=== PATIENT | female | born 1935 | race Caucasian/White ===

== ENCOUNTER → 2016-08-18 | Outpatient (CLI) | payer BC ==
[~2016-08-18] MED LIST: ACET-1256 PO; CZR50 PO; FLV1 PO; PRLSR20 PO; SIMV-150 PO; TRAM-10 PO; VTMD PO; XRL20 PO
[2016-08-18 17:29] LABS: CHOLESTEROL/HDL RATIO 2.4
== END | disposition home or self-care (01) ==
LOC: C.LABBFT 10:17
PROVIDERS: ATTEND Internal Medicine
DX: I65.29 Occlusion and stenosis of unspecified carotid artery (principal)

== ENCOUNTER → 2017-06-08 | Outpatient (CLI) | payer BC ==
[2017-06-08 17:50] LABS: BASO % 0.9 %; BASO ABS # 0.07 K/uL (0-0.2); COMPLETE YES; EOS % 1.3 %; HEMATOCRIT 43.8 % (37-47); IG% 0.1 %; LYMPH % 44.2 %; LYMPH ABS # 3.63 K/uL (1.2-3.4); MEAN CELL VOLUME 101.4 fL (80-100); MEAN CORPUSCULAR HEMOGLOBIN 33.3 pg (25-34); MEAN CORPUSCULAR HGB CONC 32.9 g/dl (32-36); MEAN PLATELET VOLUME 10.3 fL (7.4-10.4); MONO % 9.5 %; PLATELET COUNT 251 K/uL (130-400); RED BLOOD COUNT 4.32 M/uL (4.2-5.4); WHITE BLOOD COUNT 8.21 K/uL (4.8-10.8)
[2017-06-08 17:54] LABS: ALT/SGPT 17 U/L (12-78); AST/SGOT 15 U/L (15-37); BLOOD UREA NITROGEN 14 mg/dl (7-18); CALCIUM 9.5 mg/dl (8.5-10.1); CARBON DIOXIDE 29 mmol/L (21-32); CHLORIDE 108 mmol/L (98-107); CREATININE 0.72 mg/dl (0.60-1.20); GLUCOSE 97 mg/dl (70-99); POTASSIUM 3.6 mmol/L (3.5-5.1); SODIUM 142 mmol/L (136-145)
[2017-06-08 18:05] LABS: ALB/GLOB RATIO 1.1 (0.9-2); ALKALINE PHOSPHATASE 74 U/L (45-117)
== END | disposition home or self-care (01) ==
LOC: C.LABBFT 15:55
PROVIDERS: ATTEND Internal Medicine
DX: Z79.01 Long term (current) use of anticoagulants (principal); I10 Essential (primary) hypertension; M85.80 Other specified disorders of bone density and structure, unspecified site; Q21.1 Atrial septal defect

== ENCOUNTER 2020-08-13 19:27 | Inpatient (IN) ==
[2020-08-13] MEDS ORDERED: SODIUM CHLORIDE 0.9% 1000ML 1,000 ML IV ONE (19:43)
[2020-08-13] MEDS ORDERED: ACETAMINOPHEN 1,000 MG/100 ML VIAL IV STA (19:43)
[2020-08-13] MEDS ORDERED: ONDANSETRON INJ 2 MG/ML 2 ML VIAL IV STA (19:44)
[2020-08-13] MEDS ORDERED: OPTIRAY 320 125ml IV ONE (19:54)
[2020-08-13] MEDS ORDERED: METOCLOPRAMIDE HCL INJ 5 MG/ML 2 ML VIAL IV STA (19:59)
[2020-08-13] MEDS ORDERED: SODIUM CHLORIDE 0.9% 500 ML IV ONE (19:59)
[2020-08-13] MEDS ORDERED: PIPERACILLIN/TAZOBACTAM 4.5 GM/120 ML BAG IV ONE (20:02)
[2020-08-13] MEDS ORDERED: PIPERACILL/TAZOBAC CONSULT ACTIVE PRN (20:02)
[2020-08-13] MEDS ORDERED: DAPTOMYCIN IV ONE (20:02)
[2020-08-13] MEDS ORDERED: MAGNESIUM SULFATE / D5W 1 GM/100 ML BAG IV STA (20:06)
--- NOTE | 2020-08-13 20:11 | CT Scan Report ---
CT ANGIOGRAPHY OF THE CHEST, PULMONARY EMBOLUS PROTOCOL CLINICAL HISTORY: Shortness of breath. Evaluate for pulmonary embolus. COMPARISON STUDY: Chest radiograph April 15, 2015. TECHNIQUE: Following IV administration of 119 mL of Optiray-320, helical axial images of the chest we re obtained utilizing the pulmonary embolus protocol. Maximal intensity projections and sagittal and coronal reformats were viewed on an independent 3D workstation. IV contrast was administered withou t complication. Automated exposure control was utilized for the study. A dose lowering technique wa s utilized adhering to the principles of ALARA. FINDINGS: This exam is moderately compromised by respiratory motion artifact. No definite pulmonary embolus is identified. Apparent linear filling defects within several segmental left lower lobe branc hes are probably artifactual. No pericardial effusion is noted. No pneumothorax or pleural effusion i s noted. Lungs are suboptimally assessed given respiratory motion. There are mild groundglass opaciti es and tiny centrilobular nodules within the lungs. A few subpleural right lung nodules likely reflec t scarring or atelectasis. No acute fracture or suspicious lesion is noted within the bony thorax. Th e abdomen and pelvis will be reported separately. IMPRESSION: 1. Exam moderately compromised by respiratory motion artifact. No definite pulmonary emboli. Equivoca l linear filling defects within several segmental left lower lobe pulmonary arteries are likely artif actual. Chronic pulmonary emboli could appear similar but are considered less likely. 2. No consolidation. Minimal groundglass opacities and centrilobular nodules within the lungs. ACT 112: Negative or not required by law. Electronically signed by: Rufino Graves M.D. 08/13/2020 8:09 PM
--- NOTE | 2020-08-13 20:20 | CT Scan Report ---
CT OF THE ABDOMEN AND PELVIS WITH CONTRAST CLINICAL HISTORY: Severe abdominal pain. COMPARISON STUDY: CT of the abdomen and pelvis and pelvic ultrasound November 02, 2010. TECHNIQUE: Following IV administration of 119 mL of Optiray-320, axial images of the abdomen and pelv is were obtained from the lung bases to the proximal femurs. Images were reviewed in the axial, sagit lonnie, and coronal planes. IV contrast was administered without complication. Automated exposure contr ol was utilized for the study. A dose lowering technique was utilized adhering to the principles of ALARA. CT DOSE: 791.18 mGy.cm FINDINGS: Exam is mildly compromised by motion artifact as well as streak artifact from bilateral hip arthroplasties. No pneumatosis, free air or portal venous gas is present. There are calcified granul omas within the spleen and liver. There is no significant biliary ductal dilatation status post alan cystectomy. The adrenal glands, kidneys and pancreas are unremarkable. There is a probable 2 mm right renal calculus. There is no hydronephrosis. No peripancreatic infiltration is present. There is no p ancreatic ductal dilatation. A large amount of stool within the rectum is noted. There is mild perire ctal/presacral stranding. There is no fluid collection. There is no extraluminal gas. Colonic diverti culosis is noted without evidence for acute diverticulitis. There is mild gaseous distention of small and large bowel. No transition point is identified. Postoperative findings within the right colon ar e noted. There is no lymphadenopathy. No acute fracture or suspicious lesion is identified within the visualized skeletal structures. Major vasculature is patent. Tortuosity of the abdominal aorta is no wolfgang. IMPRESSION: 1. Large amount of stool within the rectum consistent with fecal impaction. Mild perirectal/presacral stranding may reflect stercoral colitis. Mild gaseous distention of small and large bowel which may be related to the stool within the rectum or represent an ileus. No transition point identified. 2. Exam mildly compromised by motion artifact and artifact from bilateral hip arthroplasties. 3. Colonic diverticulosis without evidence for acute diverticulitis. ACT 112: Negative or not required by law. Electronically signed by: Rufino Graves M.D. 08/13/2020 8:19 PM
[2020-08-13 20:32] LABS: iSTAT Creatinine 0.8 mg/dl (0.6-1.3); iSTAT Hemoglobin 12.9 g/dl (12.0-16.0); iSTAT Ionized Calcium 0.89 mmol/l (1.12-1.32); iSTAT Potassium 2.7 mmol/L (3.3-5.0)
[2020-08-13 20:35] LABS: Influenza A virus by PCR Negative (Neg); Influenza B virus by PCR Negative (Neg); RSV by PCR Negative (Neg); SARS CoV2 RNA(COVID-19) InHosp NEGATIVE (Negative)
[2020-08-13] MEDS ORDERED: methylPREDNISolone 125 MG/2 ML VIAL IV STA (20:53)
[2020-08-13 20:55] LABS: Basophils # (auto) 0.02 K/uL (0-0.2); Basophils % (auto) 0.2 %; Eosinophils # (auto) 0.01 K/uL (0-0.5); Eosinophils % (auto) 0.1 %; Hematocrit (blood only) 43.9 % (37-47); Hemoglobin 14.9 g/dL (12.0-16.0); Immature Granulocytes # (auto) 0.07 K/uL (0.00-0.02); Immature Granulocytes % (auto) 0.5 %; Lymphocytes # (auto) 2.57 K/uL (1.2-3.4); Lymphocytes % (auto) 19.4 %; Mean Corpuscular Hemoglobin 34.3 pg (25-34); Mean Corpuscular Hgb Conc 33.9 g/dL (32-36); Mean Corpuscular Volume 101.2 fL (80-100); Mean Platelet Volume 9.9 fL (7.4-10.4); Monocytes # (auto) 0.92 K/uL (0.11-0.59); Monocytes % (auto) 6.9 %; Neutrophils # (auto) 9.69 K/uL (1.4-6.5); Neutrophils % (auto) 72.9 %; Platelet Count 295 K/uL (130-400); RDW Coefficient of Variation 16.9 % (11.5-14.5); RDW Standard Deviation 62.5 fL (36.4-46.3); Red Blood Count 4.34 M/uL (4.2-5.4); White Blood Count 13.28 K/uL (4.8-10.8)
--- NOTE | 2020-08-13 20:59 | XRay Report ---
XR chest 1V portable CLINICAL HISTORY: cvc placement COMPARISON STUDY: Chest CT performed earlier today. FINDINGS: Tip of the left internal jugular central line projects in the SVC. Skin folds project over the chest. There is no pneumothorax or pleural effusion. Calcified granuloma within the left lower lo be is noted. There is a calcified right hilar node. Cardiac size is normal. There is no consolidation . There is no evidence for pulmonary edema. Mild gaseous distention of several bowel loops within the upper abdomen is better depicted on the abdominal CT. IMPRESSION: No pneumothorax placement of a left internal jugular central line. ACT 112: Negative or not required by law. Electronically signed by: Rufino Graves M.D. 08/13/2020 8:58 PM
[2020-08-13 21:02] LABS: Base Excess VBG -3.1 mEq/L; HCO3 VBG 22 mmol/L; Oxygen Saturation VBG < 60.0 %; PCO2 VBG 38 mmHg (38-50); PO2 VBG 25 mmHg; pH VBG 7.37 (7.36-7.41)
[2020-08-13] MEDS: POTASSIUM CHLORIDE / WTR 10 MEQ/100 ML PLCT IV SCH ×2 (21:12→23:16)
[2020-08-13 21:17] LABS: INR 1.4 (0.9-1.1); Partial Thromboplastin Ratio 1.2; Partial Thromboplastin Time 32.5 Seconds (21.0-31.0); Prothrombin Time 14.7 Seconds (9.0-12.0)
[2020-08-13] MEDS ORDERED: LEVALBUTEROL HCL 1.25 MG/3 ML NEB NEB STA ×2 (21:18)
--- NOTE | 2020-08-13 21:18 | Emergency Department Note ---
History of Present Illness General Chief complaint: Abdominal Pain Stated complaint: AB PAIN Source: patient, family (daughter), EMS, RN notes reviewed and old records reviewed Mode of arrival: EMS Limitations: altered mental status and physical limitation (CHOCTAW) History of Present Illness Provider complaint: abdominal pain Onset (ago): day(s) 5 Location: abdomen Radiation: back Severity: severe Pain Consistency: + constant Maximum Pain Intensity: 10 Current Pain Intensity: 10 Quality: + aching Relieved By: + movement Exacerbated By: + eating Associated symptoms: + confusion, + loss of appetite, + nausea/vomiting, + shortness of breath and + weakness; no chest pain, no cough, no diaphoresis, no fever/chills and no headaches Treatments prior to arrival: none This is an 85-year-old female sent in by the family over concerns of the patient had become weak and hypoxic over the past several days. The patient's family reports that the patient stopped eating approximately 5 days ago. She has not had any stool output and has had no urine output. The patient per the daughter refused to come to the hospital despite the family trying move her multiple times. Upon arrival to the emergency department via EMS the patient is hypoxic on a 15 L nonrebreather mask. She is also hypotensive and tachycardic complaining of abdominal pain which she describes as an ache radiating into her back. She reports eating makes the pain worse and immobilization makes the pain better. She has not taken anything for the pain. Home Medications Medication Instructions Recorded Confirmed Type acetaminophen 500 mg tablet 1,000 mg PO DAILY tab 03/13/19 08/13/20 History cholecalciferol (vitamin D3) 25 1,000 units PO DAILY 03/20/19 08/13/20 History mcg (1,000 unit) capsule folic acid 1 mg tablet 1 mg PO DAILY #90 tab 08/28/19 08/13/20 Rx rivaroxaban 15 mg tablet 15 mg PO QPM #90 tab 10/17/19 08/13/20 Rx omeprazole 20 mg capsule,delayed 20 mg PO BID #180 cap 01/16/20 08/13/20 Rx release losartan 50 mg tablet 50 mg PO DAILY #90 tab 06/03/20 08/13/20 Rx diclofenac sodium 1 % topical gel 4 g TOPICAL QID #100 g 06/23/20 08/13/20 Rx multivitamin 1 tab PO DAILY 06/30/20 08/13/20 History Allergies Allergy/AdvReac Type Severity Reaction Status Date / Time sulfamethoxazole Allergy Mild MOUTH SORES Verified 08/13/20 20:07 trimethoprim Allergy Mild MOUTH SORES Verified 08/13/20 20:07 morphine AdvReac Intermediate HEART Verified 08/13/20 20:07 PALPITATIONS,CHEST TIGHTNESS,VOMITING Opioid Analgesics AdvReac Intermediate HEART Uncoded 08/13/20 20:07 PALPITATIONS, CHEST TIGHTNESS, VOMITING Past Med/Surg History Medical History Depression History of arterial thrombosis History of Clostridium difficile colitis MRSA (methicillin resistant Staphylococcus aureus) Rheumatic fever Spinal stenosis Tubular adenoma of colon Social History Smoking Status: Never smoker Hx Alcohol Use: No Hx Substance Use: No Preferred Language: Yi marital status: Current Living Situation: Family current occupational status: retired Feels Safe at Home: Yes Dental Care, Regularly: No Physical Activity Frequency: Does not Exercise Seatbelt Use: always Sunscreen Use: No Review of Systems A total of 10 systems reviewed and were otherwise negative Physical Exam Vital Signs Vital Signs - 24 hr 08/13/20 19:52 08/13/20 19:57 08/13/20 20:21 Temperature Temperature Source Pulse Rate 103 H 100 H Pulse Rate [Right Finger] 113 H Respiratory Rate 22 22 22 Respiratory Effort / Characteristics Respiratory Depth Normal Blood Pressure 134/59 L Blood Pressure [Right Arm] 100/68 Blood Pressure Mean 84 Blood Pressure Mean [Right Arm] 78 Blood Pressure Position [Right Arm] Lying Pulse Oximetry 79 L 94 90 Oxygen Delivery Method Non-rebreather BiPAP Oxygen Flow Rate 15 Fraction of Inspired Oxygen 100 Sepsis Recent Fever Within 48 Hours No Sepsis New/Unexplained Change in Mental Status N/A Sepsis Action Taken by Nursing No Action Required 08/13/20 20:58 08/13/20 21:47 08/13/20 21:50 Temperature 37.0 C Temperature Source Rectal Pulse Rate Pulse Rate [Right Finger] 120 H 90 95 H Respiratory Rate 30 H 18 22 Respiratory Effort / Characteristics Non-Labored Spontaneous Respiratory Depth Normal Normal Blood Pressure Blood Pressure [Right Arm] 92/62 L 62/50 L Blood Pressure Mean Blood Pressure Mean [Right Arm] 72 54 Blood Pressure Position [Right Arm] Lying Pulse Oximetry 88 L 98 98 Oxygen Delivery Method BiPAP Nasal Cannula Nasal Cannula Oxygen Flow Rate 6 4 Fraction of Inspired Oxygen Sepsis Recent Fever Within 48 Hours Sepsis New/Unexplained Change in Mental Status Sepsis Action Taken by Nursing VITAL SIGNS - Vital signs and nursing notes were reviewed. GENERAL - 85-year-old female appearing stated age who is in acute distress. [place]CTAW SKIN - Ducub ulcer Stage 2 HEAD - NC/AT. EYES - PERRL with EOMI bilaterally. Sclera anicteric. Palpebral conjunctiva pink and moist with no injection noted. EARS - No deformities of external structures noted on gross examination bilaterally. No pain elicited with palpation of the tragus bilaterally. External auditory canals without discharge or otorrhea. Tympanic membranes pearly arevalo without retraction or bulging. No fluid or purulent material visualized behind the TM. Handle of malleus, umbo, cone of light, pars tensa/flaccid all easily visualized. NOSE - Midline and without cyanosis. No epistaxis or purulent drainage noted. Septum midline without deviation or septal hematoma noted. MOUTH/OROPHARYNX - Without perioral cyanosis. Buccal mucosa pink and moist and without leukoplakia. Tongue midline with equal elevation of palate bilaterally. No tonsillar hypertrophy, erythema, or exudates noted. dentition noted. NECK - Neck with FROM. Supple to palpation. lymphadenopathy noted. No nuchal rigidity. LUNGS - Chest wall symmetric without accessory muscle use, intercostals retractions, or central cyanosis. Normal vesicular breath sounds CTA B/L. No wheezes, rales, or rhonchi appreciated. CARDIAC - RRR with S1/S2. No murmur, rubs, or gallops appreciated. ABDOMEN - Abdominal contour without pulsations or visible masses. BS normoactive all four quadrants. No tenderness, palpable masses, hepatosplenomegaly, or ascites noted. RECTUM- Large amount of brown stool removed in rectal vault, no blood present EXTREMITIES - No clubbing or peripheral cyanosis. No pretibial edema present. +3/5 radial, posterior tibial, and dorsalis pedis pulses palpated throughout. +5/5 strength noted in UE/LE bilaterally. NEUROLOGIC - Cranial nerves II through XII grossly intact. Sensory intact to light touch throughout. Patellar reflexes +2/4. PSYCH - A&Ox3 and cooperates fully with examiner. Pt is very pleasant and i nteracts well with examiner. Procedures Central Line Placement Left IJ: Time Out Performed: Yes (I performed the procedure) Patient Placed on Monitor/Pulse Ox: Yes MD Prep: mask, gown and gloves Central Line Prep: Povidone-Iodine 1%, Chlorhexidine scrub and sterile drapes applied Local Anesthetic: lidocaine 1% Amount of anesthesia used (mL): 3 Ultrasound Used for Placement: Yes Central Line Lumen Inserted: triple Post Procedure: sutured in place, good blood return, all ports aspirated, flushed, capped and sterile dressing applied Post Procedure X-Ray: tip of catheter in good position and no pneumothorax seen Patient Tolerated Procedure: well Complications: none Rectal Disimpaction Time out performed rectal disimpaction: Yes Indication: fecal impaction Procedural Sedation: No Sedation/Analgesia: none Technique: manual disimpaction with gloved finger Result: significant stool output Patient Tolerated Procedure: well and no complications Complications: none Course Administered Medications Potassium Chloride (K Jonathan / Wtr) 10 meq in 100 mls @ 100 mls/hr IV Q1H TRISH Stop: 08/13/20 22:59 Last Admin: 08/13/20 21:12 Dose: 100 mls/hr Documented by: [id number] Discontinued Medications Acetaminophen (Ofirmev) 1,000 mg in 100 mls @ 400 mls/hr IV NOW STA Stop: 08/13/20 19:57 Last Infusion: 08/13/20 21:11 Dose: 0 mls/hr Documented by: [id number] Admin: 08/13/20 20:14 Dose: 400 mls/hr Documented by: [id number] Sodium Chloride (Nss 1000ml) 1,000 mls @ 999 mls/hr IV .Q1H1M ONE Stop: 08/13/20 20:43 Last Infusion: 08/13/20 21:45 Dose: 0 mls/hr Documented by: [id number] Admin: 08/13/20 20:14 Dose: 999 mls/hr Documented by: [id number] Sodium Chloride (Nss) 500 mls @ 999 mls/hr IV .Q31M ONE Stop: 08/13/20 20:29 Last Infusion: 08/13/20 21:45 Dose: 0 mls/hr Documented by: [id number] Admin: 08/13/20 21:11 Dose: 999 mls/hr Documented by: [id number] Piperacillin Sod/Tazobactam Sod (Zosyn) 4.5 gm in 120 mls @ 240 mls/hr IV NOW ONE Stop: 08/13/20 20:31 Last Infusion: 08/13/20 21:12 Dose: 0 mls/hr Documented by: [id number] Admin: 08/13/20 20:13 Dose: 240 mls/hr Documented by: [id number] Daptomycin 272 mg/ Syringe 5.44 mls @ 2.72 mls/min IV NOW ONE; Protocol Stop: 08/13/20 20:03 Last Admin: 08/13/20 21:04 Dose: 2.72 mls/min Documented by: [id number] Magnesium Sulfate/Dextrose (Magnesium Sulfate / D5w) 1 gm in 100 mls @ 100 mls/hr IV NOW STA Stop: 08/13/20 21:05 Last Infusion: 08/13/20 21:45 Dose: 0 mls/hr Documented by: [id number] Admin: 08/13/20 20:13 Dose: 100 mls/hr Documented by: [id number] Ioversol (Optiray 320 125ml) 119 ml IV ONCE ONE Stop: 08/13/20 19:55 Last Admin: 08/13/20 19:54 Dose: 119 ml Documented by: [id number] Levalbuterol HCl (Levalbuterol Hcl 1.25 Mg/3 Ml Neb) 1.25 mg NEB NOW STA Stop: 08/13/20 21:19 Last Admin: 08/13/20 21:44 Dose: 1.25 mg Documented by: [id number] Levalbuterol HCl (Levalbuterol Hcl 1.25 Mg/3 Ml Neb) 1.25 mg NEB NOW STA Stop: 08/13/20 21:19 Last Admin: 08/13/20 21:44 Dose: Not Given Documented by: [id number] Methylprednisolone (Methylprednisolone 125 Mg/2 Ml Vial) 60 mg IV NOW STA Stop: 08/13/20 20:54 Last Admin: 08/13/20 21:11 Dose: 65 mg Documented by: [id number] Metoclopramide HCl (Metoclopramide Hcl Inj 5 Mg/Ml 2 Ml Vial) 10 mg IV NOW STA Stop: 08/13/20 20:00 Last Admin: 08/13/20 20:13 Dose: 10 mg Documented by: [id number] Morphine Sulfate (Morphine Sulfate 2 Mg/Ml Carp) 2 mg IV NOW STA Stop: 08/13/20 19:44 Last Admin: 08/13/20 21:53 Dose: 2 mg Documented by: [id number] Morphine Sulfate (Morphine Sulfate 2 Mg/Ml Carp) Confirm Administered Dose 2 mg .ROUTE .STK-MED ONE Stop: 08/13/20 21:52 Last Admin: 08/13/20 22:03 Dose: Not Given Documented by: [id number] Ondansetron HCl (Ondansetron Inj 2 Mg/Ml 2 Ml Vial) 4 mg IV NOW STA Stop: 08/13/20 19:45 Last Admin: 08/13/20 21:53 Dose: 4 mg Documented by: [id number] Ondansetron HCl (Ondansetron Inj 2 Mg/Ml 2 Ml Vial) Confirm Administered Dose 4 mg .ROUTE .STSponge-MED ONE Stop: 08/13/20 21:52 Last Admin: 08/13/20 22:03 Dose: Not Given Documented by: [id number] Medical Decision Making Differential Diagnosis Sepsis, UTI, pneumonia, metabolic, electrolyte abnormalities, cardiac sources, intracerebral event, toxicologic, neurologic, as well as other pathologies. Medical Records Attestation: I reviewed the patient's medical records. Home Medications Current Medication List: was personally reviewed by me Laboratory Data Attestation: I reviewed the patient's lab results. Result diagrams: 08/13/20 20:39 08/13/20 20:39 Lab Results 08/13/20 08/13/20 08/13/20 Range/Units 19:49 19:49 20:19 WBC (4.8-10.8) K/uL RBC (4.2-5.4) M/uL Hgb (12.0-16.0) g/dL POC Hgb 12.9 (12.0-16.0) g/dl Hct (37-47) % POC Hct 38 (37-47) % MCV (80-100) fL MCH (25-34) pg MCHC (32-36) g/dL RDW Std Deviation (36.4-46.3) fL RDW Coeff of Steve (11.5-14.5) % Plt Count (130-400) K/uL MPV (7.4-10.4) fL Immature Gran % (Auto) % Neut % (Auto) % Lymph % (Auto) % [place] % (Auto) % Eos % (Auto) % Baso % (Auto) % Neut # (Auto) (1.4-6.5) K/uL Lymph # (Auto) (1.2-3.4) K/uL [place] # (Auto) (0.11-0.59) K/uL Eos # (Auto) (0-0.5) K/uL Baso # (Auto) (0-0.2) K/uL Immature Gran # (Auto) (0.00-0.02) K/uL ESR (0-21) mm/hr PT (9.0-12.0) Seconds INR (0.9-1.1) APTT (21.0-31.0) Seconds PTT Ratio VBG pH (7.36-7.41) VBG pCO2 (38-50) mmHg VBG pO2 mmHg VBG HCO3 mmol/L VBG O2 Saturation % VBG Base Excess mEq/L Barometric Pressure mm/Hg POC Sodium 138 (135-144) mmol/L Sodium (136-145) mmol/L POC Potassium 2.7 L (3.3-5.0) mmol/L Potassium (3.5-5.1) mmol/L POC Chloride 106 (101-112) mmol/L Chloride (98-107) mmol/L Carbon Dioxide (21-32) mmol/L POC Total CO2 20 L (24-31) mmol/L Anion Gap (3-11) POC Anion Gap 15.0 L (16-25) mmol/L POC BUN 28 H (7-18) mg/dl BUN (7-18) mg/dl Creatinine (0.6-1.2) mg/dl POC Creatinine 0.8 (0.6-1.3) mg/dl Est Cr Clr Drug Dosing Est GFR ( Amer) Est GFR (Non-Af Amer) BUN/Creatinine Ratio (10-20) Glucose (70-99) mg/dl POC Glucose (other) 121 H (70-99) mg/dl Lactate (0.4-2.0) mmol/L Calcium (8.5-10.1) mg/dl POC Ioniz Calcium Kd 0.89 L (1.12-1.32) mmol/l Magnesium (1.8-2.4) mg/dl Ferritin (8-388) ng/ml Total Bilirubin (0.2-1) mg/dl AST (15-37) U/L ALT (12-78) U/L Alkaline Phosphatase (45-117) U/L Lactate Dehydrogenase (84-246) U/L Total Creatine Kinase (26-192) U/L CK-MB (CK-2) (0.5-3.6) ng/ml CK/CKMB % Calc (0-3.0) Troponin I (0-0.045) ng/ml C-Reactive Protein (0-0.29) mg/dl Total Protein (6.4-8.2) gm/dl Albumin (3.4-5.0) gm/dl Globulin (2.5-4.0) gm/dl Albumin/Globulin Ratio (0.9-2) Procalcitonin (0-0.5) ng/ml Random Cortisol mcg/dl Urine Color Urine Appearance (Clear) Urine pH (4.5-7.5) Ur Specific [place] (1.000-1.030) Urine Protein (Negative) Urine Glucose (UA) (Negative) Urine Ketones (Negative) Urine Blood (Negative) Urine Nitrite (Negative) Urine Bilirubin (Negative) Urine Urobilinogen (Negative) Ur Leukocyte Esterase (Negative) Urine RBC (0-4) /hpf Urine WBC (0-5) /hpf Ur Epithelial Cells (0-5) /lpf Ur Renal Epithelial Cell (0-5) /lpf Amorphous Sediment (None Prsent) Urine Bacteria (Negative) Hyaline Casts (0-5) /lpf Urine Mucus (None Prsent) COVID-19 Eval Order [facility]FluRsv at [facility] SARS-CoV-2 (PCR) NEGATIVE (Negative) Influenza Type A (PCR) Negative (Neg) Influenza Type B (PCR) Negative (Neg) RSV (RT-PCR) Negative (Neg) Blood Type Antibody Screen 08/13/20 08/13/20 08/13/20 Range/Units 20:39 20:39 20:39 WBC 13.28 H (4.8-10.8) K/uL RBC 4.34 (4.2-5.4) M/uL Hgb 14.9 (12.0-16.0) g/dL POC Hgb (12.0-16.0) g/dl Hct 43.9 (37-47) % POC Hct (37-47) % MCV 101.2 H (80-100) fL MCH 34.3 H (25-34) pg MCHC 33.9 (32-36) g/dL RDW Std Deviation 62.5 H (36.4-46.3) fL RDW Coeff of Steve 16.9 H (11.5-14.5) % Plt Count 295 (130-400) K/uL MPV 9.9 (7.4-10.4) fL Immature Gran % (Auto) 0.5 % Neut % (Auto) 72.9 % Lymph % (Auto) 19.4 % [place] % (Auto) 6.9 % Eos % (Auto) 0.1 % Baso % (Auto) 0.2 % Neut # (Auto) 9.69 H (1.4-6.5) K/uL Lymph # (Auto) 2.57 (1.2-3.4) K/uL [place] # (Auto) 0.92 H (0.11-0.59) K/uL Eos # (Auto) 0.01 (0-0.5) K/uL Baso # (Auto) 0.02 (0-0.2) K/uL Immature Gran # (Auto) 0.07 H (0.00-0.02) K/uL ESR 9 (0-21) mm/hr PT 14.7 H (9.0-12.0) Seconds INR 1.4 H (0.9-1.1) APTT 32.5 H (21.0-31.0) Seconds PTT Ratio 1.2 VBG pH (7.36-7.41) VBG pCO2 (38-50) mmHg VBG pO2 mmHg VBG HCO3 mmol/L VBG O2 Saturation % VBG Base Excess mEq/L Barometric Pressure mm/Hg POC Sodium (135-144) mmol/L Sodium (136-145) mmol/L POC Potassium (3.3-5.0) mmol/L Potassium (3.5-5.1) mmol/L POC Chloride (101-112) mmol/L Chloride (98-107) mmol/L Carbon Dioxide (21-32) mmol/L POC Total CO2 (24-31) mmol/L Anion Gap (3-11) POC Anion Gap (16-25) mmol/L POC BUN (7-18) mg/dl BUN (7-18) mg/dl Creatinine (0.6-1.2) mg/dl POC Creatinine (0.6-1.3) mg/dl Est Cr Clr Drug Dosing Est GFR ( Amer) Est GFR (Non-Af Amer) BUN/Creatinine Ratio (10-20) Glucose (70-99) mg/dl POC Glucose (other) (70-99) mg/dl Lactate (0.4-2.0) mmol/L Calcium (8.5-10.1) mg/dl POC Ioniz Calcium Kd (1.12-1.32) mmol/l Magnesium (1.8-2.4) mg/dl Ferritin (8-388) ng/ml Total Bilirubin (0.2-1) mg/dl AST (15-37) U/L ALT (12-78) U/L Alkaline Phosphatase (45-117) U/L Lactate Dehydrogenase (84-246) U/L Total Creatine Kinase (26-192) U/L CK-MB (CK-2) (0.5-3.6) ng/ml CK/CKMB % Calc (0-3.0) Troponin I (0-0.045) ng/ml C-Reactive Protein (0-0.29) mg/dl Total Protein (6.4-8.2) gm/dl Albumin (3.4-5.0) gm/dl Globulin (2.5-4.0) gm/dl Albumin/Globulin Ratio (0.9-2) Procalcitonin (0-0.5) ng/ml Random Cortisol mcg/dl Urine Color Urine Appearance (Clear) Urine pH (4.5-7.5) Ur Specific [place] (1.000-1.030) Urine Protein (Negative) Urine Glucose (UA) (Negative) Urine Ketones (Negative) Urine Blood (Negative) Urine Nitrite (Negative) Urine Bilirubin (Negative) Urine Urobilinogen (Negative) Ur Leukocyte Esterase (Negative) Urine RBC (0-4) /hpf Urine WBC (0-5) /hpf Ur Epithelial Cells (0-5) /lpf Ur Renal Epithelial Cell (0-5) /lpf Amorphous Sediment (None Prsent) Urine Bacteria (Negative) Hyaline Casts (0-5) /lpf Urine Mucus (None Prsent) COVID-19 Eval Order SARS-CoV-2 (PCR) (Negative) Influenza Type A (PCR) (Neg) Influenza Type B (PCR) (Neg) RSV (RT-PCR) (Neg) Blood Type Antibody Screen 08/13/20 08/13/20 08/13/20 Range/Units 20:39 20:39 20:39 WBC (4.8-10.8) K/uL RBC (4.2-5.4) M/uL Hgb (12.0-16.0) g/dL POC Hgb (12.0-16.0) g/dl Hct (37-47) % POC Hct (37-47) % MCV (80-100) fL MCH (25-34) pg MCHC (32-36) g/dL RDW Std Deviation (36.4-46.3) fL RDW Coeff of Tseve (11.5-14.5) % Plt Count (130-400) K/uL MPV (7.4-10.4) fL Immature Gran % (Auto) % Neut % (Auto) % Lymph % (Auto) % [place] % (Auto) % Eos % (Auto) % Baso % (Auto) % Neut # (Auto) (1.4-6.5) K/uL Lymph # (Auto) (1.2-3.4) K/uL [place] # (Auto) (0.11-0.59) K/uL Eos # (Auto) (0-0.5) K/uL Baso # (Auto) (0-0.2) K/uL Immature Gran # (Auto) (0.00-0.02) K/uL ESR (0-21) mm/hr PT (9.0-12.0) Seconds INR (0.9-1.1) APTT (21.0-31.0) Seconds PTT Ratio VBG pH (7.36-7.41) VBG pCO2 (38-50) mmHg VBG pO2 mmHg VBG HCO3 mmol/L VBG O2 Saturation % VBG Base Excess mEq/L Barometric Pressure mm/Hg POC Sodium (135-144) mmol/L Sodium 138 (136-145) mmol/L POC Potassium (3.3-5.0) mmol/L Potassium 2.8 L (3.5-5.1) mmol/L POC Chloride (101-112) mmol/L Chloride 102 (98-107) mmol/L Carbon Dioxide 26 (21-32) mmol/L POC Total CO2 (24-31) mmol/L Anion Gap 10.0 (3-11) POC Anion Gap (16-25) mmol/L POC BUN (7-18) mg/dl BUN 28 H (7-18) mg/dl Creatinine 1.12 (0.6-1.2) mg/dl POC Creatinine (0.6-1.3) mg/dl Est Cr Clr Drug Dosing Not Reportable Est GFR ( Amer) 51.9 Est GFR (Non-Af Amer) 44.8 BUN/Creatinine Ratio 24.7 H (10-20) Glucose 114 H (70-99) mg/dl POC Glucose (other) (70-99) mg/dl Lactate 2.8 H* (0.4-2.0) mmol/L Calcium 9.0 (8.5-10.1) mg/dl POC Ioniz Calcium Kd (1.12-1.32) mmol/l Magnesium 1.5 L (1.8-2.4) mg/dl Ferritin 551.4 H (8-388) ng/ml Total Bilirubin 1.1 H (0.2-1) mg/dl AST 33 (15-37) U/L ALT 20 (12-78) U/L Alkaline Phosphatase 95 (45-117) U/L Lactate Dehydrogenase 277 H (84-246) U/L Total Creatine Kinase 74 (26-192) U/L CK-MB (CK-2) 4.1 H (0.5-3.6) ng/ml CK/CKMB % Calc 5.5 H (0-3.0) Troponin I 0.098 H* (0-0.045) ng/ml C-Reactive Protein 1.10 H (0-0.29) mg/dl Total Protein 5.9 L (6.4-8.2) gm/dl Albumin 2.6 L (3.4-5.0) gm/dl Globulin 3.3 (2.5-4.0) gm/dl Albumin/Globulin Ratio 0.8 L (0.9-2) Procalcitonin (0-0.5) ng/ml Random Cortisol mcg/dl Urine Color Urine Appearance (Clear) Urine pH (4.5-7.5) Ur Specific [place] (1.000-1.030) Urine Protein (Negative) Urine Glucose (UA) (Negative) Urine Ketones (Negative) Urine Blood (Negative) Urine Nitrite (Negative) Urine Bilirubin (Negative) Urine Urobilinogen (Negative) Ur Leukocyte Esterase (Negative) Urine RBC (0-4) /hpf Urine WBC (0-5) /hpf Ur Epithelial Cells (0-5) /lpf Ur Renal Epithelial Cell (0-5) /lpf Amorphous Sediment (None Prsent) Urine Bacteria (Negative) Hyaline Casts (0-5) /lpf Urine Mucus (None Prsent) COVID-19 Eval Order SARS-CoV-2 (PCR) (Negative) Influenza Type A (PCR) (Neg) Influenza Type B (PCR) (Neg) RSV (RT-PCR) (Neg) Blood Type Antibody Screen 08/13/20 08/13/20 08/13/20 Range/Units 20:39 20:39 20:39 WBC (4.8-10.8) K/uL RBC (4.2-5.4) M/uL Hgb (12.0-16.0) g/dL POC Hgb (12.0-16.0) g/dl Hct (37-47) % POC Hct (37-47) % MCV (80-100) fL MCH (25-34) pg MCHC (32-36) g/dL RDW Std Deviation (36.4-46.3) fL RDW Coeff of Steve (11.5-14.5) % Plt Count (130-400) K/uL MPV (7.4-10.4) fL Immature Gran % (Auto) % Neut % (Auto) % Lymph % (Auto) % [place] % (Auto) % Eos % (Auto) % Baso % (Auto) % Neut # (Auto) (1.4-6.5) K/uL Lymph # (Auto) (1.2-3.4) K/uL [place] # (Auto) (0.11-0.59) K/uL Eos # (Auto) (0-0.5) K/uL Baso # (Auto) (0-0.2) K/uL Immature Gran # (Auto) (0.00-0.02) K/uL ESR (0-21) mm/hr PT (9.0-12.0) Seconds INR (0.9-1.1) APTT (21.0-31.0) Seconds PTT Ratio VBG pH 7.37 (7.36-7.41) VBG pCO2 38 (38-50) mmHg VBG pO2 25 mmHg VBG HCO3 22 mmol/L VBG O2 Saturation < 60.0 % VBG Base Excess -3.1 mEq/L Barometric Pressure 729.7 mm/Hg POC Sodium (135-144) mmol/L Sodium (136-145) mmol/L POC Potassium (3.3-5.0) mmol/L Potassium (3.5-5.1) mmol/L POC Chloride (101-112) mmol/L Chloride (98-107) mmol/L Carbon Dioxide (21-32) mmol/L POC Total CO2 (24-31) mmol/L Anion Gap (3-11) POC Anion Gap (16-25) mmol/L POC BUN (7-18) mg/dl BUN (7-18) mg/dl Creatinine (0.6-1.2) mg/dl POC Creatinine (0.6-1.3) mg/dl Est Cr Clr Drug Dosing Est GFR ( Amer) Est GFR (Non-Af Amer) BUN/Creatinine Ratio (10-20) Glucose (70-99) mg/dl POC Glucose (other) (70-99) mg/dl Lactate (0.4-2.0) mmol/L Calcium (8.5-10.1) mg/dl POC Ioniz Calcium Kd (1.12-1.32) mmol/l Magnesium (1.8-2.4) mg/dl Ferritin (8-388) ng/ml Total Bilirubin (0.2-1) mg/dl AST (15-37) U/L ALT (12-78) U/L Alkaline Phosphatase (45-117) U/L Lactate Dehydrogenase (84-246) U/L Total Creatine Kinase Cancelled (26-192) U/L CK-MB (CK-2) Cancelled (0.5-3.6) ng/ml CK/CKMB % Calc Cancelled (0-3.0) Troponin I (0-0.045) ng/ml C-Reactive Protein (0-0.29) mg/dl Total Protein (6.4-8.2) gm/dl Albumin (3.4-5.0) gm/dl Globulin (2.5-4.0) gm/dl Albumin/Globulin Ratio (0.9-2) Procalcitonin 0.08 (0-0.5) ng/ml Random Cortisol mcg/dl Urine Color Urine Appearance (Clear) Urine pH (4.5-7.5) Ur Specific [place] (1.000-1.030) Urine Protein (Negative) Urine Glucose (UA) (Negative) Urine Ketones (Negative) Urine Blood (Negative) Urine Nitrite (Negative) Urine Bilirubin (Negative) Urine Urobilinogen (Negative) Ur Leukocyte Esterase (Negative) Urine RBC (0-4) /hpf Urine WBC (0-5) /hpf Ur Epithelial Cells (0-5) /lpf Ur Renal Epithelial Cell (0-5) /lpf Amorphous Sediment (None Prsent) Urine Bacteria (Negative) Hyaline Casts (0-5) /lpf Urine Mucus (None Prsent) COVID-19 Eval Order SARS-CoV-2 (PCR) (Negative) Influenza Type A (PCR) (Neg) Influenza Type B (PCR) (Neg) RSV (RT-PCR) (Neg) Blood Type Antibody Screen 08/13/20 08/13/20 08/13/20 Range/Units 20:39 20:39 21:24 WBC (4.8-10.8) K/uL RBC (4.2-5.4) M/uL Hgb (12.0-16.0) g/dL POC Hgb (12.0-16.0) g/dl Hct (37-47) % POC Hct (37-47) % MCV (80-100) fL MCH (25-34) pg MCHC (32-36) g/dL RDW Std Deviation (36.4-46.3) fL RDW Coeff of Steve (11.5-14.5) % Plt Count (130-400) K/uL MPV (7.4-10.4) fL Immature Gran % (Auto) % Neut % (Auto) % Lymph % (Auto) % [place] % (Auto) % Eos % (Auto) % Baso % (Auto) % Neut # (Auto) (1.4-6.5) K/uL Lymph # (Auto) (1.2-3.4) K/uL [place] # (Auto) (0.11-0.59) K/uL Eos # (Auto) (0-0.5) K/uL Baso # (Auto) (0-0.2) K/uL Immature Gran # (Auto) (0.00-0.02) K/uL ESR (0-21) mm/hr PT (9.0-12.0) Seconds INR (0.9-1.1) APTT (21.0-31.0) Seconds PTT Ratio VBG pH (7.36-7.41) VBG pCO2 (38-50) mmHg VBG pO2 mmHg VBG HCO3 mmol/L VBG O2 Saturation % VBG Base Excess mEq/L Barometric Pressure mm/Hg POC Sodium (135-144) mmol/L Sodium (136-145) mmol/L POC Potassium (3.3-5.0) mmol/L Potassium (3.5-5.1) mmol/L POC Chloride (101-112) mmol/L Chloride (98-107) mmol/L Carbon Dioxide (21-32) mmol/L POC Total CO2 (24-31) mmol/L Anion Gap (3-11) POC Anion Gap (16-25) mmol/L POC BUN (7-18) mg/dl BUN (7-18) mg/dl Creatinine (0.6-1.2) mg/dl POC Creatinine (0.6-1.3) mg/dl Est Cr Clr Drug Dosing Est GFR ( Amer) Est GFR (Non-Af Amer) BUN/Creatinine Ratio (10-20) Glucose (70-99) mg/dl POC Glucose (other) (70-99) mg/dl Lactate (0.4-2.0) mmol/L Calcium (8.5-10.1) mg/dl POC Ioniz Calcium Kd (1.12-1.32) mmol/l Magnesium (1.8-2.4) mg/dl Ferritin (8-388) ng/ml Total Bilirubin (0.2-1) mg/dl AST (15-37) U/L ALT (12-78) U/L Alkaline Phosphatase (45-117) U/L Lactate Dehydrogenase (84-246) U/L Total Creatine Kinase (26-192) U/L CK-MB (CK-2) (0.5-3.6) ng/ml CK/CKMB % Calc (0-3.0) Troponin I (0-0.045) ng/ml C-Reactive Protein (0-0.29) mg/dl Total Protein (6.4-8.2) gm/dl Albumin (3.4-5.0) gm/dl Globulin (2.5-4.0) gm/dl Albumin/Globulin Ratio (0.9-2) Procalcitonin (0-0.5) ng/ml Random Cortisol 45.69 mcg/dl Urine Color [place] Urine Appearance Cloudy A (Clear) Urine pH 6.5 (4.5-7.5) Ur Specific [place] 1.010 (1.000-1.030) Urine Protein 2+ H (Negative) Urine Glucose (UA) Negative (Negative) Urine Ketones Trace H (Negative) Urine Blood 2+ H (Negative) Urine Nitrite Negative (Negative) Urine Bilirubin 2+ H (Negative) Urine Urobilinogen Positive H (Negative) Ur Leukocyte Esterase 2+ H (Negative) Urine RBC 10-30 H (0-4) /hpf Urine WBC >30 H (0-5) /hpf Ur Epithelial Cells >30 H (0-5) /lpf Ur Renal Epithelial Cell 5-10 H (0-5) /lpf Amorphous Sediment Present A (None Prsent) Urine Bacteria 2+ H (Negative) Hyaline Casts 10-30 H (0-5) /lpf Urine Mucus Present A (None Prsent) COVID-19 Eval Order SARS-CoV-2 (PCR) (Negative) Influenza Type A (PCR) (Neg) Influenza Type B (PCR) (Neg) RSV (RT-PCR) (Neg) Blood Type O Positive Antibody Screen NEGATIVE Imaging Data Radiologist's Impression: [facility] [place] [phone] CT Scan Report Patient: NEETU,IFTIKHAR A Admit Date: 08/13/20 MR#: [id number] Address1: [address] Acct ID:[id number] Address2: Date: 1935 [facility] [address] Age: 85 Location: ED Sex: F Room/Bed: Att Phy: Diagnosis: AB PAIN Tanika Phy: Estuardo Young MD Service Date: 08/13/20 [facility] Phy: Interpreting Phy: Rufino Graves MD Admit Phy: Ordering Phy: Aamir Brown MD cc: ~ CT ANGIOGRAPHY OF THE CHEST, PULMONARY EMBOLUS PROTOCOL CLINICAL HISTORY: Shortness of breath. Evaluate for pulmonary embolus. COMPARISON STUDY: Chest radiograph April 15, 2015. TECHNIQUE: Following IV administration of 119 mL of Optiray-320, helical axial images of the chest were obtained utilizing the pulmonary embolus protocol. Maximal intensity projections and sagittal and coronal reformats were viewed on an independent 3D workstation. IV contrast was administered without complication. Automated exposure control was utilized for the study. A dose lowering technique was utilized adhering to the principles of ALARA. FINDINGS: This exam is moderately compromised by respiratory motion artifact. No definite pulmonary embolus is identified. Apparent linear filling defects within several segmental left lower lobe branches are probably artifactual. No pericardial effusion is noted. No pneumothorax or pleural effusion is noted. Lungs are suboptimally assessed given respiratory motion. There are mild groundglass opacities and tiny centrilobular nodules within the lungs. A few subpleural right lung nodules likely reflect scarring or atelectasis. No acute fracture or suspicious lesion is noted within the bony thorax. The abdomen and pelvis will be reported separately. IMPRESSION: 1. Exam moderately compromised by respiratory motion artifact. No definite pulmonary emboli. Equivocal linear filling defects within several segmental left lower lobe pulmonary arteries are likely artifactual. Chronic pulmonary emboli could appear similar but are considered less likely. 2. No consolidation. Minimal groundglass opacities and centrilobular nodules within the lungs. ACT 112: Negative or not required by law. Electronically signed by: Rufino Graves M.D. 08/13/2020 8:09 PM Dictated: 08/13/202000 Transcribed: 08/13/202000 [place], [place] [phone] CT Scan Report Patient: IFTIKHAR DE ANDA Admit Date: 08/13/20 MR#: [id number] Address1: [address] Acct ID:[id number] Address2: Date: 1935 [facility] Zip: [place] [address] Age: 85 Location: ED Sex: F Room/Bed: Att Phy: Diagnosis: AB PAIN Tanika Phy: Estuardo Young MD Service Date: 08/13/20 [facility] Phy: Interpreting Phy: Rufino Graves MD Admit Phy: Ordering Phy: Aamir Brown MD cc: ~ CT OF THE ABDOMEN AND PELVIS WITH CONTRAST CLINICAL HISTORY: Severe abdominal pain. COMPARISON STUDY: CT of the abdomen and pelvis and pelvic ultrasound November 02, 2010. TECHNIQUE: Following IV administration of 119 mL of Optiray-320, axial images of the abdomen and pelvis were obtained from the lung bases to the proximal femurs. Images were reviewed in the axial, sagittal, and coronal planes. IV contrast was administered without complication. Automated exposure control was utilized for the study. A dose lowering technique was utilized adhering to the principles of ALARA. CT DOSE: 791.18 mGy.cm FINDINGS: Exam is mildly compromised by motion artifact as well as streak artifact from bilateral hip arthroplasties. No pneumatosis, free air or portal venous gas is present. There are calcified granulomas within the spleen and liver. There is no significant biliary ductal dilatation status post cholecystectomy. The adrenal glands, kidneys and pancreas are unremarkable. There is a probable 2 mm right renal calculus. There is no hydronephrosis. No peripancreatic infiltration is present. There is no pancreatic ductal dilatation. A large amount of stool within the rectum is noted. There is mild perirectal/presacral stranding. There is no fluid collection. There is no extraluminal gas. Colonic diverticulosis is noted without evidence for acute diverticulitis. There is mild gaseous distention of small and large bowel. No transition point is identified. Postoperative findings within the right colon are noted. There is no lymphadenopathy. No acute fracture or suspicious lesion i s identified within the visualized skeletal structures. Major vasculature is patent. Tortuosity of the abdominal aorta is noted. IMPRESSION: 1. Large amount of stool within the rectum consistent with fecal impaction. Mild perirectal/presacral stranding may reflect stercoral colitis. Mild gaseous distention of small and large bowel which may be related to the stool within the rectum or represent an ileus. No transition point identified. 2. Exam mildly compromised by motion artifact and artifact from bilateral hip arthroplasties. 3. Colonic diverticulosis without evidence for acute diverticulitis. ACT 112: Negative or not required by law. Electronically signed by: Rufino Gravse M.D. 08/13/2020 8:19 PM Dictated: 08/13/202000 Transcribed: 08/13/202000 [place], [place] [phone] XRay Report Patient: IFTIKHAR DE ANDA Admit Date: 08/13/20 MR#: [id number] Address1: [address] Acct ID:[id number] Address2: Date: 1935 [facility] Zip: [place] [address] Age: 85 Location: ED Sex: F Room/Bed: Att Phy: Diagnosis: AB PAIN Tanika Phy: Estuardo Young MD Service Date: 08/13/20 Fam Phy: Interpreting Phy: Rufino Graves MD Admit Phy: Ordering Phy: Aamir Brown MD cc: ~ XR chest 1V portable CLINICAL HISTORY: cvc placement COMPARISON STUDY: Chest CT performed earlier today. FINDINGS: Tip of the left internal jugular central line projects in the SVC. Skin folds project over the chest. There is no pneumothorax or pleural effusion. Calcified granuloma within the left lower lobe is noted. There is a calcified right hilar node. Cardiac size is normal. There is no consolidation. There is no evidence for pulmonary edema. Mild gaseous distention of several bowel loops within the upper abdomen is better depicted on the abdominal CT. IMPRESSION: No pneumothorax placement of a left internal jugular central line. ACT 112: Negative or not required by law. Electronically signed by: Rufino Graves M.D. 08/13/2020 8:58 PM Dictated: 08/13/202052 Transcribed: 08/13/202052 ECG Data Attestation: I personally reviewed and interpreted this ECG as follows: Indication: abdominal pain Rate (beats per minute): 97 Rhythm: sinus rhythm Findings: + other (Premature Supraventricular complex); no ST depression and no ST elevation Comparison ECG Date: from (11/21/2010) MDM Narrative Patient was seen and evaluated as above in room C9 then moved to B1 after cT scan. Review was performed of nursing notes and vital signs. I did review pertinent previous visits and patient history. After obtaining a thorough history and physical examination the above work up was performed. This is an 85-year-old female who presents emergency department with altered mental status. Upon arrival to the emergency department patient is hypoxic hypotensive and tachycardic. Sepsis alert was immediately initiated. As the patient was complaining of's abdominal pain she was immediately sent for CT of the abdomen and pelvis. This was concerning for proctoscopy sterile colitis. In the meantime IV access was unable to be obtained therefore central line was placed. Her potassium was found to be low. Her white blood cell count was elevated. She was started on broad-spectrum antibiotics including Zosyn and daptomycin. The patient's potassium was repleted here in the emergency department. I disimpacted the patient as above. I did discuss the case with the hospitalist service who did agree to admit the patient. An order was placed for continuous cardiac monitoring. The monitor shows a rate of 100 with Normal SInus rhythm. The patient was evaluated during a period of high volume and high acuity while the hospital was at overcapacity during the global COVID-19 pandemic, and that diagnosis was suspected/considered upon their initial presentation. Their evaluation, treatment and testing was consistent with current guidelines for patients who present with complaints or symptoms that may be related to COVID- 19. Impression & Plan Abdominal pain, Acute hypotension, Fecal impaction in rectum, Hypoxia Critical Care Time I have personally spent greater than 90 minutes of critical care time in the direct management of this patient. This includes bedside care, interpretation of diagnostic studies, and testing, discussion with consultants, patient, and family members, and other required patient management activities. This 90 minutes is in excess of all separately billable procedures. Discharge Plan Visit Data Chief Complaint: Abdominal Pain Stated Complaint: AB PAIN ED Provider: Aamir Brown Discharge Problem: Abdominal pain, Acute hypotension, Fecal impaction in rectum, Hypoxia Forms Stand Alone Forms: My [facility] [employer] Prescriptions Prescriptions: No Action folic acid 1 mg tablet 1 mg PO DAILY Qty: 90 RF: 3 Xarelto 15 mg tablet 15 mg PO QPM Qty: 90 RF: 3 omeprazole 20 mg capsule,delayed release(DR/EC) 20 mg PO BID Qty: 180 RF: 3 losartan 50 mg tablet 50 mg PO DAILY Qty: 90 RF: 3 multivitamin [Daily Multi-Vitamin] Tablet 1 tab PO DAILY RF: 0 diclofenac sodium 1 % gel 4 g topical QID Qty: 100 RF: 5 acetaminophen 500 mg tablet 1,000 mg PO DAILY RF: 0 cholecalciferol (vitamin D3) 1,000 unit capsule 1,000 units PO DAILY RF: 0
[2020-08-13 21:19] LABS: Alanine Aminotransferase 20 U/L (12-78); Albumin Level 2.6 gm/dl (3.4-5.0); Aspartate Aminotransferase 33 U/L (15-37); BUN Creatinine Ratio 24.7 (10-20); Blood Urea Nitrogen 28 mg/dl (7-18); Carbon Dioxide 26 mmol/L (21-32); Chloride 102 mmol/L (98-107); Est GFR (African American) 51.9; Est GFR (Non-African American) 44.8; Glucose 114 mg/dl (70-99); Magnesium 1.5 mg/dl (1.8-2.4); Potassium 2.8 mmol/L (3.5-5.1); Sodium 138 mmol/L (136-145)
[2020-08-13 21:28] LABS: Albumin Globulin Ratio 0.8 (0.9-2); Alkaline Phosphatase 95 U/L (45-117); Bilirubin,Total 1.1 mg/dl (0.2-1); Creatine Kinase 74 U/L (26-192); Creatine Kinase MB 4.1 ng/ml (0.5-3.6); Ferritin 551.4 ng/ml (8-388); Globulin 3.3 gm/dl (2.5-4.0); Total Protein 5.9 gm/dl (6.4-8.2); Troponin I 0.098 ng/ml (0-0.045)
--- NOTE | 2020-08-13 21:28 | History & Physical Report ---
Date of Service August 13, 2020 Assessment & Plan (1) Abdominal pain: Katherine is an 85-year-old female with a past medical history of CVA, hypertension, osteopenia, carotid artery stenosis, GERD, and long-term anticoagulation on rivaroxaban who presents with abdominal pain by ambulance. Severe abdominal pain 2/[address] abdomen: Large amount of rectal stool with fecal impaction. Perirectal and presacral stranding suggestive of stercoral colitis. Mild gaseous distention of small and large bowel without transition point. Colonic diverticulosis without evidence of diverticulitis. White blood cell count 13.28 Lactate 2.8 I calcium 0.89 - Dulcolax, defer enemas until electrolytes improved NGT to LIS deferrred due to improvement with disimpaction Patient received Zosyn on admission, continue Unasyn - Manually disimpacted in ER Acute hypoxic respiratory failure on BiPAP 2/2 diaphragmatic compromise from severe stool impaction CTA: Equivocal linear filling defects with segmental left lower lobe arteries likely artifactual, but could also include chronic pulmonary emboli. No consolidation. Minimal groundglass opacities and central lobar nodules appreciated. CXR: Left internal jugular central line projecting into the SVC. No pneumothorax appreciated. VB.3 / Covid negative Management of abdominal infection above BiPAP as needed Pro-Wm negative Electrolyte derangements Potassium 2.8, serum bicarb 26, creatinine 1.12 with creatinine/BUN ratio 24, magnesium 1.5, LDH 277 - Mg 3g IV. - KCl riders x7 - BMP q4h - Phos pending, replete as needed - NPO plus meds Troponin Elevation Initial EKG poor quality with artifact, concern for potential nonspecific ST changes. Repeat EKG with with potential 1 mm depression in V4/V5. Anticoagulated. Trop as below and follow clinically. - No chest pain at time of assessment. - Trend trops - WIL pending - No hx of reduced EF/HF, but follow repletion volumes above Chronic back pain Tylenol as needed, K pad as needed DVT prophylaxis: on DOAC Disposition: PCU CODE STATUS: Full. Diet: N.p.o. meds NSS+KCl @ 100cc/hr (2) Anticoagulant long-term use: (3) Carotid artery stenosis: (4) GERD (gastroesophageal reflux disease): (5) Patent foramen ovale: (6) Osteopenia: (7) Vitamin D deficiency: (8) Arthritis: (9) CVA (cerebral infarction): (10) Hypertension: History of Present Illness Chief Complaint: Abdominal pain Primary Care Provider: Estuardo Young MD Katherine is an 85-year-old female with a past medical history of CVA, hypertension, osteopenia, carotid artery stenosis, GERD, and long-term anticoagulation on rivaroxaban who presents with abdominal pain by ambulance. She was seen at the bedside with her daughter. Her daughter reports that she has had about 1 month of worsening abdominal pain and weakness. They report that she has had minimal bowel movements with sometimes just a smear in her depends. She has not had any chest pain, but has had steady slowly increasing shortness of breath. He has felt globally weaker and has had difficulty ambulating in the last month. No slurred speech, no facial asymmetry, she has chronic left upper and lower extremity asymmetric weakness compared to the right. No sudden increase in focal neurologic deficits, but seem to be globally weak. Patient denies vomiting, but endorses decreased appetite and nausea. Endorses abdominal distention. Denies fever/chills/sweats/palpitations. Denies headache. Endorses chronic left lower extremity and minimal right lower extremity swelling. History of PFO, no history of heart failure. On admission to the ER CT shows profound distention with high stool burden with upward pressure causing diaphragmatic compromise. She was manually disimpacted in the emergency department. No nausea/vomiting/emesis following manual disimpaction. Medical History: Reviewed Surgical History: Reviewed Family History: Reviewed Allergies: No known drug allergies Social History: Lives in an in-law suite at her son's who is working from home. No sick contacts at home. Denies alcohol, tobacco, and recreational drug use. CODE STATUS: Full code, discussed at bedside with patient and patient's daughter. Allergies Allergy/AdvReac Type Severity Reaction Status Date / Time sulfamethoxazole Allergy Mild MOUTH SORES Verified 08/13/20 20:07 trimethoprim Allergy Mild MOUTH SORES Verified 08/13/20 20:07 morphine AdvReac Intermediate HEART Verified 08/13/20 20:07 PALPITATIONS,CHEST TIGHTNESS,VOMITING Opioid Analgesics AdvReac Intermediate HEART Uncoded 08/13/20 20:07 PALPITATIONS, CHEST TIGHTNESS, VOMITING Home Medications Medication Instructions Recorded Confirmed Type acetaminophen 500 mg tablet 1,000 mg PO DAILY tab 03/13/19 08/13/20 History cholecalciferol (vitamin D3) 25 1,000 units PO DAILY 03/20/19 08/13/20 History mcg (1,000 unit) capsule folic acid 1 mg tablet 1 mg PO DAILY #90 tab 08/28/19 08/13/20 Rx rivaroxaban 15 mg tablet 15 mg PO QPM #90 tab 10/17/19 08/13/20 Rx omeprazole 20 mg capsule,delayed 20 mg PO BID #180 cap 01/16/20 08/13/20 Rx release losartan 50 mg tablet 50 mg PO DAILY #90 tab 06/03/20 08/13/20 Rx diclofenac sodium 1 % topical gel 4 g TOPICAL QID #100 g 06/23/20 08/13/20 Rx multivitamin 1 tab PO DAILY 06/30/20 08/13/20 History Past Med/Surg History Medical History Depression History of arterial thrombosis History of Clostridium difficile colitis MRSA (methicillin resistant Staphylococcus aureus) Rheumatic fever Spinal stenosis Tubular adenoma of colon Social History Smoking Status: Never smoker Hx Alcohol Use: No Hx Substance Use: No Preferred Language: [place] marital status: Current Living Situation: Family current occupational status: retired Feels Safe at Home: Yes Dental Care, Regularly: No Physical Activity Frequency: Does not Exercise Seatbelt Use: always Sunscreen Use: No Review of Systems Review of Systems: All systems reviewed & are unremarkable except as noted in HPI & below Physical Exam Physical Exam: General:Frail, thin appearing elderly female. HEENT: Atraumatic, normocephalic. Pulm: Diminished. Symmetrical chest rise. No increase work of breathing. No respiratory distress. Cardiac: RRR, -mrg. Radial pulses intact and symmetrical. Abdominal: Softly distended, diffuse mild TTP. CRANIAL NERVES: II: Pupils equal and reactive, no relative afferent pupillary defect, no VF cuts III, IV, : EOM intact, no gaze preference or deviation, no nystagmus. V: normal sensation in V1, V2, and V3 segments bilaterally VII: no asymmetry, no nasolabial fold flattening VIII: normal hearing to speech XII: midline tongue protrusion MOTOR: RUE: 4+/5 Shoulder internal rotation, external rotation, abduction, adduction 4+/5 wrist flexion/extension 5/5 plant safety leader strength, finger flexion/extension, interosseus LUE: 2/5 Shoulder internal rotation, external rotation, flexion, extension, abduction, adduction 3/5 wrist flexion/extension 3/5 plant safety leader strength, finger flexion/extension, interosseus RLE: 4+/5 to hip flexion, ankle dorsiflexion/plantarflexion LLE: 3/5 to hip flexion, ankle dorsiflexion/plantarflexion SENSORY: Normal to touch, pinprick, vibration, temp in upper and lower extremities with slight decrease on LLE compared to RLE otherwise without asymmetry. Results & Data Results & Data ([facility]) Vital Signs (Past 12 Hours) Vital Signs Temp Pulse Pulse Resp BP BP Pulse Ox 08/13/20 20:58 37.0 C 120 H 30 H 92/62 L 88 L 08/13/20 20:21 113 H 22 100/68 90 08/13/20 19:57 100 H 22 94 08/13/20 19:52 103 H 22 134/59 L 79 L Laboratory Results Lab Results 08/13/20 08/13/20 08/13/20 Range/Units 19:49 19:49 20:19 WBC (4.8-10.8) K/uL RBC (4.2-5.4) M/uL Hgb (12.0-16.0) g/dL POC Hgb 12.9 (12.0-16.0) g/dl Hct (37-47) % POC Hct 38 (37-47) % MCV (80-100) fL MCH (25-34) pg MCHC (32-36) g/dL RDW Std Deviation (36.4-46.3) fL RDW Coeff of Steve (11.5-14.5) % Plt Count (130-400) K/uL MPV (7.4-10.4) fL Immature Gran % (Auto) % Neut % (Auto) % Lymph % (Auto) % [place] % (Auto) % Eos % (Auto) % Baso % (Auto) % Neut # (Auto) (1.4-6.5) K/uL Lymph # (Auto) (1.2-3.4) K/uL [place] # (Auto) (0.11-0.59) K/uL Eos # (Auto) (0-0.5) K/uL Baso # (Auto) (0-0.2) K/uL Immature Gran # (Auto) (0.00-0.02) K/uL ESR (0-21) mm/hr PT (9.0-12.0) Seconds INR (0.9-1.1) APTT (21.0-31.0) Seconds PTT Ratio VBG pH (7.36-7.41) VBG pCO2 (38-50) mmHg VBG pO2 mmHg VBG HCO3 mmol/L VBG O2 Saturation % VBG Base Excess mEq/L Barometric Pressure mm/Hg POC Sodium 138 (135-144) mmol/L Sodium (136-145) mmol/L POC Potassium 2.7 L (3.3-5.0) mmol/L Potassium (3.5-5.1) mmol/L POC Chloride 106 (101-112) mmol/L Chloride (98-107) mmol/L Carbon Dioxide (21-32) mmol/L POC Total CO2 20 L (24-31) mmol/L Anion Gap (3-11) POC Anion Gap 15.0 L (16-25) mmol/L POC BUN 28 H (7-18) mg/dl BUN (7-18) mg/dl Creatinine (0.6-1.2) mg/dl POC Creatinine 0.8 (0.6-1.3) mg/dl Est Cr Clr Drug Dosing Est GFR ( Amer) Est GFR (Non-Af Amer) BUN/Creatinine Ratio (10-20) Glucose (70-99) mg/dl POC Glucose (other) 121 H (70-99) mg/dl Lactate (0.4-2.0) mmol/L Calcium (8.5-10.1) mg/dl POC Ioniz Calcium Kd 0.89 L (1.12-1.32) mmol/l Magnesium (1.8-2.4) mg/dl Ferritin (8-388) ng/ml Total Bilirubin (0.2-1) mg/dl AST (15-37) U/L ALT (12-78) U/L Alkaline Phosphatase (45-117) U/L Lactate Dehydrogenase (84-246) U/L Total Creatine Kinase (26-192) U/L CK-MB (CK-2) (0.5-3.6) ng/ml CK/CKMB % Calc (0-3.0) Troponin I (0-0.045) ng/ml C-Reactive Protein (0-0.29) mg/dl Total Protein (6.4-8.2) gm/dl Albumin (3.4-5.0) gm/dl Globulin (2.5-4.0) gm/dl Albumin/Globulin Ratio (0.9-2) Procalcitonin (0-0.5) ng/ml Random Cortisol mcg/dl Urine Color Urine Appearance (Clear) Urine pH (4.5-7.5) Ur Specific [place] (1.000-1.030) Urine Protein (Negative) Urine Glucose (UA) (Negative) Urine Ketones (Negative) Urine Blood (Negative) Urine Nitrite (Negative) Urine Bilirubin (Negative) Urine Urobilinogen (Negative) Ur Leukocyte Esterase (Negative) Urine RBC (0-4) /hpf Urine WBC (0-5) /hpf Ur Epithelial Cells (0-5) /lpf Ur Renal Epithelial Cell (0-5) /lpf Amorphous Sediment (None Prsent) Urine Bacteria (Negative) Hyaline Casts (0-5) /lpf Urine Mucus (None Prsent) COVID-19 Eval Order CovFluRsv at [facility] SARS-CoV-2 (PCR) NEGATIVE (Negative) Influenza Type A (PCR) Negative (Neg) Influenza Type B (PCR) Negative (Neg) RSV (RT-PCR) Negative (Neg) Blood Type Antibody Screen 08/13/20 08/13/20 08/13/20 Range/Units 20:39 20:39 20:39 WBC 13.28 H (4.8-10.8) K/uL RBC 4.34 (4.2-5.4) M/uL Hgb 14.9 (12.0-16.0) g/dL POC Hgb (12.0-16.0) g/dl Hct 43.9 (37-47) % POC Hct (37-47) % MCV 101.2 H (80-100) fL MCH 34.3 H (25-34) pg MCHC 33.9 (32-36) g/dL RDW Std Deviation 62.5 H (36.4-46.3) fL RDW Coeff of Steve 16.9 H (11.5-14.5) % Plt Count 295 (130-400) K/uL MPV 9.9 (7.4-10.4) fL Immature Gran % (Auto) 0.5 % Neut % (Auto) 72.9 % Lymph % (Auto) 19.4 % [place] % (Auto) 6.9 % Eos % (Auto) 0.1 % Baso % (Auto) 0.2 % Neut # (Auto) 9.69 H (1.4-6.5) K/uL Lymph # (Auto) 2.57 (1.2-3.4) K/uL [place] # (Auto) 0.92 H (0.11-0.59) K/uL Eos # (Auto) 0.01 (0-0.5) K/uL Baso # (Auto) 0.02 (0-0.2) K/uL Immature Gran # (Auto) 0.07 H (0.00-0.02) K/uL ESR 9 (0-21) mm/hr PT 14.7 H (9.0-12.0) Seconds INR 1.4 H (0.9-1.1) APTT 32.5 H (21.0-31.0) Seconds PTT Ratio 1.2 VBG pH (7.36-7.41) VBG pCO2 (38-50) mmHg VBG pO2 mmHg VBG HCO3 mmol/L VBG O2 Saturation % VBG Base Excess mEq/L Barometric Pressure mm/Hg POC Sodium (135-144) mmol/L Sodium (136-145) mmol/L POC Potassium (3.3-5.0) mmol/L Potassium (3.5-5.1) mmol/L POC Chloride (101-112) mmol/L Chloride (98-107) mmol/L Carbon Dioxide (21-32) mmol/L POC Total CO2 (24-31) mmol/L Anion Gap (3-11) POC Anion Gap (16-25) mmol/L POC BUN (7-18) mg/dl BUN (7-18) mg/dl Creatinine (0.6-1.2) mg/dl POC Creatinine (0.6-1.3) mg/dl Est Cr Clr Drug Dosing Est GFR ( Amer) Est GFR (Non-Af Amer) BUN/Creatinine Ratio (10-20) Glucose (70-99) mg/dl POC Glucose (other) (70-99) mg/dl Lactate (0.4-2.0) mmol/L Calcium (8.5-10.1) mg/dl POC Ioniz Calcium Kd (1.12-1.32) mmol/l Magnesium (1.8-2.4) mg/dl Ferritin (8-388) ng/ml Total Bilirubin (0.2-1) mg/dl AST (15-37) U/L ALT (12-78) U/L Alkaline Phosphatase (45-117) U/L Lactate Dehydrogenase (84-246) U/L Total Creatine Kinase (26-192) U/L CK-MB (CK-2) (0.5-3.6) ng/ml CK/CKMB % Calc (0-3.0) Troponin I (0-0.045) ng/ml C-Reactive Protein (0-0.29) mg/dl Total Protein (6.4-8.2) gm/dl Albumin (3.4-5.0) gm/dl Globulin (2.5-4.0) gm/dl Albumin/Globulin Ratio (0.9-2) Procalcitonin (0-0.5) ng/ml Random Cortisol mcg/dl Urine Color Urine Appearance (Clear) Urine pH (4.5-7.5) Ur Specific [place] (1.000-1.030) Urine Protein (Negative) Urine Glucose (UA) (Negative) Urine Ketones (Negative) Urine Blood (Negative) Urine Nitrite (Negative) Urine Bilirubin (Negative) Urine Urobilinogen (Negative) Ur Leukocyte Esterase (Negative) Urine RBC (0-4) /hpf Urine WBC (0-5) /hpf Ur Epithelial Cells (0-5) /lpf Ur Renal Epithelial Cell (0-5) /lpf Amorphous Sediment (None Prsent) Urine Bacteria (Negative) Hyaline Casts (0-5) /lpf Urine Mucus (None Prsent) COVID-19 Eval Order SARS-CoV-2 (PCR) (Negative) Influenza Type A (PCR) (Neg) Influenza Type B (PCR) (Neg) RSV (RT-PCR) (Neg) Blood Type Antibody Screen 08/13/20 08/13/20 08/13/20 Range/Units 20:39 20:39 20:39 WBC (4.8-10.8) K/uL RBC (4.2-5.4) M/uL Hgb (12.0-16.0) g/dL POC Hgb (12.0-16.0) g/dl Hct (37-47) % POC Hct (37-47) % MCV (80-100) fL MCH (25-34) pg MCHC (32-36) g/dL RDW Std Deviation (36.4-46.3) fL RDW Coeff of Steve (11.5-14.5) % Plt Count (130-400) K/uL MPV (7.4-10.4) fL Immature Gran % (Auto) % Neut % (Auto) % Lymph % (Auto) % [place] % (Auto) % Eos % (Auto) % Baso % (Auto) % Neut # (Auto) (1.4-6.5) K/uL Lymph # (Auto) (1.2-3.4) K/uL [place] # (Auto) (0.11-0.59) K/uL Eos # (Auto) (0-0.5) K/uL Baso # (Auto) (0-0.2) K/uL Immature Gran # (Auto) (0.00-0.02) K/uL ESR (0-21) mm/hr PT (9.0-12.0) Seconds INR (0.9-1.1) APTT (21.0-31.0) Seconds PTT Ratio VBG pH (7.36-7.41) VBG pCO2 (38-50) mmHg VBG pO2 mmHg VBG HCO3 mmol/L VBG O2 Saturation % VBG Base Excess mEq/L Barometric Pressure mm/Hg POC Sodium (135-144) mmol/L Sodium 138 (136-145) mmol/L POC Potassium (3.3-5.0) mmol/L Potassium 2.8 L (3.5-5.1) mmol/L POC Chloride (101-112) mmol/L Chloride 102 (98-107) mmol/L Carbon Dioxide 26 (21-32) mmol/L POC Total CO2 (24-31) mmol/L Anion Gap 10.0 (3-11) POC Anion Gap (16-25) mmol/L POC BUN (7-18) mg/dl BUN 28 H (7-18) mg/dl Creatinine 1.12 (0.6-1.2) mg/dl POC Creatinine (0.6-1.3) mg/dl Est Cr Clr Drug Dosing Not Reportable Est GFR ( Amer) 51.9 Est GFR (Non-Af Amer) 44.8 BUN/Creatinine Ratio 24.7 H (10-20) Glucose 114 H (70-99) mg/dl POC Glucose (other) (70-99) mg/dl Lactate 2.8 H* (0.4-2.0) mmol/L Calcium 9.0 (8.5-10.1) mg/dl POC Ioniz Calcium Kd (1.12-1.32) mmol/l Magnesium 1.5 L (1.8-2.4) mg/dl Ferritin 551.4 H (8-388) ng/ml Total Bilirubin 1.1 H (0.2-1) mg/dl AST 33 (15-37) U/L ALT 20 (12-78) U/L Alkaline Phosphatase 95 (45-117) U/L Lactate Dehydrogenase 277 H (84-246) U/L Total Creatine Kinase 74 (26-192) U/L CK-MB (CK-2) 4.1 H (0.5-3.6) ng/ml CK/CKMB % Calc 5.5 H (0-3.0) Troponin I 0.098 H* (0-0.045) ng/ml C-Reactive Protein 1.10 H (0-0.29) mg/dl Total Protein 5.9 L (6.4-8.2) gm/dl Albumin 2.6 L (3.4-5.0) gm/dl Globulin 3.3 (2.5-4.0) gm/dl Albumin/Globulin Ratio 0.8 L (0.9-2) Procalcitonin (0-0.5) ng/ml Random Cortisol mcg/dl Urine Color Urine Appearance (Clear) Urine pH (4.5-7.5) Ur Specific [place] (1.000-1.030) Urine Protein (Negative) Urine Glucose (UA) (Negative) Urine Ketones (Negative) Urine Blood (Negative) Urine Nitrite (Negative) Urine Bilirubin (Negative) Urine Urobilinogen (Negative) Ur Leukocyte Esterase (Negative) Urine RBC (0-4) /hpf Urine WBC (0-5) /hpf Ur Epithelial Cells (0-5) /lpf Ur Renal Epithelial Cell (0-5) /lpf Amorphous Sediment (None Prsent) Urine Bacteria (Negative) Hyaline Casts (0-5) /lpf Urine Mucus (None Prsent) COVID-19 Eval Order SARS-CoV-2 (PCR) (Negative) Influenza Type A (PCR) (Neg) Influenza Type B (PCR) (Neg) RSV (RT-PCR) (Neg) Blood Type Antibody Screen 08/13/20 08/13/20 08/13/20 Range/Units 20:39 20:39 20:39 WBC (4.8-10.8) K/uL RBC (4.2-5.4) M/uL Hgb (12.0-16.0) g/dL POC Hgb (12.0-16.0) g/dl Hct (37-47) % POC Hct (37-47) % MCV (80-100) fL MCH (25-34) pg MCHC (32-36) g/dL RDW Std Deviation (36.4-46.3) fL RDW Coeff of Steve (11.5-14.5) % Plt Count (130-400) K/uL MPV (7.4-10.4) fL Immature Gran % (Auto) % Neut % (Auto) % Lymph % (Auto) % [place] % (Auto) % Eos % (Auto) % Baso % (Auto) % Neut # (Auto) (1.4-6.5) K/uL Lymph # (Auto) (1.2-3.4) K/uL [place] # (Auto) (0.11-0.59) K/uL Eos # (Auto) (0-0.5) K/uL Baso # (Auto) (0-0.2) K/uL Immature Gran # (Auto) (0.00-0.02) K/uL ESR (0-21) mm/hr PT (9.0-12.0) Seconds INR (0.9-1.1) APTT (21.0-31.0) Seconds PTT Ratio VBG pH 7.37 (7.36-7.41) VBG pCO2 38 (38-50) mmHg VBG pO2 25 mmHg VBG HCO3 22 mmol/L VBG O2 Saturation < 60.0 % VBG Base Excess -3.1 mEq/L Barometric Pressure 729.7 mm/Hg POC Sodium (135-144) mmol/L Sodium (136-145) mmol/L POC Potassium (3.3-5.0) mmol/L Potassium (3.5-5.1) mmol/L POC Chloride (101-112) mmol/L Chloride (98-107) mmol/L Carbon Dioxide (21-32) mmol/L POC Total CO2 (24-31) mmol/L Anion Gap (3-11) POC Anion Gap (16-25) mmol/L POC BUN (7-18) mg/dl BUN (7-18) mg/dl Creatinine (0.6-1.2) mg/dl POC Creatinine (0.6-1.3) mg/dl Est Cr Clr Drug Dosing Est GFR ( Amer) Est GFR (Non-Af Amer) BUN/Creatinine Ratio (10-20) Glucose (70-99) mg/dl POC Glucose (other) (70-99) mg/dl Lactate (0.4-2.0) mmol/L Calcium (8.5-10.1) mg/dl POC Ioniz Calcium Kd (1.12-1.32) mmol/l Magnesium (1.8-2.4) mg/dl Ferritin (8-388) ng/ml Total Bilirubin (0.2-1) mg/dl AST (15-37) U/L ALT (12-78) U/L Alkaline Phosphatase (45-117) U/L Lactate Dehydrogenase (84-246) U/L Total Creatine Kinase Cancelled (26-192) U/L CK-MB (CK-2) Cancelled (0.5-3.6) ng/ml CK/CKMB % Calc Cancelled (0-3.0) Troponin I (0-0.045) ng/ml C-Reactive Protein (0-0.29) mg/dl Total Protein (6.4-8.2) gm/dl Albumin (3.4-5.0) gm/dl Globulin (2.5-4.0) gm/dl Albumin/Globulin Ratio (0.9-2) Procalcitonin 0.08 (0-0.5) ng/ml Random Cortisol mcg/dl Urine Color Urine Appearance (Clear) Urine pH (4.5-7.5) Ur Specific [place] (1.000-1.030) Urine Protein (Negative) Urine Glucose (UA) (Negative) Urine Ketones (Negative) Urine Blood (Negative) Urine Nitrite (Negative) Urine Bilirubin (Negative) Urine Urobilinogen (Negative) Ur Leukocyte Esterase (Negative) Urine RBC (0-4) /hpf Urine WBC (0-5) /hpf Ur Epithelial Cells (0-5) /lpf Ur Renal Epithelial Cell (0-5) /lpf Amorphous Sediment (None Prsent) Urine Bacteria (Negative) Hyaline Casts (0-5) /lpf Urine Mucus (None Prsent) COVID-19 Eval Order SARS-CoV-2 (PCR) (Negative) Influenza Type A (PCR) (Neg) Influenza Type B (PCR) (Neg) RSV (RT-PCR) (Neg) Blood Type Antibody Screen 08/13/20 08/13/20 08/13/20 Range/Units 20:39 20:39 21:24 WBC (4.8-10.8) K/uL RBC (4.2-5.4) M/uL Hgb (12.0-16.0) g/dL POC Hgb (12.0-16.0) g/dl Hct (37-47) % POC Hct (37-47) % MCV (80-100) fL MCH (25-34) pg MCHC (32-36) g/dL RDW Std Deviation (36.4-46.3) fL RDW Coeff of Steve (11.5-14.5) % Plt Count (130-400) K/uL MPV (7.4-10.4) fL Immature Gran % (Auto) % Neut % (Auto) % Lymph % (Auto) % [place] % (Auto) % Eos % (Auto) % Baso % (Auto) % Neut # (Auto) (1.4-6.5) K/uL Lymph # (Auto) (1.2-3.4) K/uL [place] # (Auto) (0.11-0.59) K/uL Eos # (Auto) (0-0.5) K/uL Baso # (Auto) (0-0.2) K/uL Immature Gran # (Auto) (0.00-0.02) K/uL ESR (0-21) mm/hr PT (9.0-12.0) Seconds INR (0.9-1.1) APTT (21.0-31.0) Seconds PTT Ratio VBG pH (7.36-7.41) VBG pCO2 (38-50) mmHg VBG pO2 mmHg VBG HCO3 mmol/L VBG O2 Saturation % VBG Base Excess mEq/L Barometric Pressure mm/Hg POC Sodium (135-144) mmol/L Sodium (136-145) mmol/L POC Potassium (3.3-5.0) mmol/L Potassium (3.5-5.1) mmol/L POC Chloride (101-112) mmol/L Chloride (98-107) mmol/L Carbon Dioxide (21-32) mmol/L POC Total CO2 (24-31) mmol/L Anion Gap (3-11) POC Anion Gap (16-25) mmol/L POC BUN (7-18) mg/dl BUN (7-18) mg/dl Creatinine (0.6-1.2) mg/dl POC Creatinine (0.6-1.3) mg/dl Est Cr Clr Drug Dosing Est GFR ( Amer) Est GFR (Non-Af Amer) BUN/Creatinine Ratio (10-20) Glucose (70-99) mg/dl POC Glucose (other) (70-99) mg/dl Lactate (0.4-2.0) mmol/L Calcium (8.5-10.1) mg/dl POC Ioniz Calcium Dk (1.12-1.32) mmol/l Magnesium (1.8-2.4) mg/dl Ferritin (8-388) ng/ml Total Bilirubin (0.2-1) mg/dl AST (15-37) U/L ALT (12-78) U/L Alkaline Phosphatase (45-117) U/L Lactate Dehydrogenase (84-246) U/L Total Creatine Kinase (26-192) U/L CK-MB (CK-2) (0.5-3.6) ng/ml CK/CKMB % Calc (0-3.0) Troponin I (0-0.045) ng/ml C-Reactive Protein (0-0.29) mg/dl Total Protein (6.4-8.2) gm/dl Albumin (3.4-5.0) gm/dl Globulin (2.5-4.0) gm/dl Albumin/Globulin Ratio (0.9-2) Procalcitonin (0-0.5) ng/ml Random Cortisol 45.69 mcg/dl Urine Color [place] Urine Appearance Cloudy A (Clear) Urine pH 6.5 (4.5-7.5) Ur Specific [place] 1.010 (1.000-1.030) Urine Protein 2+ H (Negative) Urine Glucose (UA) Negative (Negative) Urine Ketones Trace H (Negative) Urine Blood 2+ H (Negative) Urine Nitrite Negative (Negative) Urine Bilirubin 2+ H (Negative) Urine Urobilinogen Positive H (Negative) Ur Leukocyte Esterase 2+ H (Negative) Urine RBC 10-30 H (0-4) /hpf Urine WBC >30 H (0-5) /hpf Ur Epithelial Cells >30 H (0-5) /lpf Ur Renal Epithelial Cell 5-10 H (0-5) /lpf Amorphous Sediment Present A (None Prsent) Urine Bacteria 2+ H (Negative) Hyaline Casts 10-30 H (0-5) /lpf Urine Mucus Present A (None Prsent) COVID-19 Eval Order SARS-CoV-2 (PCR) (Negative) Influenza Type A (PCR) (Neg) Influenza Type B (PCR) (Neg) RSV (RT-PCR) (Neg) Blood Type O Positive Antibody Screen NEGATIVE 08/13/20 Range/Units 22:29 WBC (4.8-10.8) K/uL RBC (4.2-5.4) M/uL Hgb (12.0-16.0) g/dL POC Hgb (12.0-16.0) g/dl Hct (37-47) % POC Hct (37-47) % MCV (80-100) fL MCH (25-34) pg MCHC (32-36) g/dL RDW Std Deviation (36.4-46.3) fL RDW Coeff of Steve (11.5-14.5) % Plt Count (130-400) K/uL MPV (7.4-10.4) fL Immature Gran % (Auto) % Neut % (Auto) % Lymph % (Auto) % [place] % (Auto) % Eos % (Auto) % Baso % (Auto) % Neut # (Auto) (1.4-6.5) K/uL Lymph # (Auto) (1.2-3.4) K/uL [place] # (Auto) (0.11-0.59) K/uL Eos # (Auto) (0-0.5) K/uL Baso # (Auto) (0-0.2) K/uL Immature Gran # (Auto) (0.00-0.02) K/uL ESR (0-21) mm/hr PT (9.0-12.0) Seconds INR (0.9-1.1) APTT (21.0-31.0) Seconds PTT Ratio VBG pH (7.36-7.41) VBG pCO2 (38-50) mmHg VBG pO2 mmHg VBG HCO3 mmol/L VBG O2 Saturation % VBG Base Excess mEq/L Barometric Pressure mm/Hg POC Sodium (135-144) mmol/L Sodium (136-145) mmol/L POC Potassium (3.3-5.0) mmol/L Potassium (3.5-5.1) mmol/L POC Chloride (101-112) mmol/L Chloride (98-107) mmol/L Carbon Dioxide (21-32) mmol/L POC Total CO2 (24-31) mmol/L Anion Gap (3-11) POC Anion Gap (16-25) mmol/L POC BUN (7-18) mg/dl BUN (7-18) mg/dl Creatinine (0.6-1.2) mg/dl POC Creatinine (0.6-1.3) mg/dl Est Cr Clr Drug Dosing Est GFR ( Amer) Est GFR (Non-Af Amer) BUN/Creatinine Ratio (10-20) Glucose (70-99) mg/dl POC Glucose (other) (70-99) mg/dl Lactate 3.2 H* (0.4-2.0) mmol/L Calcium (8.5-10.1) mg/dl POC Ioniz Calcium Kd (1.12-1.32) mmol/l Magnesium (1.8-2.4) mg/dl Ferritin (8-388) ng/ml Total Bilirubin (0.2-1) mg/dl AST (15-37) U/L ALT (12-78) U/L Alkaline Phosphatase (45-117) U/L Lactate Dehydrogenase (84-246) U/L Total Creatine Kinase (26-192) U/L CK-MB (CK-2) (0.5-3.6) ng/ml CK/CKMB % Calc (0-3.0) Troponin I (0-0.045) ng/ml C-Reactive Protein (0-0.29) mg/dl Total Protein (6.4-8.2) gm/dl Albumin (3.4-5.0) gm/dl Globulin (2.5-4.0) gm/dl Albumin/Globulin Ratio (0.9-2) Procalcitonin (0-0.5) ng/ml Random Cortisol mcg/dl Urine Color Urine Appearance (Clear) Urine pH (4.5-7.5) Ur Specific [place] (1.000-1.030) Urine Protein (Negative) Urine Glucose (UA) (Negative) Urine Ketones (Negative) Urine Blood (Negative) Urine Nitrite (Negative) Urine Bilirubin (Negative) Urine Urobilinogen (Negative) Ur Leukocyte Esterase (Negative) Urine RBC (0-4) /hpf Urine WBC (0-5) /hpf Ur Epithelial Cells (0-5) /lpf Ur Renal Epithelial Cell (0-5) /lpf Amorphous Sediment (None Prsent) Urine Bacteria (Negative) Hyaline Casts (0-5) /lpf Urine Mucus (None Prsent) COVID-19 Eval Order SARS-CoV-2 (PCR) (Negative) Influenza Type A (PCR) (Neg) Influenza Type B (PCR) (Neg) RSV (RT-PCR) (Neg) Blood Type Antibody Screen Diagnostic Findings CT OF THE ABDOMEN AND PELVIS WITH CONTRAST CLINICAL HISTORY: Severe abdominal pain. COMPARISON STUDY: CT of the abdomen and pelvis and pelvic ultrasound November 02, 2010. TECHNIQUE: Following IV administration of 119 mL of Optiray-320, axial images of the abdomen and pelvis were obtained from the lung bases to the proximal femurs. Images were reviewed in the axial, sagittal, and coronal planes. IV contrast was administered without complication. Automated exposure control was utilized for the study. A dose lowering technique was utilized adhering to the principles of ALARA. CT DOSE: 791.18 mGy.cm FINDINGS: Exam is mildly compromised by motion artifact as well as streak artifact from bilateral hip arthroplasties. No pneumatosis, free air or portal venous gas is present. There are calcified granulomas within the spleen and liver. There is no significant biliary ductal dilatation status post cholecystectomy. The adrenal glands, kidneys and pancreas are unremarkable. There is a probable 2 mm right renal calculus. There is no hydronephrosis. No peripancreatic infiltration is present. There is no pancreatic ductal dilatation. A large amount of stool within the rectum is noted. There is mild perirectal/presacral stranding. There is no fluid collection. There is no extraluminal gas. Colonic diverticulosis is noted without evidence for acute diverticulitis. There is mild gaseous distention of small and large bowel. No transition point is identified. Postoperative findings within the right colon are noted. There is no lymphadenopathy. No acute fracture or suspicious lesion is identified within the visualized skeletal structures. Major vasculature is patent. Tortuosity of the abdominal aorta is noted. IMPRESSION: 1. Large amount of stool within the rectum consistent with fecal impaction. Mild perirectal/presacral stranding may reflect stercoral colitis. Mild gaseous distention of small and large bowel which may be related to the stool within the rectum or represent an ileus. No transition point identified. 2. Exam mildly compromised by motion artifact and artifact from bilateral hip arthroplasties. 3. Colonic diverticulosis without evidence for acute diverticulitis. ACT 112: Negative or not required by law. Electronically signed by: Rufino Graves M.D. 08/13/2020 8:19 PM Dictated: 08/13/202000Transcribed: 08/13/202000 CT ANGIOGRAPHY OF THE CHEST, PULMONARY EMBOLUS PROTOCOL CLINICAL HISTORY: Shortness of breath. Evaluate for pulmonary embolus. COMPARISON STUDY: Chest radiograph April 15, 2015. TECHNIQUE: Following IV administration of 119 mL of Optiray-320, helical axial images of the chest were obtained utilizing the pulmonary embolus protocol. Maximal intensity projections and sagittal and coronal reformats were viewed on an independent 3D workstation. IV contrast was administered without complication. Automated exposure control was utilized for the study. A dose lowering technique was utilized adhering to the principles of ALARA. FINDINGS: This exam is moderately compromised by respiratory motion artifact. No definite pulmonary embolus is identified. Apparent linear filling defects within several segmental left lower lobe branches are probably artifactual. No pericardial effusion is noted. No pneumothorax or pleural effusion is noted. Lungs are suboptimally assessed given respiratory motion. There are mild groundglass opacities and tiny centrilobular nodules within the lungs. A few subpleural right lung nodules likely reflect scarring or atelectasis. No acute fracture or suspicious lesion is noted within the bony thorax. The abdomen and pelvis will be reported separately. IMPRESSION: 1. Exam moderately compromised by respiratory motion artifact. No definite pulmonary emboli. Equivocal linear filling defects within several segmental left lower lobe pulmonary arteries are likely artifactual. Chronic pulmonary emboli could appear similar but are considered less likely. 2. No consolidation. Minimal groundglass opacities and centrilobular nodules within the lungs. ACT 112: Negative or not required by law. Electronically signed by: Rufino Graves M.D. 08/13/2020 8:09 PM Dictated: 08/13/202000Transcribed: 08/13/202000 XR chest 1V portable CLINICAL HISTORY: cvc placement COMPARISON STUDY: Chest CT performed earlier today. FINDINGS: Tip of the left internal jugular central line projects in the SVC. Skin folds project over the chest. There is no pneumothorax or pleural effusion. Calcified granuloma within the left lower lobe is noted. There is a calcified right hilar node. Cardiac size is normal. There is no consolidation. There is no evidence for pulmonary edema. Mild gaseous distention of several bowel loops within the upper abdomen is better depicted on the abdominal CT. IMPRESSION: No pneumothorax placement of a left internal jugular central line. ACT 112: Negative or not required by law. Electronically signed by: Rufino Graves M.D. 08/13/2020 8:58 PM Dictated: 08/13/202052Transcribed: 08/13/202052 ECG Additional Comments: EKG wtih NSR at 76, HG=324, QRS=82, HGk=204, low voltage QRS, ST depressed in V4-V6, flattening in III, aVF Supervising Physician Co-Signing Physician Notes Patient seen and examined, chart reviewed, case discussed with Dr. Mendoza and I agree with his assessment and plan as documented above. Briefly, patient is an 85yo C female with prior history of CVA with residual left sided deficit presenting with progressive abdominal pain. Found to have fecal impaction, evidence of stercoral colitis on imaging. On arrival to the ER she was ill in appearance - afebrile, tachycardic, hypotensive and hypoxic to 88% on RA. She had a left IJ CVC placed by ER attending and was briefly placed on BiPAP for hypoxic respiratory failure. She was manually disimpacted by ER staff. Presently she is complaining of rectal pain. Denies CP. On exam she is frail, elderly female resting comfortably in bed Skin - thin, no rash HEENT - NC/AT, PERRL, slightly dry mucus membranes, neck supple, Left IJ with slight oozing Heart - +S1/S2, regular, no m/r/g Lungs - CTA Abd - diminished bowel sounds, soft, diffusely tender without rebound/guarding/peritoneal signs Ext - edema LLE Labs and images reviewed. Significant for leukocytosis with WBC=13.28, elevated MCV of 101, INR of 1.4, K=2.8, BUN=28, Mg=1.5, Lactate=3.2 Assessment/Plan - -Supportive care - IVF, electrolyte repletion, antibiotics with Unasyn for GN/An aerobic coverage -Bowel regimen -Trend troponin, Echo in AM -Remainder of plan as above Resident Activity Tracking Resident Involvement: Resident Care Provided Care Provided: Adult Hospital Medicine
[2020-08-13 21:33] LABS: Appearance Urine Cloudy (Clear); Bilirubin Urine 2+ (Negative); Blood Urine 2+ (Negative); Color Urine Amber; Glucose Urine UA Negative (Negative); Ketones Urine Trace (Negative); Leukocyte Esterase Urine 2+ (Negative); Nitrite Urine Negative (Negative); Protein Urine 2+ (Negative); Urobilinogen Urine Positive (Negative); pH Urine 6.5 (4.5-7.5)
[2020-08-13 21:45] LABS: Epithelial Cell Urine >30 /lpf (0-5)
[2020-08-13 21:46] LABS: WBC Urine >30 /hpf (0-5)
[2020-08-13 21:50] LABS: Amorphous Sediment Urine Present (None Prsent); Bacteria Urine 2+ (Negative); Mucus Urine Present (None Prsent)
[2020-08-13] MEDS ORDERED: ONDANSETRON INJ 2 MG/ML 2 ML VIAL ONE (21:51)
[2020-08-13] MEDS ORDERED: MoRPHine SULFATE 2 MG/ML CARP ONE (21:51)
[2020-08-13] MEDS: MoRPHine SULFATE 2 MG/ML CARP IV STA ×2 (21:53→23:17)
[2020-08-14] MEDS ORDERED: HYDROmorphone INJ 0.5 MG/0.5 ML SYR IV PRN ×2 (00:05)
[2020-08-14] MEDS ORDERED: ONDANSETRON INJ 2 MG/ML 2 ML VIAL IV PRN (00:05)
[2020-08-14] MEDS ORDERED: ACETAMINOPHEN 325 MG TAB PO PRN (00:05)
--- NOTE | 2020-08-14 00:06 | Billing Data ---
Date of Service August 13, 2020 Coding Level of Care Code 37333 Initial Inpt Care Lvl 3
[2020-08-14] MEDS ORDERED: RIVAROXABAN 15 MG TAB PO ONE (00:30)
[2020-08-14] MEDS: AMPICILLIN/SULBACTAM SOD 3,000 MG in 0.9 % SODIUM CHLORIDE 100 ML IV SCH ×3 (01:07→12:58)
[2020-08-14] MEDS: MAGNESIUM SULFATE / D5W 1 GM/100 ML BAG IV SCH ×2 (01:07→03:10)
[2020-08-14] MEDS: POTASSIUM CHLORIDE / WTR 10 MEQ/100 ML PLCT IV SCH ×6 (01:07→06:44)
[2020-08-14] MEDS: NSS + 20MEQ KCL 20 MEQ/1,000 ML BAG IV SCH ×3 (01:08→20:13)
[2020-08-14 02:30] LABS: Basophils # (auto) 0.01 K/uL (0-0.2); Basophils % (auto) 0.1 %; Hematocrit (blood only) 39.2 % (37-47); Hemoglobin 13.7 g/dL (12.0-16.0); Immature Granulocytes # (auto) 0.04 K/uL (0.00-0.02); Immature Granulocytes % (auto) 0.3 %; Lymphocytes # (auto) 1.77 K/uL (1.2-3.4); Mean Corpuscular Hemoglobin 34.8 pg (25-34); Mean Corpuscular Hgb Conc 34.9 g/dL (32-36); Mean Corpuscular Volume 99.5 fL (80-100); Mean Platelet Volume 9.8 fL (7.4-10.4); Monocytes # (auto) 0.25 K/uL (0.11-0.59); Neutrophils # (auto) 10.57 K/uL (1.4-6.5); Neutrophils % (auto) 83.6 %; Platelet Count 252 K/uL (130-400); RDW Standard Deviation 61.8 fL (36.4-46.3); Red Blood Count 3.94 M/uL (4.2-5.4); White Blood Count 12.64 K/uL (4.8-10.8)
[2020-08-14 03:01] LABS: Albumin Globulin Ratio 0.8 (0.9-2); Albumin Level 2.3 gm/dl (3.4-5.0); BUN Creatinine Ratio 30.7 (10-20); Bilirubin,Total 0.8 mg/dl (0.2-1); Creatinine Clr Calc Pharmacy 34.6 ml/min; Est GFR (African American) 72.4; Est GFR (Non-African American) 62.5; Globulin 2.8 gm/dl (2.5-4.0); Magnesium 2.4 mg/dl (1.8-2.4); Potassium 3.5 mmol/L (3.5-5.1); Total Protein 5.1 gm/dl (6.4-8.2)
[2020-08-14 03:02] LABS: BUN Creatinine Ratio 33.8 (10-20); Creatinine Clr Calc Pharmacy 36.8 ml/min; Est GFR (African American) 77.9; Est GFR (Non-African American) 67.2; Potassium 3.5 mmol/L (3.5-5.1)
[2020-08-14 03:13] LABS: Phosphorus 2.9 mg/dl (2.5-4.9); Troponin I 0.111 ng/ml (0-0.045)
[2020-08-14 03:28] LABS: Folate (Folic Acid) > 20.00 ng/ml (>5.38); Vitamin B12 716 pg/ml (193-986)
--- NOTE | 2020-08-14 07:47 | Hospitalist Progress Note ---
Date of Service August 14, 2020 Assessment & Plan (1) Abdominal pain: 85 yo F PMHx CVA, HTN, osteopenia, COREY, GERD, and long-term anticoagulation on rivaroxaban who is admitted for stercoral colitis and acute hypoxic respiratory failure. Stercoral colitis causing severe abdominal pain: - On arrival with 1 month worsening abdominal pain and constipation. - Noted on CT abdomen to have significant stool with fecal impaction, as well as perirectal and presacral stranding suggestive of stercoral colitis. - With immediate relief in symptoms following manual disimpaction. - Continue Dulcolax. - Inflammation of colon secondary to stool as compared to infection; will d/c antibiotics. Acute hypoxic respiratory failure on BiPAP 2/2 diaphragmatic compromise from severe stool impaction: - With several weeks of worsening sensation of dyspnea at the same time of her abdominal pain and constipation worsening. - CXR without pneumothorax or pneumonia noted. - CTA Chest with possible chronic pulmonary emboli, but more likely to be artifact. Visualized rise of diaphragm due to abdominal distention. - VB.3 /. - COVID negative, procal negative. - With significant improvement in subjective respiratory comfort following mechanical disimpaction. - Patient has not required BiPAP, and is now on 3LNC saturating well. - Incentive spirometer. Wean oxygen as tolerated, not on oxygen at home. Electrolyte derangements, severe protein calorie malnutrition: - On admission with hypokalemia, magnesium, hypocalcemia. - Potassium and magnesium repleted, with improvement today. - Patient with poor oral intake for about a month as a result of constipation and abdominal pain. - Nutrition consult placed. PT/OT orders placed as well. Troponin Elevation: - Initial EKG poor quality with artifact, concern for potential nonspecific ST changes. Repeat EKG with with potential 1 mm depression in V4/V5. - Troponin peaked at 0.111, no chest pain and patient is comfortable. - WIL poor study, unable to evaluate for wall motion abnormalities. Abnormal UA/Probable UTI: - With lot of epithelial cells. - Received zosyn and dapto in ED and received unasyn at the time of admission. - Urine culture pin point growth - pending. - If positive continue abx. otherwise d/c Chronic back pain: - Tylenol and K pad as needed. Code Status: FULL CODE DVT prophylaxis: Xarelto Disposition: PCU Diet: Regular, easy to chew. NSS+KCl @ 100cc/hr Admission and Anticipated Discharge Date Admission Date: August 13, 2020 Supervising Physician Co-Signing Physician Notes Resident Physician Supervision Note: I independently interviewed and examined the patient and verified the phipps history and physical, reviewed labs and image studies, discussed the case with the resident Dr. Bryant and agree with the findings and care plan. Subjective Patient without acute events overnight. At this time reports that her abdominal pain is resolved, and that "she has not felt this comfortable in weeks". Does not endorse shortness of breath, though is on 2LNC at this time. Denies chest pain, nausea, vomiting. Review of Systems Review of Systems: All systems reviewed & are unremarkable except as noted in HPI & below Constitutional: no fever, no chills and no malaise Respiratory: no cough and no dyspnea Cardiovascular: no chest pain, no palpitations and no edema Gastrointestinal: no abdominal pain Genitourinary: no dysuria and no hematuria Physical Exam Constitutional: WD/WN, vitals as above Respiratory: normal respiratory effort, lungs clear to auscultation saturating 93% on 3LNC Cardiovascular: RRR, no murmur, no edema Gastrointestinal (Abdomen): Inspection/Auscultation: normal bowel sounds; abdomen not distended Percussion/Palpation: abdomen soft; abdomen nontender and no guarding Skin: no rashes, warm and dry Psychiatric: A+Ox3, euthymic affect Results & Data Results & Data ([facility]) Vital Signs (Past 12 Hours) Vital Signs Temp Pulse Pulse Resp BP BP Pulse Ox 08/14/20 07:14 36.6 C 71 18 102/63 93 08/14/20 04:13 36.3 C L 83 20 103/67 99 08/14/20 00:07 36.3 C L 86 18 97/63 L 93 08/13/20 23:59 101 H 08/13/20 23:15 78 20 97/61 L 99 08/13/20 22:45 78 22 95/58 L 97 08/13/20 21:50 95 H 22 62/50 L 98 08/13/20 21:47 90 18 98 08/13/20 20:58 37.0 C 120 H 30 H 92/62 L 88 L 08/13/20 20:21 113 H 22 100/68 90 08/13/20 19:57 100 H 22 94 08/13/20 19:52 103 H 22 134/59 L 79 L Resident Activity Tracking Resident Involvement: Resident Care Provided Care Provided: Adult Hospital Medicine
[2020-08-14] MEDS ORDERED: INFLUENZA ADMINISTRATION CHARGE ONE (08:00)
[2020-08-14] MEDS ORDERED: INFLUENZA VACCINE HIGH DOSE 65+ 0.7 ML SYR IM ONE (08:00)
[2020-08-14] MEDS ORDERED: PERFLUTREN LIPID MICROSPHERE (DEFINITY) IV ONE (08:20)
[2020-08-14] MEDS ORDERED: PANTOprazole 40 MG TAB PO SCH (09:00)
[2020-08-14] MEDS ORDERED: FAMOTIDINE 20 MG in SYRINGE 3 ML IV SCH (09:00)
[2020-08-14] MEDS: MAGNESIUM OXIDE 400 MG TAB PO SCH ×2 (10:31→20:12)
[2020-08-14] MEDS: bisacodyL 10 MG SUPP PR SCH (11:10)
--- NOTE | 2020-08-14 12:43 | XCELERA ---
[id number] \\[id number]
--- NOTE | 2020-08-14 14:24 | Electrocardiogram Report ---
Test Reason : Blood Pressure : / mmHG Vent. Rate : 076 BPM Atrial Rate : 076 BPM P-R Int : 144 ms QRS Dur : 082 ms QT Int : 462 ms P-R-T Axes : 065 -26 048 degrees QTc Int : 519 ms Normal sinus rhythm Low voltage QRS Nonspecific ST abnormality Abnormal ECG When compared with ECG of 13-AUG-2020 19:36, (unconfirmed) Premature supraventricular complexes are no longer Present Nonspecific T wave abnormality now evident in Anterior leads Nonspecific T wave abnormality no longer evident in Lateral leads Confirmed by José Luis Chamberlain ([id number]) on 08/14/2020 2:24:36 PM Referred By: REFERRED SELF Confirmed By:José Luis Chamberlain
--- NOTE | 2020-08-14 14:34 | Electrocardiogram Report ---
Test Reason : Blood Pressure : / mmHG Vent. Rate : 082 BPM Atrial Rate : 082 BPM P-R Int : 154 ms QRS Dur : 078 ms QT Int : 430 ms P-R-T Axes : 076 007 076 degrees QTc Int : 502 ms Normal sinus rhythm Low voltage QRS Prolonged QT Abnormal ECG When compared with ECG of 13-AUG-2020 22:53, (unconfirmed) No significant change was found Confirmed by José Luis Chamberlain ([id number]) on 08/14/2020 2:33:46 PM Referred By: REFERRED SELF Confirmed By:José Luis Chamberlain
[2020-08-14] MEDS: RIVAROXABAN 15 MG TAB PO SCH (20:13)
[2020-08-14] MEDS ORDERED: POTASSIUM CHLORIDE CRTAB 20 MEQ TABCR PO SCH (22:00)
--- NOTE | 2020-08-14 23:04 | Electrocardiogram Report ---
Test Reason : Blood Pressure : / mmHG Vent. Rate : 097 BPM Atrial Rate : 097 BPM P-R Int : 118 ms QRS Dur : 082 ms QT Int : 372 ms P-R-T Axes : 077 -12 073 degrees QTc Int : 472 ms Poor data quality, interpretation may be adversely affected Sinus rhythm with Premature supraventricular complexes Nonspecific ST and T wave abnormality Abnormal ECG When compared with ECG of 21-NOV-2010 08:57, Criteria for Septal infarct are no longer Present Nonspecific T wave abnormality now evident in Lateral leads Confirmed by José Luis Chamberlain ([id number]) on 08/14/2020 11:03:48 PM Referred By: REFERRED SELF Confirmed By:José Luis Chamberlain
[2020-08-15 06:06] LABS: Basophils # (auto) 0.01 K/uL (0-0.2); Basophils % (auto) 0.1 %; Eosinophils # (auto) 0.02 K/uL (0-0.5); Eosinophils % (auto) 0.2 %; Hematocrit (blood only) 38.2 % (37-47); Hemoglobin 12.7 g/dL (12.0-16.0); Immature Granulocytes # (auto) 0.06 K/uL (0.00-0.02); Immature Granulocytes % (auto) 0.5 %; Lymphocytes # (auto) 2.56 K/uL (1.2-3.4); Lymphocytes % (auto) 19.6 %; Mean Corpuscular Hemoglobin 34.5 pg (25-34); Mean Corpuscular Hgb Conc 33.2 g/dL (32-36); Mean Corpuscular Volume 103.8 fL (80-100); Mean Platelet Volume 9.5 fL (7.4-10.4); Monocytes # (auto) 0.94 K/uL (0.11-0.59); Monocytes % (auto) 7.2 %; Neutrophils # (auto) 9.46 K/uL (1.4-6.5); Neutrophils % (auto) 72.4 %; Platelet Count 244 K/uL (130-400); RDW Coefficient of Variation 18.1 % (11.5-14.5); RDW Standard Deviation 67.8 fL (36.4-46.3); Red Blood Count 3.68 M/uL (4.2-5.4); White Blood Count 13.05 K/uL (4.8-10.8)
[2020-08-15 06:50] LABS: BUN Creatinine Ratio 31.3 (10-20); Creatinine Clr Calc Pharmacy 51.6 ml/min; Est GFR (African American) 93.4; Est GFR (Non-African American) 80.6; Potassium 4.5 mmol/L (3.5-5.1)
[2020-08-15] MEDS: NSS + 20MEQ KCL 20 MEQ/1,000 ML BAG IV SCH (08:32)
[2020-08-15] MEDS: bisacodyL 10 MG SUPP PR SCH (08:33)
[2020-08-15] MEDS: THIAMINE HCL 100 MG TAB PO SCH (08:33)
[2020-08-15] MEDS: MAGNESIUM OXIDE 400 MG TAB PO SCH ×2 (08:34→22:41)
[2020-08-15] MEDS: PANTOprazole 40 MG TAB PO SCH (08:34)
[2020-08-15] MEDS: MULTIVITAMIN TAB PO SCH (08:34)
[2020-08-15] MEDS ORDERED: FOLIC ACID 400 MCG TAB PO SCH (09:00)
--- NOTE | 2020-08-15 10:41 | Hospitalist Progress Note ---
Date of Service August 15, 2020 Assessment & Plan (1) Abdominal pain: 85 yo F PMHx CVA, HTN, osteopenia, COREY, GERD, and long-term anticoagulation on rivaroxaban who is admitted for stercoral colitis and acute hypoxic respiratory failure. Stercoral colitis and fecal retention: - CT abdomen: significant stool with fecal impaction, as well as perirectal and presacral stranding suggestive of stercoral colitis. - Multiple loose stools since admission. - Check KUB for stool burden - still with significant amount. - Dulcolax PA, mag-ox 400 mg BID Acute hypoxic respiratory failure on BiPAP 2/2 diaphragmatic compromise from severe stool impaction: - dyspneic sensation improved, still requiring oxymask. no o2 requirement prior to admission - CXR negative for PNA, PTX. CTA Chest +/- small chronic pulmonari emboli on xarelto - incentive spirometer to open lungs and decrease atelectasis - COVID negative Severe protein calorie malnutrition: - Patient with poor oral intake and no appetite x 1 month. - Nutrition: minced/moist diet with Boost GC TIDM - remeron 15 mg QHS, 2.5 mg Marinol TID 1 hr before meals for appetite stimulation - PT/OT evals pending to aid in decision for home health vs. rehab Troponin Elevation: - Initial EKG poor quality with artifact, concern for potential nonspecific ST changes. Repeat EKG with with potential 1 mm depression in V4/V5. - Troponin peaked at 0.111, downtrended. no chest pain and patient is comfortable. - WIL poor study, unable to evaluate for wall motion abnormalities. Chronic back pain: - Tylenol and K pad as needed. DVT PPX: Xarelto FEN/GI: minced, easy to chew diet with Boost GC supplement. Code Status: Full Code Dispo: Home vs. SNF pending PT/OT evals Admission and Anticipated Discharge Date Admission Date: August 13, 2020 Supervising Physician Co-Signing Physician Notes Resident Physician Supervision Note: I independently interviewed and examined the patient and verified the phipps history and physical, reviewed labs and image studies, discussed the case with the resident Dr. Higgins and agree with the findings and care plan. Subjective Feeling okay this morning. says she didn't sleep well, and her backside hurts from the constant diarrhea dribble and being in bed. states that she has no trouble with breathing or difficulty breathing while on 4L oxymask. Hasn't had an appetite in ~1 mo. Eats anywhere from 1-2 bites of dinner to half the plate at home. Tries to drink 1 bottle of ensure per day but often doesn't finish it. Review of Systems Constitutional: + fatigue and + insomnia; no fever, no chills and no body a ches Respiratory: no cough, no dyspnea and no pain on inspiration Cardiovascular: no chest pain and no edema Gastrointestinal: + bloating and + fecal incontinence; no nausea and no vomiting Physical Exam Physical Exam: Const: thin, frail elderly woman laying back in bed. Card: RRR, no murmurs rubs or gallops Abd: diffusely nontender to palpation, distended colon palpable through thin abd skin Extremities: 2+ pitting edema to knee on left leg, right leg no edema Results & Data Results & Data ([facility]) Vital Signs (Past 12 Hours) Vital Signs Temp Pulse Pulse Resp BP Pulse Ox 08/15/20 07:57 36.7 C 90 25 H 94/61 L 90 08/15/20 07:00 70 08/15/20 03:17 36.5 C 82 20 96/58 L 93 08/14/20 23:11 36.7 C 86 21 99/63 L 90 08/14/20 23:00 78 Laboratory Results WBC 13.05 K/uL (4.8-10.8) H 08/15/20 05:25 RBC 3.68 M/uL (4.2-5.4) L 08/15/20 05:25 Hgb 12.7 g/dL (12.0-16.0) 08/15/20 05:25 POC Hgb 12.9 g/dl (12.0-16.0) 08/13/20 20:19 Hct 38.2 % (37-47) 08/15/20 05:25 POC Hct 38 % (37-47) 08/13/20 20:19 MCV 103.8 fL (80-100) H 08/15/20 05:25 MCH 34.5 pg (25-34) H 08/15/20 05:25 MCHC 33.2 g/dL (32-36) 08/15/20 05:25 RDW Std Deviation 67.8 fL (36.4-46.3) H 08/15/20 05:25 RDW Coeff of Steve 18.1 % (11.5-14.5) H 08/15/20 05:25 Plt Count 244 K/uL (130-400) 08/15/20 05:25 MPV 9.5 fL (7.4-10.4) 08/15/20 05:25 Immature Gran % (Auto) 0.5 % 08/15/20 05:25 Neut % (Auto) 72.4 % 08/15/20 05:25 Lymph % (Auto) 19.6 % 08/15/20 05:25 Collin % (Auto) 7.2 % 08/15/20 05:25 Eos % (Auto) 0.2 % 08/15/20 05:25 Baso % (Auto) 0.1 % 08/15/20 05:25 Neut # (Auto) 9.46 K/uL (1.4-6.5) H 08/15/20 05:25 Lymph # (Auto) 2.56 K/uL (1.2-3.4) 08/15/20 05:25 Collin # (Auto) 0.94 K/uL (0.11-0.59) H 08/15/20 05:25 Eos # (Auto) 0.02 K/uL (0-0.5) 08/15/20 05:25 Baso # (Auto) 0.01 K/uL (0-0.2) 08/15/20 05:25 Immature Gran # (Auto) 0.06 K/uL (0.00-0.02) H 08/15/20 05:25 Absolute Nucleated RBC 0.00 K/uL (0-0) 08/15/20 05:25 Nucleated RBC % (auto) 0.0 % 08/15/20 05:25 ESR 9 mm/hr (0-21) 08/13/20 20:39 PT 14.7 Seconds (9.0-12.0) H 08/13/20 20:39 INR 1.4 (0.9-1.1) H 08/13/20 20:39 APTT 32.5 Seconds (21.0-31.0) H 08/13/20 20:39 PTT Ratio 1.2 08/13/20 20:39 VBG pH 7.37 (7.36-7.41) 08/13/20 20:39 VBG pCO2 38 mmHg (38-50) 08/13/20 20:39 VBG pO2 25 mmHg 08/13/20 20:39 VBG HCO3 22 mmol/L 08/13/20 20:39 VBG O2 Saturation < 60.0 % 08/13/20 20:39 VBG Base Excess -3.1 mEq/L 08/13/20 20:39 Barometric Pressure 729.7 mm/Hg 08/13/20 20:39 POC Sodium 138 mmol/L (135-144) 08/13/20 20:19 Sodium 143 mmol/L (136-145) 08/15/20 05:25 POC Potassium 2.7 mmol/L (3.3-5.0) L 08/13/20 20:19 Potassium 4.5 mmol/L (3.5-5.1) D 08/15/20 05:25 POC Chloride 106 mmol/L (101-112) 08/13/20 20:19 Chloride 115 mmol/L (98-107) H 08/15/20 05:25 Carbon Dioxide 27 mmol/L (21-32) 08/15/20 05:25 POC Total CO2 20 mmol/L (24-31) L 08/13/20 20:19 Anion Gap 1.0 (3-11) L 08/15/20 05:25 POC Anion Gap 15.0 mmol/L (16-25) L 08/13/20 20:19 POC BUN 28 mg/dl (7-18) H 08/13/20 20:19 BUN 21 mg/dl (7-18) H 08/15/20 05:25 Creatinine 0.66 mg/dl (0.6-1.2) 08/15/20 05:25 POC Creatinine 0.8 mg/dl (0.6-1.3) 08/13/20 20:19 Est Cr Clr Drug Dosing 51.6 ml/min 08/15/20 05:25 Est GFR ( Amer) 93.4 08/15/20 05:25 Est GFR (Non-Af Amer) 80.6 08/15/20 05:25 BUN/Creatinine Ratio 31.3 (10-20) H 08/15/20 05:25 Glucose 78 mg/dl (70-99) 08/15/20 05:25 POC Glucose 107 mg/dl (70-99) H 08/14/20 11:14 POC Glucose (other) 121 mg/dl (70-99) H 08/13/20 20:19 Lactate 1.4 mmol/L (0.4-2.0) 08/14/20 02:13 Calcium 8.0 mg/dl (8.5-10.1) L 08/15/20 05:25 POC Ioniz Calcium Kd 0.89 mmol/l (1.12-1.32) L 08/13/20 20:19 Phosphorus 2.9 mg/dl (2.5-4.9) 08/14/20 02:13 Magnesium 2.4 mg/dl (1.8-2.4) 08/14/20 02:13 Ferritin 551.4 ng/ml (8-388) H 08/13/20 20:39 Total Bilirubin 0.8 mg/dl (0.2-1) 08/14/20 02:13 AST 28 U/L (15-37) 08/14/20 02:13 ALT 18 U/L (12-78) 08/14/20 02:13 Alkaline Phosphatase 91 U/L (45-117) 08/14/20 02:13 Lactate Dehydrogenase 277 U/L (84-246) H 08/13/20 20:39 Total Creatine Kinase 74 U/L (26-192) 08/13/20 20:39 Total Creatine Kinase Cancelled 08/13/20 20:39 CK-MB (CK-2) 4.1 ng/ml (0.5-3.6) H 08/13/20 20:39 CK-MB (CK-2) Cancelled 08/13/20 20:39 CK/CKMB % Calc 5.5 (0-3.0) H 08/13/20 20:39 CK/CKMB % Calc Cancelled 08/13/20 20:39 Troponin I 0.093 ng/ml (0-0.045) H* 08/14/20 07:50 C-Reactive Protein 1.10 mg/dl (0-0.29) H 08/13/20 20:39 Total Protein 5.1 gm/dl (6.4-8.2) L 08/14/20 02:13 Albumin 2.3 gm/dl (3.4-5.0) L 08/14/20 02:13 Globulin 2.8 gm/dl (2.5-4.0) 08/14/20 02:13 Albumin/Globulin Ratio 0.8 (0.9-2) L 08/14/20 02:13 Vitamin B12 716 pg/ml (193-986) 08/14/20 02:13 Folate > 20.00 ng/ml (>5.38) 08/14/20 02:13 Procalcitonin 0.08 ng/ml (0-0.5) 08/13/20 20:39 Random Cortisol 45.69 mcg/dl 08/13/20 20:39 Urine Color [place] 08/13/20 21:24 Urine Appearance Cloudy (Clear) A 08/13/20 21:24 Urine pH 6.5 (4.5-7.5) 08/13/20 21:24 Ur Specific [place] 1.010 (1.000-1.030) 08/13/20 21:24 Urine Protein 2+ (Negative) H 08/13/20 21:24 Urine Glucose (UA) Negative (Negative) 08/13/20 21:24 Urine Ketones Trace (Negative) H 08/13/20 21:24 Urine Blood 2+ (Negative) H 08/13/20 21:24 Urine Nitrite Negative (Negative) 08/13/20 21:24 Urine Bilirubin 2+ (Negative) H 08/13/20 21:24 Urine Urobilinogen Positive (Negative) H 08/13/20 21:24 Ur Leukocyte Esterase 2+ (Negative) H 08/13/20 21:24 Urine RBC 10-30 /hpf (0-4) H 08/13/20 21:24 Urine WBC >30 /hpf (0-5) H 08/13/20 21:24 Ur Epithelial Cells >30 /lpf (0-5) H 08/13/20 21:24 Ur Renal Epithelial Cell 5-10 /lpf (0-5) H 08/13/20 21:24 Amorphous Sediment Present (None Prsent) A 08/13/20 21:24 Urine Bacteria 2+ (Negative) H 08/13/20 21:24 Hyaline Casts 10-30 /lpf (0-5) H 08/13/20 21:24 Urine Mucus Present (None Prsent) A 08/13/20 21:24 Stool Occult Bld Scrn Positive (Negative) A 08/14/20 14:05 Stl C. diff Tox B Gene Negative Cdiff Gene (Neg) 08/14/20 14:05 COVID-19 Eval Order [facility]Rsv at [facility] 08/13/20 19:49 SARS-CoV-2 (PCR) NEGATIVE (Negative) 08/13/20 19:49 Influenza Type A (PCR) Negative (Neg) 08/13/20 19:49 Influenza Type B (PCR) Negative (Neg) 08/13/20 19:49 RSV (RT-PCR) Negative (Neg) 08/13/20 19:49 Blood Type O Positive 08/13/20 20:39 Antibody Screen NEGATIVE 08/13/20 20:39 Resident Activity Tracking Resident Involvement: Resident Care Provided Care Provided: Adult Hospital Medicine
[2020-08-15] MEDS ORDERED: POTASSIUM CHLORIDE CRTAB 20 MEQ TABCR PO SCH (12:00)
--- NOTE | 2020-08-15 13:34 | XRay Report ---
KUB CLINICAL HISTORY: stool impaction COMPARISON STUDY: CT of the abdomen and pelvis August 13, 2020. FINDINGS: Bilateral hip arthroplasties and cholecystectomy clips are noted. Large amount stool within the rectum is noted. Persistent gaseous distention of small large bowel are noted. IMPRESSION: 1. Large amount stool within the rectum suggestive of fecal impaction. 2. Persistent mild gaseous distention of small and large bowel. ACT 112: Negative or not required by law. Electronically signed by: Rufino Graves M.D. 08/15/2020 1:32 PM
[2020-08-15] MEDS: DICLOFENAC SOD 1% GEL 100 GM TUBE EXT SCH ×4 (14:08→22:42)
[2020-08-15] MEDS ORDERED: bisacodyL 10 MG SUPP PR STA (14:14)
[2020-08-15] MEDS: MIRTAZAPINE TAB 15 MG TAB PO SCH (22:41)
[2020-08-15] MEDS: RIVAROXABAN 15 MG TAB PO SCH (22:42)
[2020-08-16] MEDS: NSS + 20MEQ KCL 20 MEQ/1,000 ML BAG IV SCH ×2 (08:09→21:41)
[2020-08-16] MEDS: DICLOFENAC SOD 1% GEL 100 GM TUBE EXT SCH ×4 (08:15→21:48)
[2020-08-16] MEDS: CHOLECALCIFEROL 1,000 UNITS 25 MCG TAB PO SCH ×2 (09:02→09:19)
[2020-08-16] MEDS: bisacodyL 10 MG SUPP PR SCH ×2 (09:02→09:18)
[2020-08-16] MEDS: FOLIC ACID 1 MG TAB PO SCH ×2 (09:02→09:19)
[2020-08-16] MEDS: THIAMINE HCL 100 MG TAB PO SCH ×2 (09:02→09:19)
[2020-08-16] MEDS: LOSARTAN POTASSIUM 50 MG TAB PO SCH ×2 (09:02→09:18)
[2020-08-16] MEDS: MAGNESIUM OXIDE 400 MG TAB PO SCH ×2 (09:02→21:48)
[2020-08-16] MEDS: MULTIVITAMIN TAB PO SCH ×2 (09:02→09:19)
[2020-08-16] MEDS: PANTOprazole 40 MG TAB PO SCH ×2 (09:02→09:19)
--- NOTE | 2020-08-16 11:16 | Hospitalist Progress Note ---
Date of Service August 16, 2020 Assessment & Plan (1) Abdominal pain: 85 yo F PMHx CVA, HTN, osteopenia, COREY, GERD, and long-term anticoagulation on rivaroxaban who is admitted for stercoral colitis and acute hypoxic respiratory failure. Stercoral colitis and fecal retention: - CT abdomen: significant stool with fecal impaction, as well as perirectal and presacral stranding suggestive of stercoral colitis. - KUB demonstrating continued impaction - Dulcolax [place], mag-ox 400 mg BID - Add senna Acute hypoxic respiratory failure on BiPAP 2/2 diaphragmatic compromise from severe stool impaction: - dyspneic sensation improved, still requiring oxymask. no o2 requirement prior to admission - CXR negative for PNA, PTX. CTA Chest +/- small chronic pulmonari emboli on xarelto - worsened hypoxia when sitting up at bedside with OT -- dropped to 70's - incentive spirometer to open lungs and decrease atelectasis - COVID negative Severe protein calorie malnutrition: - Patient with poor oral intake and no appetite x 1 month. - Nutrition: minced/moist diet with Boost GC TIDM - remeron 15 mg QHS, 2.5 mg Marinol TID 1 hr before meals for appetite stimulation - PT/OT: SNF placement Troponin Elevation: - Initial EKG poor quality with artifact, concern for potential nonspecific ST changes. Repeat EKG with with potential 1 mm depression in V4/V5. - Troponin peaked at 0.111, downtrended. no chest pain and patient is comfortable. - WIL poor study, unable to evaluate for wall motion abnormalities. Chronic back pain: - Tylenol and K pad as needed. DVT PPX: Xarelto FEN/GI: minced, easy to chew diet with Boost GC supplement. Code Status: Full Code Dispo: SNF pending authorization and approval Admission and Anticipated Discharge Date Admission Date: August 13, 2020 Supervising Physician Co-Signing Physician Notes Resident Physician Supervision Note: I independently interviewed and examined the patient and verified the phipps history and physical, reviewed labs and image studies, discussed the case with the resident Dr. Higgins and agree with the findings and care plan. Subjective tired this AM, didn't get much sleep last night. no abdominal pain. Review of Systems Review of Systems: All systems reviewed & are unremarkable except as noted in Subjective Physical Exam Physical Exam: Const: thin, frail elderly woman laying back in bed. Card: RRR, no murmurs rubs or gallops Abd: diffusely nontender to palpation, distended colon palpable through thin abd skin Extremities: 2+ pitting edema to knee on left leg, right leg no edema Results & Data Results & Data ([facility]) Vital Signs (Past 12 Hours) Vital Signs Temp Pulse Resp BP Pulse Ox 08/16/20 07:47 36.4 C L 93 H 18 110/71 93 Laboratory Results WBC 13.05 K/uL (4.8-10.8) H 08/15/20 05:25 RBC 3.68 M/uL (4.2-5.4) L 08/15/20 05:25 Hgb 12.7 g/dL (12.0-16.0) 08/15/20 05:25 POC Hgb 12.9 g/dl (12.0-16.0) 08/13/20 20:19 Hct 38.2 % (37-47) 08/15/20 05:25 POC Hct 38 % (37-47) 08/13/20 20:19 MCV 103.8 fL (80-100) H 08/15/20 05:25 MCH 34.5 pg (25-34) H 08/15/20 05:25 MCHC 33.2 g/dL (32-36) 08/15/20 05:25 RDW Std Deviation 67.8 fL (36.4-46.3) H 08/15/20 05:25 RDW Coeff of Steve 18.1 % (11.5-14.5) H 08/15/20 05:25 Plt Count 244 K/uL (130-400) 08/15/20 05:25 MPV 9.5 fL (7.4-10.4) 08/15/20 05:25 Immature Gran % (Auto) 0.5 % 08/15/20 05:25 Neut % (Auto) 72.4 % 08/15/20 05:25 Lymph % (Auto) 19.6 % 08/15/20 05:25 [place] % (Auto) 7.2 % 08/15/20 05:25 Eos % (Auto) 0.2 % 08/15/20 05:25 Baso % (Auto) 0.1 % 08/15/20 05:25 Neut # (Auto) 9.46 K/uL (1.4-6.5) H 08/15/20 05:25 Lymph # (Auto) 2.56 K/uL (1.2-3.4) 08/15/20 05:25 [place] # (Auto) 0.94 K/uL (0.11-0.59) H 08/15/20 05:25 Eos # (Auto) 0.02 K/uL (0-0.5) 08/15/20 05:25 Baso # (Auto) 0.01 K/uL (0-0.2) 08/15/20 05:25 Immature Gran # (Auto) 0.06 K/uL (0.00-0.02) H 08/15/20 05:25 Absolute Nucleated RBC 0.00 K/uL (0-0) 08/15/20 05:25 Nucleated RBC % (auto) 0.0 % 08/15/20 05:25 ESR 9 mm/hr (0-21) 08/13/20 20:39 PT 14.7 Seconds (9.0-12.0) H 08/13/20 20:39 INR 1.4 (0.9-1.1) H 08/13/20 20:39 APTT 32.5 Seconds (21.0-31.0) H 08/13/20 20:39 PTT Ratio 1.2 08/13/20 20:39 VBG pH 7.37 (7.36-7.41) 08/13/20 20:39 VBG pCO2 38 mmHg (38-50) 08/13/20 20:39 VBG pO2 25 mmHg 08/13/20 20:39 VBG HCO3 22 mmol/L 08/13/20 20:39 VBG O2 Saturation < 60.0 % 08/13/20 20:39 VBG Base Excess -3.1 mEq/L 08/13/20 20:39 Barometric Pressure 729.7 mm/Hg 08/13/20 20:39 POC Sodium 138 mmol/L (135-144) 08/13/20 20:19 Sodium 143 mmol/L (136-145) 08/15/20 05:25 POC Potassium 2.7 mmol/L (3.3-5.0) L 08/13/20 20:19 Potassium 4.5 mmol/L (3.5-5.1) D 08/15/20 05:25 POC Chloride 106 mmol/L (101-112) 08/13/20 20:19 Chloride 115 mmol/L (98-107) H 08/15/20 05:25 Carbon Dioxide 27 mmol/L (21-32) 08/15/20 05:25 POC Total CO2 20 mmol/L (24-31) L 08/13/20 20:19 Anion Gap 1.0 (3-11) L 08/15/20 05:25 POC Anion Gap 15.0 mmol/L (16-25) L 08/13/20 20:19 POC BUN 28 mg/dl (7-18) H 08/13/20 20:19 BUN 21 mg/dl (7-18) H 08/15/20 05:25 Creatinine 0.66 mg/dl (0.6-1.2) 08/15/20 05:25 POC Creatinine 0.8 mg/dl (0.6-1.3) 08/13/20 20:19 Est Cr Clr Drug Dosing 51.6 ml/min 08/15/20 05:25 Est GFR ( Amer) 93.4 08/15/20 05:25 Est GFR (Non-Af Amer) 80.6 08/15/20 05:25 BUN/Creatinine Ratio 31.3 (10-20) H 08/15/20 05:25 Glucose 78 mg/dl (70-99) 08/15/20 05:25 POC Glucose 107 mg/dl (70-99) H 08/14/20 11:14 POC Glucose (other) 121 mg/dl (70-99) H 08/13/20 20:19 Lactate 1.4 mmol/L (0.4-2.0) 08/14/20 02:13 Calcium 8.0 mg/dl (8.5-10.1) L 08/15/20 05:25 POC Ioniz Calcium Kd 0.89 mmol/l (1.12-1.32) L 08/13/20 20:19 Phosphorus 2.9 mg/dl (2.5-4.9) 08/14/20 02:13 Magnesium 2.4 mg/dl (1.8-2.4) 08/14/20 02:13 Ferritin 551.4 ng/ml (8-388) H 08/13/20 20:39 Total Bilirubin 0.8 mg/dl (0.2-1) 08/14/20 02:13 AST 28 U/L (15-37) 08/14/20 02:13 ALT 18 U/L (12-78) 08/14/20 02:13 Alkaline Phosphatase 91 U/L (45-117) 08/14/20 02:13 Lactate Dehydrogenase 277 U/L (84-246) H 08/13/20 20:39 Total Creatine Kinase 74 U/L (26-192) 08/13/20 20:39 Total Creatine Kinase Cancelled 08/13/20 20:39 CK-MB (CK-2) 4.1 ng/ml (0.5-3.6) H 08/13/20 20:39 CK-MB (CK-2) Cancelled 08/13/20 20:39 CK/CKMB % Calc 5.5 (0-3.0) H 08/13/20 20:39 CK/CKMB % Calc Cancelled 08/13/20 20:39 Troponin I 0.093 ng/ml (0-0.045) H* 08/14/20 07:50 C-Reactive Protein 1.10 mg/dl (0-0.29) H 08/13/20 20:39 Total Protein 5.1 gm/dl (6.4-8.2) L 08/14/20 02:13 Albumin 2.3 gm/dl (3.4-5.0) L 08/14/20 02:13 Globulin 2.8 gm/dl (2.5-4.0) 08/14/20 02:13 Albumin/Globulin Ratio 0.8 (0.9-2) L 08/14/20 02:13 Vitamin B12 716 pg/ml (193-986) 08/14/20 02:13 Folate > 20.00 ng/ml (>5.38) 08/14/20 02:13 Procalcitonin 0.08 ng/ml (0-0.5) 08/13/20 20:39 Random Cortisol 45.69 mcg/dl 08/13/20 20:39 Urine Color [place] 08/13/20 21:24 Urine Appearance Cloudy (Clear) A 08/13/20 21:24 Urine pH 6.5 (4.5-7.5) 08/13/20 21:24 Ur Specific [place] 1.010 (1.000-1.030) 08/13/20 21:24 Urine Protein 2+ (Negative) H 08/13/20 21:24 Urine Glucose (UA) Negative (Negative) 08/13/20 21:24 Urine Ketones Trace (Negative) H 08/13/20 21:24 Urine Blood 2+ (Negative) H 08/13/20 21:24 Urine Nitrite Negative (Negative) 08/13/20 21:24 Urine Bilirubin 2+ (Negative) H 08/13/20 21:24 Urine Urobilinogen Positive (Negative) H 08/13/20 21:24 Ur Leukocyte Esterase 2+ (Negative) H 08/13/20 21:24 Urine RBC 10-30 /hpf (0-4) H 08/13/20 21:24 Urine WBC >30 /hpf (0-5) H 08/13/20 21:24 Ur Epithelial Cells >30 /lpf (0-5) H 08/13/20 21:24 Ur Renal Epithelial Cell 5-10 /lpf (0-5) H 08/13/20 21:24 Amorphous Sediment Present (None Prsent) A 08/13/20 21:24 Urine Bacteria 2+ (Negative) H 08/13/20 21:24 Hyaline Casts 10-30 /lpf (0-5) H 08/13/20 21:24 Urine Mucus Present (None Prsent) A 08/13/20 21:24 Stool Occult Bld Scrn Positive (Negative) A 08/14/20 14:05 Stl C. diff Tox B Gene Negative Cdiff Gene (Neg) 08/14/20 14:05 COVID-19 Eval Order CovFluRsv at [facility] 08/13/20 19:49 SARS-CoV-2 (PCR) NEGATIVE (Negative) 08/13/20 19:49 Influenza Type A (PCR) Negative (Neg) 08/13/20 19:49 Influenza Type B (PCR) Negative (Neg) 08/13/20 19:49 RSV (RT-PCR) Negative (Neg) 08/13/20 19:49 Blood Type O Positive 08/13/20 20:39 Antibody Screen NEGATIVE 08/13/20 20:39 Resident Activity Tracking Resident Involvement: Resident Care Provided Care Provided: Adult Hospital Medicine
--- NOTE | 2020-08-16 19:12 | XRay Report ---
XR chest 1V portable HISTORY: hypoxia COMPARISON: Chest 08/13/2020. FINDINGS: Calcified granuloma within the left lung base, unchanged. Calcified right paratracheal and right hilar lymph nodes are again noted. Left jugular central venous catheter terminates in the SVC. There are low lung volumes. No new focal lung consolidations to suggest pneumonia. No evidence for pu lmonary edema. No pleural effusions. No pneumothorax. The heart is normal in size. IMPRESSION: No acute process. ACT 112: Negative or not required by law. Electronically signed by: Danny Burnette M.D. 08/16/2020 7:10 PM
[2020-08-16] MEDS: MIRTAZAPINE TAB 15 MG TAB PO SCH (21:48)
[2020-08-16] MEDS: RIVAROXABAN 15 MG TAB PO SCH (21:49)
[2020-08-17 07:21] LABS: Calcium 8.9 mg/dl (8.5-10.1); Est GFR (African American) 102.3; Est GFR (Non-African American) 88.3; Potassium 4.3 mmol/L (3.5-5.1)
[2020-08-17] MEDS ORDERED: CARBOHYDRATES FOR HYPOGLYCEMIA PO PRN ×2 (07:24→07:44)
[2020-08-17] MEDS ORDERED: GLUCOSE 40% GEL 15 GM TUBE PO PRN (07:44)
[2020-08-17] MEDS ORDERED: DEXTROSE 50% 50 ML SYRINGE IV PRN (07:44)
[2020-08-17] MEDS ORDERED: GLUCOSE 10 TABS/TUBE PO PRN (07:44)
[2020-08-17] MEDS ORDERED: GLUCAGON FOR INJ 1 MG VIAL SQ PRN (07:44)
[2020-08-17] MEDS: D5W AND 1/2NSS + 20MEQ KCL 20 MEQ/1,000 ML BAG IV SCH ×2 (08:38→19:32)
[2020-08-17] MEDS: MAGNESIUM OXIDE 400 MG TAB PO SCH ×2 (08:40→20:01)
[2020-08-17] MEDS: DICLOFENAC SOD 1% GEL 100 GM TUBE EXT SCH ×4 (08:41→20:01)
[2020-08-17] MEDS: THIAMINE HCL 100 MG TAB PO SCH (08:41)
[2020-08-17] MEDS: CHOLECALCIFEROL 1,000 UNITS 25 MCG TAB PO SCH (08:41)
[2020-08-17] MEDS: SENNA 8.6 MG TAB PO SCH (08:41)
[2020-08-17] MEDS: FOLIC ACID 1 MG TAB PO SCH (08:41)
[2020-08-17] MEDS: PANTOprazole 40 MG TAB PO SCH (08:41)
[2020-08-17] MEDS: MULTIVITAMIN TAB PO SCH (08:41)
[2020-08-17] MEDS: LOSARTAN POTASSIUM 50 MG TAB PO SCH (08:41)
[2020-08-17] MEDS: bisacodyL 10 MG SUPP PR SCH (10:54)
[2020-08-17] MEDS ORDERED: SOD PHOSPHATE/SOD BIPHOSPHATE ENEMA 132 ML BTL PR STA (10:57)
--- NOTE | 2020-08-17 10:57 | Hospitalist Progress Note ---
Date of Service August 17, 2020 Assessment & Plan (1) Abdominal pain: 85 yo F PMHx CVA, HTN, osteopenia, COREY, GERD, and long-term anticoagulation on rivaroxaban who is admitted for stercoral colitis and acute hypoxic respiratory failure. Hypoglycemia - w/o dx DM2 or insulin use - most likely deficiency of nutrient stores in hepatic system - fluids switched to D5 1/2NS +K - considering TPN going forward if able to get bowel movement today - IJ in place for venous access. peripheral 22 able to give TPN however would not last long Stercoral colitis and fecal retention: - CT abdomen: significant stool with fecal impaction, as well as perirectal and presacral stranding suggestive of stercoral colitis. - repeat KUB today with worsening pain and labored breathing at bedside, O2 drop to 70 with OT yesterday when sitting up at bedside - attempted NG placement to mitigate abdominal distension, unsuccessful. - added on TID PRN fleet enema and TID TRISH miralax - Dulcolax [place], mag-ox 400 mg BID Acute hypoxic respiratory failure on BiPAP 2/2 diaphragmatic compromise from severe stool impaction: - dyspneic sensation improved, still requiring oxymask. no o2 requirement prior to admission - CXR negative for PNA, PTX. CTA Chest +/- small chronic pulmonary emboli on xarelto - worsened hypoxia when sitting up at bedside with OT -- dropped to 70's - incentive spirometer to open lungs and decrease atelectasis - COVID negative Severe protein calorie malnutrition: - Patient with poor oral intake and no appetite x 1 month. - Nutrition: minced/moist diet with Boost GC TIDM - remeron 15 mg QHS, 2.5 mg Marinol TID 1 hr before meals for appetite stimulation - PT/OT: SNF placement Troponin Elevation: - Initial EKG poor quality with artifact, concern for potential nonspecific ST changes. Repeat EKG with with potential 1 mm depression in V4/V5. - Troponin peaked at 0.111, downtrended. no chest pain and patient is comfortable. - WIL poor study, unable to evaluate for wall motion abnormalities. Chronic back pain: - Tylenol and K pad as needed. DVT PPX: Xarelto FEN/GI: minced, easy to chew diet with Boost GC supplement. Code Status: Full Code Dispo: SNF pending authorization and approval Admission and Anticipated Discharge Date Admission Date: August 13, 2020 Supervising Physician Co-Signing Physician Notes I personally examined the patient and verified all phipps points of history and exam, discussed case, and agree with decision making with Dr Higgins belly feeling worse and now breathing feeling worse too. OK w NGT just worried about it vitals noted, appearing uncomfortable. lungs clear belly distended and tender without guarding/rebound constipation/fecal impaction - behaving enough like bowel obstruction at this point to warrant NG to try to alleviate pain as well as the dyspnea that pain/bloating have caused. enemas, work on bowel regimen, supportive care. O2, follow breathing - but right now suspect it's due to compression from abdominal bloating Subjective worsening abdominal pain this mroning. no appetite. Review of Systems Gastrointestinal: + abdominal pain, + bloating, + cramping, + constipation and + fecal incontinence Physical Exam Physical Exam: Const: thin, frail elderly woman laying back in bed. Card: RRR, no murmurs rubs or gallops PUlm: labored breathing on 4L NC, not belly breathing due to pain Abd: generally tender to palpation, distended colon palpable through thin abd skin, more distended than previous exams Extremities: 2+ pitting edema to knee on left leg, right leg no edema Results & Data Results & Data ([facility]) Vital Signs (Past 12 Hours) Vital Signs Temp Pulse Resp BP Pulse Ox 08/17/20 06:19 37.1 C 95 H 17 111/70 91 08/16/20 23:57 36.5 C 99 H 20 103/71 90 Laboratory Results WBC 13.05 K/uL (4.8-10.8) H 08/15/20 05:25 RBC 3.68 M/uL (4.2-5.4) L 08/15/20 05:25 Hgb 12.7 g/dL (12.0-16.0) 08/15/20 05:25 POC Hgb 12.9 g/dl (12.0-16.0) 08/13/20 20:19 Hct 38.2 % (37-47) 08/15/20 05:25 POC Hct 38 % (37-47) 08/13/20 20:19 MCV 103.8 fL (80-100) H 08/15/20 05:25 MCH 34.5 pg (25-34) H 08/15/20 05:25 MCHC 33.2 g/dL (32-36) 08/15/20 05:25 RDW Std Deviation 67.8 fL (36.4-46.3) H 08/15/20 05:25 RDW Coeff of Steve 18.1 % (11.5-14.5) H 08/15/20 05:25 Plt Count 244 K/uL (130-400) 08/15/20 05:25 MPV 9.5 fL (7.4-10.4) 08/15/20 05:25 Immature Gran % (Auto) 0.5 % 08/15/20 05:25 Neut % (Auto) 72.4 % 08/15/20 05:25 Lymph % (Auto) 19.6 % 08/15/20 05:25 [place] % (Auto) 7.2 % 08/15/20 05:25 Eos % (Auto) 0.2 % 08/15/20 05:25 Baso % (Auto) 0.1 % 08/15/20 05:25 Neut # (Auto) 9.46 K/uL (1.4-6.5) H 08/15/20 05:25 Lymph # (Auto) 2.56 K/uL (1.2-3.4) 08/15/20 05:25 [place] # (Auto) 0.94 K/uL (0.11-0.59) H 08/15/20 05:25 Eos # (Auto) 0.02 K/uL (0-0.5) 08/15/20 05:25 Baso # (Auto) 0.01 K/uL (0-0.2) 08/15/20 05:25 Immature Gran # (Auto) 0.06 K/uL (0.00-0.02) H 08/15/20 05:25 Absolute Nucleated RBC 0.00 K/uL (0-0) 08/15/20 05:25 Nucleated RBC % (auto) 0.0 % 08/15/20 05:25 ESR 9 mm/hr (0-21) 08/13/20 20:39 PT 14.7 Seconds (9.0-12.0) H 08/13/20 20:39 INR 1.4 (0.9-1.1) H 08/13/20 20:39 APTT 32.5 Seconds (21.0-31.0) H 08/13/20 20:39 PTT Ratio 1.2 08/13/20 20:39 VBG pH 7.37 (7.36-7.41) 08/13/20 20:39 VBG pCO2 38 mmHg (38-50) 08/13/20 20:39 VBG pO2 25 mmHg 08/13/20 20:39 VBG HCO3 22 mmol/L 08/13/20 20:39 VBG O2 Saturation < 60.0 % 08/13/20 20:39 VBG Base Excess -3.1 mEq/L 08/13/20 20:39 Barometric Pressure 729.7 mm/Hg 08/13/20 20:39 POC Sodium 138 mmol/L (135-144) 08/13/20 20:19 Sodium 144 mmol/L (136-145) 08/17/20 05:38 POC Potassium 2.7 mmol/L (3.3-5.0) L 08/13/20 20:19 Potassium 4.3 mmol/L (3.5-5.1) 08/17/20 05:38 POC Chloride 106 mmol/L (101-112) 08/13/20 20:19 Chloride 115 mmol/L (98-107) H 08/17/20 05:38 Carbon Dioxide 19 mmol/L (21-32) L 08/17/20 05:38 POC Total CO2 20 mmol/L (24-31) L 08/13/20 20:19 Anion Gap 10.0 (3-11) 08/17/20 05:38 POC Anion Gap 15.0 mmol/L (16-25) L 08/13/20 20:19 POC BUN 28 mg/dl (7-18) H 08/13/20 20:19 BUN 17 mg/dl (7-18) 08/17/20 05:38 Creatinine 0.50 mg/dl (0.6-1.2) L 08/17/20 05:38 POC Creatinine 0.8 mg/dl (0.6-1.3) 08/13/20 20:19 Est Cr Clr Drug Dosing 68.0 ml/min 08/17/20 05:38 Est GFR ( Amer) 102.3 08/17/20 05:38 Est GFR (Non-Af Amer) 88.3 08/17/20 05:38 BUN/Creatinine Ratio 33.0 (10-20) H 08/17/20 05:38 Glucose 53 mg/dl (70-99) L* 08/17/20 05:38 POC Glucose 127 mg/dl (70-99) H 08/17/20 12:13 POC Glucose (other) 121 mg/dl (70-99) H 08/13/20 20:19 Lactate 1.4 mmol/L (0.4-2.0) 08/14/20 02:13 Calcium 8.9 mg/dl (8.5-10.1) 08/17/20 05:38 POC Ioniz Calcium Kd 0.89 mmol/l (1.12-1.32) L 08/13/20 20:19 Phosphorus 2.9 mg/dl (2.5-4.9) 08/14/20 02:13 Magnesium 2.4 mg/dl (1.8-2.4) 08/14/20 02:13 Ferritin 551.4 ng/ml (8-388) H 08/13/20 20:39 Total Bilirubin 0.8 mg/dl (0.2-1) 08/14/20 02:13 AST 28 U/L (15-37) 08/14/20 02:13 ALT 18 U/L (12-78) 08/14/20 02:13 Alkaline Phosphatase 91 U/L (45-117) 08/14/20 02:13 Lactate Dehydrogenase 277 U/L (84-246) H 08/13/20 20:39 Total Creatine Kinase 74 U/L (26-192) 08/13/20 20:39 Total Creatine Kinase Cancelled 08/13/20 20:39 CK-MB (CK-2) 4.1 ng/ml (0.5-3.6) H 08/13/20 20:39 CK-MB (CK-2) Cancelled 08/13/20 20:39 CK/CKMB % Calc 5.5 (0-3.0) H 08/13/20 20:39 CK/CKMB % Calc Cancelled 08/13/20 20:39 Troponin I 0.093 ng/ml (0-0.045) H* 08/14/20 07:50 C-Reactive Protein 1.10 mg/dl (0-0.29) H 08/13/20 20:39 Total Protein 5.1 gm/dl (6.4-8.2) L 08/14/20 02:13 Albumin 2.3 gm/dl (3.4-5.0) L 08/14/20 02:13 Globulin 2.8 gm/dl (2.5-4.0) 08/14/20 02:13 Albumin/Globulin Ratio 0.8 (0.9-2) L 08/14/20 02:13 Vitamin B12 716 pg/ml (193-986) 08/14/20 02:13 Folate > 20.00 ng/ml (>5.38) 08/14/20 02:13 Procalcitonin 0.08 ng/ml (0-0.5) 08/13/20 20:39 Random Cortisol 45.69 mcg/dl 08/13/20 20:39 Urine Color [place] 08/13/20 21:24 Urine Appearance Cloudy (Clear) A 08/13/20 21:24 Urine pH 6.5 (4.5-7.5) 08/13/20 21:24 Ur Specific [place] 1.010 (1.000-1.030) 08/13/20 21:24 Urine Protein 2+ (Negative) H 08/13/20 21:24 Urine Glucose (UA) Negative (Negative) 08/13/20 21:24 Urine Ketones Trace (Negative) H 08/13/20 21:24 Urine Blood 2+ (Negative) H 08/13/20 21:24 Urine Nitrite Negative (Negative) 08/13/20 21:24 Urine Bilirubin 2+ (Negative) H 08/13/20 21:24 Urine Urobilinogen Positive (Negative) H 08/13/20 21:24 Ur Leukocyte Esterase 2+ (Negative) H 08/13/20 21:24 Urine RBC 10-30 /hpf (0-4) H 08/13/20 21:24 Urine WBC >30 /hpf (0-5) H 08/13/20 21:24 Ur Epithelial Cells >30 /lpf (0-5) H 08/13/20 21:24 Ur Renal Epithelial Cell 5-10 /lpf (0-5) H 08/13/20 21:24 Amorphous Sediment Present (None Prsent) A 08/13/20 21:24 Urine Bacteria 2+ (Negative) H 08/13/20 21:24 Hyaline Casts 10-30 /lpf (0-5) H 08/13/20 21:24 Urine Mucus Present (None Prsent) A 08/13/20 21:24 Stool Occult Bld Scrn Positive (Negative) A 08/14/20 14:05 Stl C. diff Tox B Gene Negative Cdiff Gene (Neg) 08/14/20 14:05 COVID-19 Eval Order [facility]Rsv at [facility] 08/13/20 19:49 SARS-CoV-2 (PCR) NEGATIVE (Negative) 08/13/20 19:49 Influenza Type A (PCR) Negative (Neg) 08/13/20 19:49 Influenza Type B (PCR) Negative (Neg) 08/13/20 19:49 RSV (RT-PCR) Negative (Neg) 08/13/20 19:49 Blood Type O Positive 08/13/20 20:39 Antibody Screen NEGATIVE 08/13/20 20:39 Resident Activity Tracking Resident Involvement: Resident Care Provided Care Provided: Adult Hospital Medicine
[2020-08-17] MEDS ORDERED: POLYETHYLENE (MIRALAX) 17 GM PACK PO PRN (10:58)
[2020-08-17] MEDS ORDERED: SOD PHOSPHATE/SOD BIPHOSPHATE ENEMA 132 ML BTL PR PRN (11:38)
[2020-08-17] MEDS ORDERED: POLYETHYLENE (MIRALAX) 17 GM PACK PO SCH (12:30)
--- NOTE | 2020-08-17 14:29 | XRay Report ---
XR KUB/Abdomen 1 view CLINICAL HISTORY: abd distention with fecal impaction COMPARISON STUDY: 08/15/2020 FINDINGS: There is persistent gaseous distention of both large and small bowel loops. There is modera te rectosigmoid stool. There are surgical clips within the right upper quadrant consistent with a enmanuel or cholecystectomy. IMPRESSION: 1. Moderate rectosigmoid stool similar to the prior study 2. Gaseous distention of large and small bowel loops, similar to the prior study ACT 112: Negative or not required by law. Electronically signed by: Heath Hwang M.D. 08/17/2020 2:28 PM
[2020-08-17] MEDS: POLYETHYLENE (MIRALAX) 17 GM PACK PO SCH ×2 (14:39→20:01)
[2020-08-17] MEDS ORDERED: POLYETHYLENE (MIRALAX) 17 GM PACK PO STA (18:44)
--- NOTE | 2020-08-17 19:03 | Billing Data ---
Date of Service August 17, 2020 Coding Level of Care Code 43447 Subseq Hosp Care Lvl 3
[2020-08-17] MEDS: MIRTAZAPINE TAB 15 MG TAB PO SCH (20:01)
[2020-08-17] MEDS: RIVAROXABAN 15 MG TAB PO SCH (20:02)
[2020-08-18] MEDS: D5W AND 1/2NSS + 20MEQ KCL 20 MEQ/1,000 ML BAG IV SCH ×2 (04:34→16:36)
[2020-08-18] MEDS: MINERAL OIL ENEMA 133 ML BTL PR SCH ×5 (07:30→17:09)
[2020-08-18] MEDS: bisacodyL 10 MG SUPP PR SCH (07:30)
[2020-08-18] MEDS ORDERED: LORazepam 1 MG TAB PO STA (08:35)
[2020-08-18] MEDS ORDERED: LORazepam 1 MG/2 ML VIAL IV ONE (09:15)
[2020-08-18] MEDS: LOSARTAN POTASSIUM 50 MG TAB PO SCH (09:27)
[2020-08-18] MEDS: FOLIC ACID 1 MG TAB PO SCH (09:27)
[2020-08-18] MEDS: MULTIVITAMIN TAB PO SCH (09:28)
[2020-08-18] MEDS: SENNA 8.6 MG TAB PO SCH (09:28)
[2020-08-18] MEDS: CHOLECALCIFEROL 1,000 UNITS 25 MCG TAB PO SCH (09:28)
[2020-08-18] MEDS: THIAMINE HCL 100 MG TAB PO SCH (09:28)
[2020-08-18] MEDS: MAGNESIUM OXIDE 400 MG TAB PO SCH ×2 (09:28→20:04)
[2020-08-18] MEDS: POLYETHYLENE (MIRALAX) 17 GM PACK PO SCH ×3 (09:28→20:04)
[2020-08-18] MEDS: PANTOprazole 40 MG TAB PO SCH (09:28)
--- NOTE | 2020-08-18 09:54 | XRay Report ---
XR chest 1V portable HISTORY: Ng tube placed COMPARISON: Chest 08/16/2020. FINDINGS: Nasogastric tube terminates at the gastroesophageal junction. This should be advanced by ap proximate 5 to 10 cm. Left jugular central venous catheter terminating at the proximal SVC. No pneumo thorax. No pleural effusions. Punctate calcified granuloma within the left lower lobe, unchanged. Tanika or cholecystectomy. Multiple dilated gas-filled loops of large and small bowel are seen throughout th e abdomen. IMPRESSION: 1. Nasogastric tube terminates at the gastroesophageal junction. This should be advanced by approxima tely 5 to 10 cm. 2. Gaseous distention of the large and small bowel is again noted. ACT 112: Negative or not required by law. Electronically signed by: Danny Burnette M.D. 08/18/2020 9:53 AM
--- NOTE | 2020-08-18 10:26 | Hospitalist Progress Note ---
Date of Service August 18, 2020 Assessment & Plan (1) Abdominal pain: 85 yo F PMHx CVA, HTN, osteopenia, COREY, GERD, and long-term anticoagulation on rivaroxaban who is admitted for stercoral colitis and acute hypoxic respiratory failure. Stercoral colitis and fecal retention: - CT abdomen: significant stool with fecal impaction, as well as perirectal and presacral stranding suggestive of stercoral colitis. - with worsening pain and labored breathing at bedside, up to 5L NC now - finally achieved NG placement this AM, set to low intermittent suction - manual disimpaction at bedside yielding copious amounts of stool - continue TID PRN fleet enema and TID TRISH miralax - Dulcolax SD, mag-ox 400 mg BID - KUB tomorrow AM to follow progress Acute hypoxic respiratory failure on BiPAP 2/2 diaphragmatic compromise from severe stool impaction: - worsening O2 requirement up to 5lNC, transitioned to bipap and then HFNC given worsened respiratory drive with ativan - CXR negative for PNA, PTX. CTA Chest +/- small chronic pulmonary emboli on xarelto - worsened hypoxia when sitting up at bedside with OT -- dropped to 70's - incentive spirometer to open lungs and decrease atelectasis - COVID negative Hypoglycemia - w/o dx DM2 or insulin use - most likely deficiency of nutrient stores in hepatic system - fluids switched to D5 1/2NS +K - considering TPN going forward if able to get bowel movement today - IJ in place for venous access. peripheral 22 able to give TPN however would not last long Severe protein calorie malnutrition: - Patient with poor oral intake and no appetite x 1 month. - Nutrition: minced/moist diet with Boost GC TIDM - remeron 15 mg QHS, 2.5 mg Marinol TID 1 hr before meals for appetite stimulation - PT/OT: SNF placement Chronic back pain: - Tylenol and K pad as needed. DVT PPX: Xarelto FEN/GI: minced, easy to chew diet with Boost GC supplement. Code Status: Full Code Dispo:Med surg w/ tele Admission and Anticipated Discharge Date Admission Date: August 13, 2020 Supervising Physician Co-Signing Physician Notes I personally examined the patient and verified all phipps points of history and exam, discussed case, and agree with decision making with Dr Higgins seen multiple times today. somewhat sedate after ativan- but largely endorses ongoing belly pain. later more calm and resting comfortably and has been stable per nursing assessment vitals noted, initially somewhat sedate and dyspnic appearing, later resting comfortably. lungs diminished bibasilar but clear. ABG noted, CXR and KUB noted. rectal with LARGE amount of soft mixed with a few pieces of hard stool - disimpacted of large volume of stool in distended rectum. pt tolerated well, abd less distended after. later revisited, abd sl more distended than immediately post disimpaction - but was able to do gentle stim OMT in region of colon with pt tolerating well. constipation/fecal impaction - behaving as bowel obstruction - NGT placed but pt did not tolerate/pulled out. breathing impaired largely from abdominal distention from intestinal dilation - but to a degree as well tmeporarily from ativan necessary for sedation to try to get NGT in. supportive care provided, pt did well as day progressed. disimpacted by myself for large volume. continue bowel regimen. since large amount removed on disimpaction, continue current plan, but if no improvement into tomorrow then consider GI consult as carter nunes. otherwise as above Subjective no acute events overnight. still unable to pass bowel movement and now refusing enema. This morning: with great difficulty able to pass 10 vietnamese NG tube to stomach to try to decompress growing diameter of large and small colon. required IV and PO ativan 1 mg to cooperate with procedure, however after placement had increasing shallow frequent breaths. respiratory called to bedside to place cpap/bipap. abg revealing no hypercabia, poor oxygenation. titrated down to high flow nasal cannula to make patient more comfortable while managing hypoxia. Review of Systems Constitutional: + fatigue and + anorexia Respiratory: + dyspnea Physical Exam Physical Exam: Const: thin, frail elderly woman laying back in bed. Card: RRR, no murmurs rubs or gallops PUlm: labored breathing on 5L NC, not belly breathing due to pain Abd: worsening distention of abdomen, more tight to palpation, continues to be globally painful Extremities: 2+ pitting edema to knee on left leg, right leg no edema Results & Data Results & Data ([facility]) Vital Signs (Past 12 Hours) Vital Signs Temp Pulse Resp BP Pulse Ox 08/18/20 07:15 36.6 C 79 18 110/73 92 08/17/20 23:03 36.4 C L 85 20 98/65 L 90 Laboratory Results WBC 13.05 K/uL (4.8-10.8) H 08/15/20 05:25 RBC 3.68 M/uL (4.2-5.4) L 08/15/20 05:25 Hgb 12.7 g/dL (12.0-16.0) 08/15/20 05:25 POC Hgb 12.9 g/dl (12.0-16.0) 08/13/20 20:19 Hct 38.2 % (37-47) 08/15/20 05:25 POC Hct 38 % (37-47) 08/13/20 20:19 MCV 103.8 fL (80-100) H 08/15/20 05:25 MCH 34.5 pg (25-34) H 08/15/20 05:25 MCHC 33.2 g/dL (32-36) 08/15/20 05:25 RDW Std Deviation 67.8 fL (36.4-46.3) H 08/15/20 05:25 RDW Coeff of Steve 18.1 % (11.5-14.5) H 08/15/20 05:25 Plt Count 244 K/uL (130-400) 08/15/20 05:25 MPV 9.5 fL (7.4-10.4) 08/15/20 05:25 Immature Gran % (Auto) 0.5 % 08/15/20 05:25 Neut % (Auto) 72.4 % 08/15/20 05:25 Lymph % (Auto) 19.6 % 08/15/20 05:25 [place] % (Auto) 7.2 % 08/15/20 05:25 Eos % (Auto) 0.2 % 08/15/20 05:25 Baso % (Auto) 0.1 % 08/15/20 05:25 Neut # (Auto) 9.46 K/uL (1.4-6.5) H 08/15/20 05:25 Lymph # (Auto) 2.56 K/uL (1.2-3.4) 08/15/20 05:25 [place] # (Auto) 0.94 K/uL (0.11-0.59) H 08/15/20 05:25 Eos # (Auto) 0.02 K/uL (0-0.5) 08/15/20 05:25 Baso # (Auto) 0.01 K/uL (0-0.2) 08/15/20 05:25 Immature Gran # (Auto) 0.06 K/uL (0.00-0.02) H 08/15/20 05:25 Absolute Nucleated RBC 0.00 K/uL (0-0) 08/15/20 05:25 Nucleated RBC % (auto) 0.0 % 08/15/20 05:25 ESR 9 mm/hr (0-21) 08/13/20 20:39 PT 14.7 Seconds (9.0-12.0) H 08/13/20 20:39 INR 1.4 (0.9-1.1) H 08/13/20 20:39 APTT 32.5 Seconds (21.0-31.0) H 08/13/20 20:39 PTT Ratio 1.2 08/13/20 20:39 ABG pH 7.46 (7.35-7.45) H 08/18/20 10:30 ABG pCO2 25 mmHg (35-46) L 08/18/20 10:30 ABG pO2 46 mmHg (80-95) L 08/18/20 10:30 ABG HCO3 17 mmol/L (19-24) L 08/18/20 10:30 ABG O2 Saturation 83.6 % (90-95) L 08/18/20 10:30 ABG Base Excess -4.8 mEq/L (-9-1.8) 08/18/20 10:30 Pawel Test Pos (Pos) 08/18/20 10:30 VBG pH 7.37 (7.36-7.41) 08/13/20 20:39 VBG pCO2 38 mmHg (38-50) 08/13/20 20:39 VBG pO2 25 mmHg 08/13/20 20:39 VBG HCO3 22 mmol/L 08/13/20 20:39 VBG O2 Saturation < 60.0 % 08/13/20 20:39 VBG Base Excess -3.1 mEq/L 08/13/20 20:39 Barometric Pressure 736.3 mm/Hg 08/18/20 10:30 Oxygen Given 10 L 08/18/20 10:30 POC Sodium 138 mmol/L (135-144) 08/13/20 20:19 Sodium 144 mmol/L (136-145) 08/17/20 05:38 POC Potassium 2.7 mmol/L (3.3-5.0) L 08/13/20 20:19 Potassium 4.3 mmol/L (3.5-5.1) 08/17/20 05:38 POC Chloride 106 mmol/L (101-112) 08/13/20 20:19 Chloride 115 mmol/L (98-107) H 08/17/20 05:38 Carbon Dioxide 19 mmol/L (21-32) L 08/17/20 05:38 POC Total CO2 20 mmol/L (24-31) L 08/13/20 20:19 Anion Gap 10.0 (3-11) 08/17/20 05:38 POC Anion Gap 15.0 mmol/L (16-25) L 08/13/20 20:19 POC BUN 28 mg/dl (7-18) H 08/13/20 20:19 BUN 17 mg/dl (7-18) 08/17/20 05:38 Creatinine 0.50 mg/dl (0.6-1.2) L 08/17/20 05:38 POC Creatinine 0.8 mg/dl (0.6-1.3) 08/13/20 20:19 Est Cr Clr Drug Dosing 68.0 ml/min 08/17/20 05:38 Est GFR ( Amer) 102.3 08/17/20 05:38 Est GFR (Non-Af Amer) 88.3 08/17/20 05:38 BUN/Creatinine Ratio 33.0 (10-20) H 08/17/20 05:38 Glucose 53 mg/dl (70-99) L* 08/17/20 05:38 POC Glucose 127 mg/dl (70-99) H 08/17/20 12:13 POC Glucose (other) 121 mg/dl (70-99) H 08/13/20 20:19 Lactate 1.4 mmol/L (0.4-2.0) 08/14/20 02:13 Calcium 8.9 mg/dl (8.5-10.1) 08/17/20 05:38 POC Ioniz Calcium Kd 0.89 mmol/l (1.12-1.32) L 08/13/20 20:19 Phosphorus 2.9 mg/dl (2.5-4.9) 08/14/20 02:13 Magnesium 2.4 mg/dl (1.8-2.4) 08/14/20 02:13 Ferritin 551.4 ng/ml (8-388) H 08/13/20 20:39 Total Bilirubin 0.8 mg/dl (0.2-1) 08/14/20 02:13 AST 28 U/L (15-37) 08/14/20 02:13 ALT 18 U/L (12-78) 08/14/20 02:13 Alkaline Phosphatase 91 U/L (45-117) 08/14/20 02:13 Lactate Dehydrogenase 277 U/L (84-246) H 08/13/20 20:39 Total Creatine Kinase 74 U/L (26-192) 08/13/20 20:39 Total Creatine Kinase Cancelled 08/13/20 20:39 CK-MB (CK-2) 4.1 ng/ml (0.5-3.6) H 08/13/20 20:39 CK-MB (CK-2) Cancelled 08/13/20 20:39 CK/CKMB % Calc 5.5 (0-3.0) H 08/13/20 20:39 CK/CKMB % Calc Cancelled 08/13/20 20:39 Troponin I 0.093 ng/ml (0-0.045) H* 08/14/20 07:50 C-Reactive Protein 1.10 mg/dl (0-0.29) H 08/13/20 20:39 Total Protein 5.1 gm/dl (6.4-8.2) L 08/14/20 02:13 Albumin 2.3 gm/dl (3.4-5.0) L 08/14/20 02:13 Globulin 2.8 gm/dl (2.5-4.0) 08/14/20 02:13 Albumin/Globulin Ratio 0.8 (0.9-2) L 08/14/20 02:13 Vitamin B12 716 pg/ml (193-986) 08/14/20 02:13 Folate > 20.00 ng/ml (>5.38) 08/14/20 02:13 Procalcitonin 0.08 ng/ml (0-0.5) 08/13/20 20:39 Random Cortisol 45.69 mcg/dl 08/13/20 20:39 Urine Color [place] 08/13/20 21:24 Urine Appearance Cloudy (Clear) A 08/13/20 21:24 Urine pH 6.5 (4.5-7.5) 08/13/20 21:24 Ur Specific [place] 1.010 (1.000-1.030) 08/13/20 21:24 Urine Protein 2+ (Negative) H 08/13/20 21:24 Urine Glucose (UA) Negative (Negative) 08/13/20 21:24 Urine Ketones Trace (Negative) H 08/13/20 21:24 Urine Blood 2+ (Negative) H 08/13/20 21:24 Urine Nitrite Negative (Negative) 08/13/20 21:24 Urine Bilirubin 2+ (Negative) H 08/13/20 21:24 Urine Urobilinogen Positive (Negative) H 08/13/20 21:24 Ur Leukocyte Esterase 2+ (Negative) H 08/13/20 21:24 Urine RBC 10-30 /hpf (0-4) H 08/13/20 21:24 Urine WBC >30 /hpf (0-5) H 08/13/20 21:24 Ur Epithelial Cells >30 /lpf (0-5) H 08/13/20 21:24 Ur Renal Epithelial Cell 5-10 /lpf (0-5) H 08/13/20 21:24 Amorphous Sediment Present (None Prsent) A 08/13/20 21:24 Urine Bacteria 2+ (Negative) H 08/13/20 21:24 Hyaline Casts 10-30 /lpf (0-5) H 08/13/20 21:24 Urine Mucus Present (None Prsent) A 08/13/20 21:24 Stool Occult Bld Scrn Positive (Negative) A 08/14/20 14:05 Stl C. diff Tox B Gene Negative Cdiff Gene (Neg) 08/14/20 14:05 COVID-19 Eval Order CovFluRsv at [facility] 08/13/20 19:49 SARS-CoV-2 (PCR) NEGATIVE (Negative) 08/13/20 19:49 Influenza Type A (PCR) Negative (Neg) 08/13/20 19:49 Influenza Type B (PCR) Negative (Neg) 08/13/20 19:49 RSV (RT-PCR) Negative (Neg) 08/13/20 19:49 Blood Type O Positive 08/13/20 20:39 Antibody Screen NEGATIVE 08/13/20 20:39 Resident Activity Tracking Resident Involvement: Resident Care Provided Care Provided: Adult Hospital Medicine
[2020-08-18] MEDS: DICLOFENAC SOD 1% GEL 100 GM TUBE EXT SCH ×4 (10:41→23:24)
[2020-08-18 10:43] LABS: Base Excess ABG -4.8 mEq/L (-9-1.8); HCO3 ABG 17 mmol/L (19-24); Oxygen Saturation ABG 83.6 % (90-95); PCO2 ABG 25 mmHg (35-46); PO2 ABG 46 mmHg (80-95); pH ABG 7.46 (7.35-7.45)
[2020-08-18 10:46] LABS: Allen Test Pos (Pos)
[2020-08-18] MEDS ORDERED: FLUMAZENIL 0.1 MG/1 ML 10 ML VIAL IV STA (11:14)
--- NOTE | 2020-08-18 11:56 | XRay Report ---
KUB CLINICAL HISTORY: Enteric tube placement. FINDINGS: 2 AP, portable, supine abdominal radiographs are compared to study dated 08/17/2020 and sarabjit elated with abdominal CT dated 08/13/2020. An enteric tube has been placed. The tip projects just abov e the diaphragm. There is persistent gaseous distention of the small bowel loops and colon. Cholecyst ectomy clips are noted in the right upper quadrant. Calcified splenic granulomas an vascular calcific ations are seen in the left upper quadrant. The skeletal structures are osteopenic. There is advanced lumbosacral spondylosis and scoliosis. A left hip arthroplasty is partially imaged. IMPRESSION: 1. The tip of the enteric tube projects just above the diaphragm. This should be advanced. 2. There is persistent gaseous distention of the small bowel loops and colon. Electronically signed by: Celso Cordero M.D. 08/18/2020 11:54 AM
--- NOTE | 2020-08-18 19:39 | Billing Data ---
Date of Service August 18, 2020 Coding Level of Care Code 96646 Subseq Hosp Care Lvl 3
[2020-08-18] MEDS: RIVAROXABAN 15 MG TAB PO SCH (20:04)
[2020-08-18] MEDS: MIRTAZAPINE TAB 15 MG TAB PO SCH (20:04)
[2020-08-19] MEDS: D5W AND 1/2NSS + 20MEQ KCL 20 MEQ/1,000 ML BAG IV SCH ×3 (02:46→23:55)
--- NOTE | 2020-08-19 07:06 | XRay Report ---
KUB HISTORY: Follow up study in a patient with abdominal distention stool impaction COMPARISON: KUB 08/18/2020 FINDINGS: The previously noted enteric tube is not visualized and may have been removed in the interv al. Granulomata of the spleen redemonstrated. Surgical clips of the abdominal right upper quadrant. N o pneumatosis or pneumoperitoneum. Persistent gaseous distention involves loops of both large and sma ll bowel. Moderate fecal retention of the rectum with mild stool volume within the descending colon. Dextroscoliosis of the lumbar spine with multilevel advanced degenerative changes. Bilateral hip tota l joint arthroplasties. IMPRESSION: 1. Previously noted enteric tube is not visualized and may have been removed in the interval. 2. Persistent gaseous distention of both large and small bowel loops. ACT 112: Negative or not required by law. The above report was generated using voice recognition software. It may contain grammatical, syntax o r spelling errors. Electronically signed by: Prieto Manriquez M.D. 08/19/2020 7:04 AM
[2020-08-19] MEDS ORDERED: SODIUM CHLORIDE 0.9% 1000ML 1,000 ML IV SCH (07:20)
[2020-08-19 08:34] LABS: Basophils # (auto) 0.02 K/uL (0-0.2); Basophils % (auto) 0.2 %; Eosinophils # (auto) 0.09 K/uL (0-0.5); Eosinophils % (auto) 0.7 %; Hematocrit (blood only) 37.1 % (37-47); Hemoglobin 12.1 g/dL (12.0-16.0); Immature Granulocytes % (auto) 0.8 %; Lymphocytes # (auto) 3.03 K/uL (1.2-3.4); Mean Corpuscular Hgb Conc 32.6 g/dL (32-36); Mean Corpuscular Volume 104.2 fL (80-100); Mean Platelet Volume 9.5 fL (7.4-10.4); Monocytes # (auto) 0.91 K/uL (0.11-0.59); Monocytes % (auto) 7.5 %; Neutrophils # (auto) 7.95 K/uL (1.4-6.5); Neutrophils % (auto) 65.8 %; Platelet Count 244 K/uL (130-400); RDW Coefficient of Variation 18.7 % (11.5-14.5); RDW Standard Deviation 69.2 fL (36.4-46.3); Red Blood Count 3.56 M/uL (4.2-5.4)
[2020-08-19 08:52] LABS: BUN Creatinine Ratio 22.6 (10-20); Calcium 8.4 mg/dl (8.5-10.1); Creatinine Clr Calc Pharmacy 55.8 ml/min; Est GFR (African American) 95.8; Est GFR (Non-African American) 82.7; Potassium 4.5 mmol/L (3.5-5.1)
--- NOTE | 2020-08-19 09:18 | Hospitalist Progress Note ---
Date of Service August 19, 2020 Assessment & Plan (1) Abdominal pain: 85 yo F PMHx CVA, HTN, osteopenia, COREY, GERD, and long-term anticoagulation on rivaroxaban who is admitted for stercoral colitis and acute hypoxic respiratory failure. Acute hypoxic respiratory failure on BiPAP 2/2 diaphragmatic compromise from severe stool impaction: - worsening O2 requirement up to 15lNC, did well on High flow NC yesterday - CXR negative for PNA, PTX. CTA Chest +/- small chronic pulmonary emboli on xarelto - unsure why O2 requirement increasing with decreasing abdominal distention. - incentive spirometer to open lungs and decrease atelectasis - COVID negative Stercoral colitis and fecal retention: - managing as SBO + constipation - NPO, continue dulcolax suppositories and fleet enemas BID PRN - miralax TID and mag-ox 400 BID when tolerating PO tomorrow? - KUB this morning still showing lots of air in large and small bowel, with decreasing amount of stool in rectum and descending colon - manual disimpaction at bedside yesterday yielding copious amounts of stool Hypoglycemia - w/o dx DM2 or insulin use - most likely deficiency of nutrient stores in hepatic system - fluids switched to D5 1/2NS +K - considering TPN going forward if able to get bowel movement today - IJ in place for venous access. peripheral 22 able to give TPN however would not last long Severe protein calorie malnutrition: - Patient with poor oral intake and no appetite x 1 month. - Nutrition: minced/moist diet with Boost GC TIDM - remeron 15 mg QHS, 2.5 mg Marinol TID 1 hr before meals for appetite stimulation - PT/OT: SNF placement Chronic back pain: - Tylenol and K pad as needed. DVT PPX: Xarelto FEN/GI: minced, easy to chew diet with Boost GC supplement. Code Status: Full Code Dispo:Med surg w/ tele. tx to [facility] when medically stable. Admission and Anticipated Discharge Date Admission Date: August 13, 2020 Supervising Physician Co-Signing Physician Notes I personally examined the patient and verified all phipps points of history and exam, discussed case, and agree with decision making with Dr Ronaldo raza feeling better - still hurts but better than before. doesn't feel sob. hasn't been oob. vitals noted, constipation/fecal impaction - finally improving post disimpaction x2 and aggressive bowel regimen hypoxia - extensive review, appears that this is almost certainly from shallow breathing from belly issues. coached on incentive spirometry, encouraged to use 5x/hr, asked pt/nursing to ensure OOB otherwise as above, appears slightly better than the last 2 days. Subjective resting in bed comfortably.feeling better this mornign after manual disimpaction yesterday and soap bobbi enema this morning. Review of Systems Respiratory: + pain on inspiration; no cough and no dyspnea Cardiovascular: no chest pain, no dyspnea and no edema Gastrointestinal: no abdominal pain, no nausea, no vomiting, no constipation and no diarrhea/loose stools Physical Exam Physical Exam: Const: thin, frail elderly woman laying back in bed, considerably more comfortable Card: RRR, no murmurs rubs or gallops PUlm: labored breathing on 5L NC, not belly breathing due to pain Abd: abdominal distension improved, softer, less painful though still with some pain Extremities: 2+ pitting edema to knee on left leg, right leg no edema Results & Data Results & Data ([facility]) Vital Signs (Past 12 Hours) Vital Signs Temp Pulse Resp BP Pulse Ox 08/19/20 08:40 36.7 C 83 20 101/66 90 08/19/20 05:57 92 08/19/20 04:00 36.9 C 108 H 18 96/68 L 90 08/18/20 22:38 36.9 C 71 24 111/74 94 Laboratory Results WBC 12.10 K/uL (4.8-10.8) H 08/19/20 08:22 RBC 3.56 M/uL (4.2-5.4) L 08/19/20 08:22 Hgb 12.1 g/dL (12.0-16.0) 08/19/20 08:22 POC Hgb 12.9 g/dl (12.0-16.0) 08/13/20 20:19 Hct 37.1 % (37-47) 08/19/20 08:22 POC Hct 38 % (37-47) 08/13/20 20:19 MCV 104.2 fL (80-100) H 08/19/20 08:22 MCH 34.0 pg (25-34) 08/19/20 08:22 MCHC 32.6 g/dL (32-36) 08/19/20 08:22 RDW Std Deviation 69.2 fL (36.4-46.3) H 08/19/20 08:22 RDW Coeff of Steve 18.7 % (11.5-14.5) H 08/19/20 08:22 Plt Count 244 K/uL (130-400) 08/19/20 08:22 MPV 9.5 fL (7.4-10.4) 08/19/20 08:22 Immature Gran % (Auto) 0.8 % 08/19/20 08:22 Neut % (Auto) 65.8 % 08/19/20 08:22 Lymph % (Auto) 25.0 % 08/19/20 08:22 [place] % (Auto) 7.5 % 08/19/20 08:22 Eos % (Auto) 0.7 % 08/19/20 08:22 Baso % (Auto) 0.2 % 08/19/20 08:22 Neut # (Auto) 7.95 K/uL (1.4-6.5) H 08/19/20 08:22 Lymph # (Auto) 3.03 K/uL (1.2-3.4) 08/19/20 08:22 [place] # (Auto) 0.91 K/uL (0.11-0.59) H 08/19/20 08:22 Eos # (Auto) 0.09 K/uL (0-0.5) 08/19/20 08:22 Baso # (Auto) 0.02 K/uL (0-0.2) 08/19/20 08:22 Immature Gran # (Auto) 0.10 K/uL (0.00-0.02) H 08/19/20 08:22 Absolute Nucleated RBC 0.00 K/uL (0-0) 08/15/20 05:25 Nucleated RBC % (auto) 0.0 % 08/15/20 05:25 ESR 9 mm/hr (0-21) 08/13/20 20:39 PT 14.7 Seconds (9.0-12.0) H 08/13/20 20:39 INR 1.4 (0.9-1.1) H 08/13/20 20:39 APTT 32.5 Seconds (21.0-31.0) H 08/13/20 20:39 PTT Ratio 1.2 08/13/20 20:39 ABG pH 7.46 (7.35-7.45) H 08/18/20 10:30 ABG pCO2 25 mmHg (35-46) L 08/18/20 10:30 ABG pO2 46 mmHg (80-95) L 08/18/20 10:30 ABG HCO3 17 mmol/L (19-24) L 08/18/20 10:30 ABG O2 Saturation 83.6 % (90-95) L 08/18/20 10:30 ABG Base Excess -4.8 mEq/L (-9-1.8) 08/18/20 10:30 Pawel Test Pos (Pos) 08/18/20 10:30 VBG pH 7.37 (7.36-7.41) 08/13/20 20:39 VBG pCO2 38 mmHg (38-50) 08/13/20 20:39 VBG pO2 25 mmHg 08/13/20 20:39 VBG HCO3 22 mmol/L 08/13/20 20:39 VBG O2 Saturation < 60.0 % 08/13/20 20:39 VBG Base Excess -3.1 mEq/L 08/13/20 20:39 Barometric Pressure 736.3 mm/Hg 08/18/20 10:30 Oxygen Given 10 L 08/18/20 10:30 POC Sodium 138 mmol/L (135-144) 08/13/20 20:19 Sodium 141 mmol/L (136-145) 08/19/20 08:22 POC Potassium 2.7 mmol/L (3.3-5.0) L 08/13/20 20:19 Potassium 4.5 mmol/L (3.5-5.1) 08/19/20 08:22 POC Chloride 106 mmol/L (101-112) 08/13/20 20:19 Chloride 114 mmol/L (98-107) H 08/19/20 08:22 Carbon Dioxide 22 mmol/L (21-32) 08/19/20 08:22 POC Total CO2 20 mmol/L (24-31) L 08/13/20 20:19 Anion Gap 5.0 (3-11) 08/19/20 08:22 POC Anion Gap 15.0 mmol/L (16-25) L 08/13/20 20:19 POC BUN 28 mg/dl (7-18) H 08/13/20 20:19 BUN 14 mg/dl (7-18) 08/19/20 08:22 Creatinine 0.61 mg/dl (0.6-1.2) 08/19/20 08:22 POC Creatinine 0.8 mg/dl (0.6-1.3) 08/13/20 20:19 Est Cr Clr Drug Dosing 55.8 ml/min 08/19/20 08:22 Est GFR ( Amer) 95.8 08/19/20 08:22 Est GFR (Non-Af Amer) 82.7 08/19/20 08:22 BUN/Creatinine Ratio 22.6 (10-20) H 08/19/20 08:22 Glucose 96 mg/dl (70-99) 08/19/20 08:22 POC Glucose 127 mg/dl (70-99) H 08/17/20 12:13 POC Glucose (other) 121 mg/dl (70-99) H 08/13/20 20:19 Lactate 1.4 mmol/L (0.4-2.0) 08/14/20 02:13 Calcium 8.4 mg/dl (8.5-10.1) L 08/19/20 08:22 POC Ioniz Calcium Kd 0.89 mmol/l (1.12-1.32) L 08/13/20 20:19 Phosphorus 2.9 mg/dl (2.5-4.9) 08/14/20 02:13 Magnesium 2.4 mg/dl (1.8-2.4) 08/14/20 02:13 Ferritin 551.4 ng/ml (8-388) H 08/13/20 20:39 Total Bilirubin 0.8 mg/dl (0.2-1) 08/14/20 02:13 AST 28 U/L (15-37) 08/14/20 02:13 ALT 18 U/L (12-78) 08/14/20 02:13 Alkaline Phosphatase 91 U/L (45-117) 08/14/20 02:13 Lactate Dehydrogenase 277 U/L (84-246) H 08/13/20 20:39 Total Creatine Kinase 74 U/L (26-192) 08/13/20 20:39 Total Creatine Kinase Cancelled 08/13/20 20:39 CK-MB (CK-2) 4.1 ng/ml (0.5-3.6) H 08/13/20 20:39 CK-MB (CK-2) Cancelled 08/13/20 20:39 CK/CKMB % Calc 5.5 (0-3.0) H 08/13/20 20:39 CK/CKMB % Calc Cancelled 08/13/20 20:39 Troponin I 0.093 ng/ml (0-0.045) H* 08/14/20 07:50 C-Reactive Protein 1.10 mg/dl (0-0.29) H 08/13/20 20:39 Total Protein 5.1 gm/dl (6.4-8.2) L 08/14/20 02:13 Albumin 2.3 gm/dl (3.4-5.0) L 08/14/20 02:13 Globulin 2.8 gm/dl (2.5-4.0) 08/14/20 02:13 Albumin/Globulin Ratio 0.8 (0.9-2) L 08/14/20 02:13 Vitamin B12 716 pg/ml (193-986) 08/14/20 02:13 Folate > 20.00 ng/ml (>5.38) 08/14/20 02:13 Procalcitonin 0.08 ng/ml (0-0.5) 08/13/20 20:39 Random Cortisol 45.69 mcg/dl 08/13/20 20:39 Urine Color [place] 08/13/20 21:24 Urine Appearance Cloudy (Clear) A 08/13/20 21:24 Urine pH 6.5 (4.5-7.5) 08/13/20 21:24 Ur Specific [place] 1.010 (1.000-1.030) 08/13/20 21:24 Urine Protein 2+ (Negative) H 08/13/20 21:24 Urine Glucose (UA) Negative (Negative) 08/13/20 21:24 Urine Ketones Trace (Negative) H 08/13/20 21:24 Urine Blood 2+ (Negative) H 08/13/20 21:24 Urine Nitrite Negative (Negative) 08/13/20 21:24 Urine Bilirubin 2+ (Negative) H 08/13/20 21:24 Urine Urobilinogen Positive (Negative) H 08/13/20 21:24 Ur Leukocyte Esterase 2+ (Negative) H 08/13/20 21:24 Urine RBC 10-30 /hpf (0-4) H 08/13/20 21:24 Urine WBC >30 /hpf (0-5) H 08/13/20 21:24 Ur Epithelial Cells >30 /lpf (0-5) H 08/13/20 21:24 Ur Renal Epithelial Cell 5-10 /lpf (0-5) H 08/13/20 21:24 Amorphous Sediment Present (None Prsent) A 08/13/20 21:24 Urine Bacteria 2+ (Negative) H 08/13/20 21:24 Hyaline Casts 10-30 /lpf (0-5) H 08/13/20 21:24 Urine Mucus Present (None Prsent) A 08/13/20 21:24 Stool Occult Bld Scrn Positive (Negative) A 08/14/20 14:05 Stl C. diff Tox B Gene Negative Cdiff Gene (Neg) 08/14/20 14:05 COVID-19 Eval Order CovFluRsv at [facility] 08/13/20 19:49 SARS-CoV-2 (PCR) NEGATIVE (Negative) 08/13/20 19:49 Influenza Type A (PCR) Negative (Neg) 08/13/20 19:49 Influenza Type B (PCR) Negative (Neg) 08/13/20 19:49 RSV (RT-PCR) Negative (Neg) 08/13/20 19:49 Blood Type O Positive 08/13/20 20:39 Antibody Screen NEGATIVE 08/13/20 20:39 Resident Activity Tracking Resident Involvement: Resident Care Provided Care Provided: Adult Hospital Medicine
[2020-08-19] MEDS: FOLIC ACID 1 MG TAB PO SCH (10:43)
[2020-08-19] MEDS: MAGNESIUM OXIDE 400 MG TAB PO SCH ×2 (10:43→20:13)
[2020-08-19] MEDS: LOSARTAN POTASSIUM 50 MG TAB PO SCH (10:43)
[2020-08-19] MEDS: bisacodyL 10 MG SUPP PR SCH (10:43)
[2020-08-19] MEDS: POLYETHYLENE (MIRALAX) 17 GM PACK PO SCH ×3 (10:44→20:13)
[2020-08-19] MEDS: MULTIVITAMIN TAB PO SCH (10:44)
[2020-08-19] MEDS: PANTOprazole 40 MG TAB PO SCH (10:44)
[2020-08-19] MEDS: THIAMINE HCL 100 MG TAB PO SCH (10:45)
[2020-08-19] MEDS: CHOLECALCIFEROL 1,000 UNITS 25 MCG TAB PO SCH (10:45)
[2020-08-19] MEDS: DICLOFENAC SOD 1% GEL 100 GM TUBE EXT SCH ×4 (11:13→21:12)
[2020-08-19] MEDS: SENNA 8.6 MG TAB PO SCH (11:14)
[2020-08-19] MEDS ORDERED: OPTIRAY 320 125ml IV ONE (15:29)
--- NOTE | 2020-08-19 15:35 | CT Scan Report ---
CT ANGIOGRAM OF THE CHEST CLINICAL HISTORY: Hypoxia. Possible pulmonary embolism. COMPARISON STUDY: 08/13/2020, chest x-ray dated 08/18/2020 TECHNIQUE: Following the IV administration of 120 mL of Optiray-320, CT angiogram of the thorax was p erformed from the thoracic inlet to the lung bases utilizing the pulmonary embolus protocol. Images a re reviewed in the axial, sagittal, and coronal planes. IV contrast was administered without complica tion. MIP imaging was performed. A dose lowering technique was utilized adhering to the principles o f ALARA. CT DOSE: 252.65 mGycm FINDINGS: No pathologically enlarged axillary mediastinal or hilar lymph nodes were visualized. There was no evidence of thoracic aortic dilatation. There are no pulmonary artery filling defects to indicate acute pulmonary embolism. Examination is ho wever significantly degraded due to respiratory motion artifact. There are small bilateral pleural effusions, and new finding when compared the prior visualized porti ons the upper abdomen reveal multiple air-fluid levels within the visualized bowel. Study. There is a new 5 mm subpleural opacity within the right upper lobe. Given that this was not visualize d 6 days prior, this is highly unlikely to represent a neoplastic process. There is no focal pulmonar y consolidation IMPRESSION: 1. Motion compromised study. 2. No evidence of acute pulmonary embolism given the technical limitations of the examination 3. Interval development of small bilateral pleural effusions ACT 112: Negative or not required by law. Electronically signed by: Heath Hwang M.D. 08/19/2020 3:34 PM
--- NOTE | 2020-08-19 17:37 | Billing Data ---
Date of Service August 19, 2020 Coding Level of Care Code 69414 Subseq Hosp Care Lvl 3
--- NOTE | 2020-08-19 18:43 | Urology Progress Note ---
Date of Service August 19, 2020 Assessment & Plan Admission and Anticipated Discharge Date Admission Date: August 13, 2020 Subjective Asked to see patient who they were unable to place a Redd catheter after her Redd was removed When I saw the patient she had an indwelling Redd that was draining clear yellow urine. I spoke with the nurse taking care of her he was able to get the catheter in without any difficulty. Results & Data ([facility]) Vital Signs (Past 12 Hours) Vital Signs Temp Pulse Pulse Resp BP Pulse Ox 08/19/20 16:00 81 08/19/20 15:32 36.8 C 75 18 95/63 L 98 08/19/20 11:29 36.5 C 81 16 90/60 L 91 08/19/20 08:40 36.7 C 83 20 101/66 90 08/19/20 08:00 76 PG Care Time/CCT Total # of Minutes Spent Total Time Spent with Patient: Total time spent is greater than 50% in coordination of care (as documented) at patient's floor/unit and/or counseling patient: Coding Level of Care Code None
[2020-08-19] MEDS: MIRTAZAPINE TAB 15 MG TAB PO SCH (20:13)
[2020-08-19] MEDS: RIVAROXABAN 15 MG TAB PO SCH (20:13)
[2020-08-20 08:04] LABS: Basophils # (auto) 0.02 K/uL (0-0.2); Basophils % (auto) 0.2 %; Eosinophils # (auto) 0.09 K/uL (0-0.5); Eosinophils % (auto) 0.9 %; Hematocrit (blood only) 33.7 % (37-47); Hemoglobin 11.3 g/dL (12.0-16.0); Lymphocytes # (auto) 2.29 K/uL (1.2-3.4); Lymphocytes % (auto) 21.9 %; Mean Corpuscular Hemoglobin 34.7 pg (25-34); Mean Corpuscular Hgb Conc 33.5 g/dL (32-36); Mean Corpuscular Volume 103.4 fL (80-100); Mean Platelet Volume 9.5 fL (7.4-10.4); Monocytes # (auto) 0.73 K/uL (0.11-0.59); Neutrophils # (auto) 7.25 K/uL (1.4-6.5); Platelet Count 237 K/uL (130-400); RDW Coefficient of Variation 18.5 % (11.5-14.5); RDW Standard Deviation 68.6 fL (36.4-46.3); Red Blood Count 3.26 M/uL (4.2-5.4); White Blood Count 10.48 K/uL (4.8-10.8)
--- NOTE | 2020-08-20 08:22 | XRay Report ---
KUB HISTORY: ileus, abdominal distension COMPARISON: KUB 08/19/2020. FINDINGS: Mildly dilated gas-filled loops of large and small bowel are again seen throughout the abdo men. This has improved in the interval. Prior cholecystectomy. Bilateral total hip arthroplasties. N o renal calculi. No ureteral calculi. No pneumoperitoneum or pneumatosis. Small sliver of gas within the retrocardiac location favors the esophagus. IMPRESSION: Interval improvement in the mild gaseous distention of the large and small bowel consistent with an i leus. ACT 112: Negative or not required by law. Electronically signed by: Danny Burnette M.D. 08/20/2020 8:21 AM
[2020-08-20] MEDS: SENNA 8.6 MG TAB PO SCH (08:49)
[2020-08-20] MEDS: MULTIVITAMIN TAB PO SCH (08:53)
[2020-08-20] MEDS: THIAMINE HCL 100 MG TAB PO SCH (08:53)
[2020-08-20] MEDS: LOSARTAN POTASSIUM 50 MG TAB PO SCH (08:53)
[2020-08-20] MEDS: CHOLECALCIFEROL 1,000 UNITS 25 MCG TAB PO SCH (08:53)
[2020-08-20] MEDS: bisacodyL 10 MG SUPP PR SCH (08:53)
[2020-08-20] MEDS: PANTOprazole 40 MG TAB PO SCH (08:53)
[2020-08-20] MEDS: FOLIC ACID 1 MG TAB PO SCH (08:53)
[2020-08-20] MEDS: D5W AND 1/2NSS + 20MEQ KCL 20 MEQ/1,000 ML BAG IV SCH ×2 (08:55→18:18)
[2020-08-20] MEDS: DICLOFENAC SOD 1% GEL 100 GM TUBE EXT SCH ×5 (08:56→19:59)
--- NOTE | 2020-08-20 09:57 | Hospitalist Progress Note ---
Date of Service August 20, 2020 Assessment & Plan (1) Abdominal pain: 85 yo F PMHx CVA, HTN, osteopenia, COREY, GERD, and long-term anticoagulation on rivaroxaban who is admitted for stercoral colitis and acute hypoxic respiratory failure. Acute hypoxic respiratory failure on BiPAP 2/2 diaphragmatic compromise from severe stool impaction: - improving breathing status - CXR negative for PNA, PTX. CTA Chest +/- small chronic pulmonary emboli on xarelto - increased O2 req most likely 2/2 atelectasis - incentive spirometer to open lungs and decrease atelectasis - COVID negative Stercoral colitis and fecal retention: - managing as SBO + constipation - clear liquid diet, continue dulcolax suppositories and fleet enemas BID PRN - KUB improving this AM Hypoglycemia - w/o dx DM2 or insulin use - most likely deficiency of nutrient stores in hepatic system - fluids switched to D5 1/2NS +K - considering TPN going forward if able to get bowel movement today - IJ in place for venous access. peripheral 22 able to give TPN however would not last long Severe protein calorie malnutrition: - Patient with poor oral intake and no appetite x 1 month. - Nutrition: minced/moist diet with Boost GC TIDM - remeron 15 mg QHS, 2.5 mg Marinol TID 1 hr before meals for appetite stimulation - PT/OT: SNF placement Chronic back pain: - Tylenol and K pad as needed. DVT PPX: Xarelto FEN/GI: minced, easy to chew diet with Boost GC supplement. Code Status: Full Code Dispo:Med surg w/ tele. tx to [facility] when medically stable. Admission and Anticipated Discharge Date Admission Date: August 13, 2020 Supervising Physician Co-Signing Physician Notes I personally examined the patient and verified all phipps points of history and exam, discussed case, and agree with decision making with Dr Ronaldo raza feeling better breathing better just very tired vitals noted, heent nc at mmm abd soft only mildly distended not nearly as tender no guarding no rebound. wound images noted as well constipation/fecal impaction - finally improving post disimpaction x2 and aggressive bowel regimen - doing better hypoxia - after extensive review, appears that this is almost certainly from shallow breathing from belly issues. coached on incentive spirometry, encouraged to use 5x/hr, asked pt/nursing to ensure OOB --> now doing better sacral ulcers - ongoing local wound care otherwise as above, improving, med/surg today possibly rehab tomorrow Subjective feeling a little better this morning. still generally weak and having pain on sacrum with ulcer, however bowel movements have slowed. able to drink broth and work with pt. no complaints. Review of Systems Constitutional: no fever, no chills, no body aches and no fatigue Respiratory: + dyspnea; no cough Cardiovascular: no chest pain and no edema Gastrointestinal: + diarrhea/loose stools; no abdominal pain, no nausea, no vomiting and no constipation Physical Exam Physical Exam: Const: thin, frail elderly woman laying back in bed, considerably more comfortable Card: RRR, no murmurs rubs or gallops PUlm:breathing notably better on 3L NC with resolving ileus and abdominal distension Abd: abdominal distension improved, softer, less painful though still with some pain Extremities: 2+ pitting edema to knee on left leg, right leg no edema Results & Data Results & Data ([facility]) Vital Signs (Past 12 Hours) Vital Signs Temp Pulse Pulse Resp BP Pulse Ox 08/20/20 07:06 36.4 C L 70 19 104/55 L 99 08/20/20 03:17 36.6 C 73 20 94/60 L 99 08/20/20 00:28 70 08/20/20 00:14 36.6 C 88 20 123/72 97 Resident Activity Tracking Resident Involvement: Resident Care Provided Care Provided: Adult Hospital Medicine
--- NOTE | 2020-08-20 18:10 | Billing Data ---
Date of Service August 20, 2020 Coding Level of Care Code 48988 Subseq Hosp Care Lvl 3
[2020-08-20] MEDS: MIRTAZAPINE TAB 15 MG TAB PO SCH (19:55)
[2020-08-20] MEDS: RIVAROXABAN 15 MG TAB PO SCH (19:55)
[2020-08-21] MEDS: D5W AND 1/2NSS + 20MEQ KCL 20 MEQ/1,000 ML BAG IV SCH ×3 (03:50→22:27)
[2020-08-21] MEDS: LOSARTAN POTASSIUM 50 MG TAB PO SCH (09:43)
[2020-08-21] MEDS: bisacodyL 10 MG SUPP PR SCH ×2 (09:45→09:57)
[2020-08-21] MEDS: MULTIVITAMIN TAB PO SCH (09:57)
[2020-08-21] MEDS: FOLIC ACID 1 MG TAB PO SCH (09:57)
[2020-08-21] MEDS: SENNA 8.6 MG TAB PO SCH (09:57)
[2020-08-21] MEDS: PANTOprazole 40 MG TAB PO SCH (09:57)
[2020-08-21] MEDS: THIAMINE HCL 100 MG TAB PO SCH (09:58)
[2020-08-21] MEDS: DICLOFENAC SOD 1% GEL 100 GM TUBE EXT SCH ×4 (09:58→20:50)
[2020-08-21] MEDS: CHOLECALCIFEROL 1,000 UNITS 25 MCG TAB PO SCH (09:58)
--- NOTE | 2020-08-21 10:53 | Discharge Summary ---
Date of Service August 21, 2020 Admission HPI Per Admitting Provider Katherine is an 85-year-old female with a past medical history of CVA, hypertension, osteopenia, carotid artery stenosis, GERD, and long-term anticoagulation on rivaroxaban who presents with abdominal pain by ambulance. She was seen at the bedside with her daughter. Her daughter reports that she has had about 1 month of worsening abdominal pain and weakness. They report that she has had minimal bowel movements with sometimes just a smear in her depends. She has not had any chest pain, but has had steady slowly increasing shortness of breath. He has felt globally weaker and has had difficulty ambulating in the last month. No slurred speech, no facial asymmetry, she has chronic left upper and lower extremity asymmetric weakness compared to the right. No sudden increase in focal neurologic deficits, but seem to be globally weak. Patient denies vomiting, but endorses decreased appetite and nausea. Endorses abdominal distention. Denies fever/chills/sweats/palpitations. Denies headache. Endorses chronic left lower extremity and minimal right lower extremity swelling. History of PFO, no history of heart failure. On admission to the ER CT shows profound distention with high stool burden with upward pressure causing diaphragmatic compromise. She was manually disimpacted in the emergency department. No nausea/vomiting/emesis following manual disimpaction. Medical History: Reviewed Surgical History: Reviewed Family History: Reviewed Allergies: No known drug allergies Social History: Lives in an in-law suite at her son's who is working from home. No sick contacts at home. Denies alcohol, tobacco, and recreational drug use. CODE STATUS: Full code, discussed at bedside with patient and patient's daughter. Discharge Data Allergies Allergy/AdvReac Type Severity Reaction Status Date / Time sulfamethoxazole Allergy Mild MOUTH SORES Verified 08/13/20 20:07 trimethoprim Allergy Mild MOUTH SORES Verified 08/13/20 20:07 morphine AdvReac Intermediate HEART Verified 08/13/20 20:07 PALPITATIONS,CHEST TIGHTNESS,VOMITING Opioid Analgesics AdvReac Intermediate HEART Uncoded 08/13/20 20:07 PALPITATIONS, CHEST TIGHTNESS, VOMITING Consultations 08/13/20 21:01 ED Decision to Admit Stat 08/19/20 16:01 Consult Urology Routine Ordered Studies 08/13/20 19:36 CT abd pelvis IV con only Stat CT angio chest PE protocol Stat 08/19/20 14:13 CT angio chest PE protocol Routine Hospital Course (1) Abdominal pain: 85 yo F PMHx CVA, HTN, osteopenia, COREY, GERD, and long-term anticoagulation on rivaroxaban who is admitted for stercoral colitis and acute hypoxic respiratory failure. Acute hypoxic respiratory failure on BiPAP 2/2 diaphragmatic compromise from severe stool impaction: - improving breathing status - CXR negative for PNA, PTX. CTA Chest +/- small chronic pulmonary emboli on xarelto - increased O2 req most likely 2/2 atelectasis - incentive spirometer to open lungs and decrease atelectasis - COVID negative Stercoral colitis and fecal retention: - managing as SBO + constipation - clear liquid diet, continue dulcolax suppositories and fleet enemas BID PRN - KUB improving this AM Hypoglycemia - w/o dx DM2 or insulin use - most likely deficiency of nutrient stores in hepatic system - fluids switched to D5 1/2NS +K - considering TPN going forward if able to get bowel movement today - IJ in place for venous access. peripheral 22 able to give TPN however would not last long Severe protein calorie malnutrition: - Patient with poor oral intake and no appetite x 1 month. - Nutrition: minced/moist diet with Boost GC TIDM - remeron 15 mg QHS, 2.5 mg Marinol TID 1 hr before meals for appetite stimulation - PT/OT: SNF placement Chronic back pain: - Tylenol and K pad as needed. DVT PPX: Xarelto FEN/GI: minced, easy to chew diet with Boost GC supplement. Code Status: Full Code Dispo:Med surg w/ tele. tx to [facility] when medically stable. Discharge Plan Discharge Items Reason For Visit: STERCORAL COLITIS, AHRF Discharge Diagnosis: Stool impaction, Hypoxia Activity: Resume your previous activity Non-emergency contact: Primary Care Provider Call non-emergency contact if: you have any medication questions and your pain is concerning for you Follow-up/Referrals: Tomas Young MD [Primary Care Provider] - Diet: Regular Diet Texture: Dental soft (bite-sized) Diet Comment: Make sure you are drinking Ensure or boost with meals. Addtl Attending Provider Instructions: You were evaluated in the hospital for shortness of breath that was secondary to pressure in your stomach from retained stool. Some of this stool was manually removed, and you were placed on a bowel regimen to help remove the remaining blockage. You were also noted to have a poor appetite and decreased strength due to low calorie intake. It is very important for you to eat more calorie rich foods and Ensure supplements to maintain your weight and strength. Physical therapy was able to work with you and recommended . Pending Studies at Discharge: No Medications and DC Order Prescriptions: New mirtazapine 15 mg Tablet 15 mg PO HS Qty: 30 RF: 0 magnesium oxide 400 mg (241.3 mg magnesium) Tablet 400 mg PO BID Qty: 60 RF: 0 dronabinol [Marinol] 2.5 mg capsule 2.5 mg PO TID@0700,1100,1600 30 Days RF: 0 Continued folic acid 1 mg tablet 1 mg PO DAILY Qty: 90 RF: 3 Xarelto 15 mg tablet 15 mg PO QPM Qty: 90 RF: 3 omeprazole 20 mg capsule,delayed release(DR/EC) 20 mg PO BID Qty: 180 RF: 3 multivitamin [Daily Multi-Vitamin] Tablet 1 tab PO DAILY RF: 0 diclofenac sodium 1 % gel 4 g topical QID Qty: 100 RF: 5 acetaminophen 500 mg tablet 1,000 mg PO DAILY RF: 0 cholecalciferol (vitamin D3) 1,000 unit capsule 1,000 units PO DAILY RF: 0 Discontinued losartan 50 mg tablet 50 mg PO DAILY Qty: 90 RF: 3 Admission Data Admit Date/Time: 08/13/20 22:32 Attending Provider: Ryan Ibrahim Admit Provider: Willian Mendoza Primary Care Provider: Tomas Young Other Providers: Mabel Higgins ; Lanny Lozano ; [facility] ; Skylar Lucas ; Jarek Dey
[2020-08-21] MEDS: SUCRALFATE 1 GM/10 ML UDC PO SCH ×3 (14:09→20:50)
[2020-08-21 14:33] LABS: Base Excess ABG -5.5 mEq/L (-9-1.8); HCO3 ABG 17 mmol/L (19-24); Oxygen Saturation ABG 86.8 % (90-95); PCO2 ABG 25 mmHg (35-46); PO2 ABG 52 mmHg (80-95); pH ABG 7.45 (7.35-7.45)
[2020-08-21 14:34] LABS: Allen Test Pos (Pos)
--- NOTE | 2020-08-21 14:35 | XRay Report ---
XR chest 1V portable CLINICAL HISTORY: hypoxia COMPARISON STUDY: 08/18/2020 FINDINGS: The right-sided central venous catheter remains unchanged in position. The nasogastric tube has been removed. There is no failure. There is a retrocardiac opacity possibly representing a hiata l hernia. There are small pleural effusions with associated basilar opacities likely atelectatic.[ IMPRESSION: 1. Small pleural effusions with associated basilar opacities, likely atelectatic ACT 112: Negative or not required by law. Electronically signed by: Heath Hwang M.D. 08/21/2020 2:34 PM
--- NOTE | 2020-08-21 14:43 | Hospitalist Progress Note ---
Date of Service August 21, 2020 Assessment & Plan (1) Abdominal pain: 85 yo F PMHx CVA, HTN, osteopenia, COREY, GERD, and long-term anticoagulation on rivaroxaban who is admitted for stercoral colitis and acute hypoxic respiratory failure. Acute hypoxic respiratory failure on NC supplemental O2 2/2 diaphragmatic compromise from severe stool impaction: - improving breathing status - patient saturates well when taking deep breaths on room air or 2-3 L NC depe nding on positioning. - she frequently will "forget" to take deeper breaths and requires prompting that she can and should take deeper breaths - encourage use of incentive spirometer 4-5 times an hour Stercoral colitis and fecal retention: - managing as SBO + constipation - clear liquid diet advance as tolerated - currently on dulcolax suppository and fleet enemas. Resume miralax and magox instead of suppositories as she tolerates more PO intake. - if worsening respiratory status and decreased bowel movements, recommend soap bobbi enema to prevent another compaction. Severe protein calorie malnutrition: - Patient with poor oral intake and no appetite x 1 month. - Nutrition: minced/moist diet with Boost GC TIDM. Currently clear liquid but has ability to eat regular food. Is resistant to "being able to swallow" even though her swallowing function is intact. - remeron 15 mg QHS, 2.5 mg Marinol TID 1 hr before meals for appetite stimulati on - Advance diet as tolerate/needed Weakness secondary to severe protein calorie malnutrition - needs to continue working with PT to regain strength. patient frequently refu ses stating she is too weak, but needs to participate rather than laying in bed all day - recommend assistance with walking, frequent turning, out of bed to chair with assistance multiple times a day Chronic back pain: - Tylenol and K pad as needed. DVT PPX: Xarelto FEN/GI: minced, easy to chew diet with Boost GC supplement. Code Status: Full Code Dispo:Med surg . tx to [facility] when medically stable. Admission and Anticipated Discharge Date Admission Date: August 13, 2020 Supervising Physician Co-Signing Physician Notes I personally examined the patient and verified all phipps points of history and exam, discussed case, and agree with decision making with Dr Higgins. feeling tired. doesn't want to eat, but stomach doesn't seem to hurt as much as before. vitals noted nad heent nc at mmm breathing unlabored no accessory muscles good effort skin no rashes no pallor or icterus abd soft constipation/fecal impaction - finally improving post disimpaction x2 and aggressive bowel regimen - doing better hypoxia - after extensive review, appears that this is almost certainly from shallow breathing from belly issues. coached on incentive spirometry, encouraged to use 5x/hr, asked pt/nursing to ensure OOB --> now doing better sacral ulcers - ongoing local wound care otherwise as above, improving, med/surg today possibly rehab tomorrow Subjective does not want to move this morning. repeatedly saying she has trouble lifting her head off the pillow while lifting her head. poorly responsive to encouragement to breath deeper/lift her body. Review of Systems Constitutional: + body aches, + fatigue and + weakness Respiratory: + pain on inspiration; no cough and no dyspnea Cardiovascular: no chest pain, no dyspnea on exertion, no palpitations and no edema Physical Exam Physical Exam: Const: thin, frail elderly woman laying back in bed, considerably more comfortable Card: RRR, no murmurs rubs or gallops PUlm:breathing notably better on 3L NC with resolving ileus and abdominal distension Abd: abdominal distension much improved, softer, less painful Results & Data Results & Data ([facility]) Vital Signs (Past 12 Hours) Vital Signs Temp Pulse Resp BP Pulse Ox 08/21/20 13:10 85 93/65 L 93 08/21/20 13:00 83 L 08/21/20 07:22 36.6 C 83 16 97/61 L 98 Laboratory Results WBC 10.48 K/uL (4.8-10.8) 08/20/20 07:41 RBC 3.26 M/uL (4.2-5.4) L 08/20/20 07:41 Hgb 11.3 g/dL (12.0-16.0) L 08/20/20 07:41 POC Hgb 12.9 g/dl (12.0-16.0) 08/13/20 20:19 Hct 33.7 % (37-47) L 08/20/20 07:41 POC Hct 38 % (37-47) 08/13/20 20:19 MCV 103.4 fL (80-100) H 08/20/20 07:41 MCH 34.7 pg (25-34) H 08/20/20 07:41 MCHC 33.5 g/dL (32-36) 08/20/20 07:41 RDW Std Deviation 68.6 fL (36.4-46.3) H 08/20/20 07:41 RDW Coeff of Steve 18.5 % (11.5-14.5) H 08/20/20 07:41 Plt Count 237 K/uL (130-400) 08/20/20 07:41 MPV 9.5 fL (7.4-10.4) 08/20/20 07:41 Immature Gran % (Auto) 1.0 % 08/20/20 07:41 Neut % (Auto) 69.0 % 08/20/20 07:41 Lymph % (Auto) 21.9 % 08/20/20 07:41 [place] % (Auto) 7.0 % 08/20/20 07:41 Eos % (Auto) 0.9 % 08/20/20 07:41 Baso % (Auto) 0.2 % 08/20/20 07:41 Neut # (Auto) 7.25 K/uL (1.4-6.5) H 08/20/20 07:41 Lymph # (Auto) 2.29 K/uL (1.2-3.4) 08/20/20 07:41 [place] # (Auto) 0.73 K/uL (0.11-0.59) H 08/20/20 07:41 Eos # (Auto) 0.09 K/uL (0-0.5) 08/20/20 07:41 Baso # (Auto) 0.02 K/uL (0-0.2) 08/20/20 07:41 Immature Gran # (Auto) 0.10 K/uL (0.00-0.02) H 08/20/20 07:41 Absolute Nucleated RBC Cancelled 08/20/20 07:14 Nucleated RBC % (auto) Cancelled 08/20/20 07:14 Neutrophils % (Manual) Cancelled 08/20/20 07:14 Band Neutrophils % Cancelled 08/20/20 07:14 Lymphocytes % (Manual) Cancelled 08/20/20 07:14 Prolymphocyte % Cancelled 08/20/20 07:14 Reactive Lymphs % (Man) Cancelled 08/20/20 07:14 Monocytes % (Manual) Cancelled 08/20/20 07:14 Eosinophils % (Manual) Cancelled 08/20/20 07:14 Basophils % (Manual) Cancelled 08/20/20 07:14 Metamyelocytes % (Man) Cancelled 08/20/20 07:14 Myelocytes % (Man) Cancelled 08/20/20 07:14 Promyelocytes % (Man) Cancelled 08/20/20 07:14 Blast Cells % (Manual) Cancelled 08/20/20 07:14 Plasma Cell % (Manual) Cancelled 08/20/20 07:14 Other Cells % Cancelled 08/20/20 07:14 Nucleated RBC % Cancelled 08/20/20 07:14 Neutrophils # (Manual) Cancelled 08/20/20 07:14 Band Neutrophils # Cancelled 08/20/20 07:14 Total Absolute Neuts Cancelled 08/20/20 07:14 Lymphocytes # (Manual) Cancelled 08/20/20 07:14 Prolymphocyte # Cancelled 08/20/20 07:14 Reactive Lymphs # Cancelled 08/20/20 07:14 Total Abs Lymphocytes Cancelled 08/20/20 07:14 Monocytes # (Manual) Cancelled 08/20/20 07:14 Eosinophils # (Manual) Cancelled 08/20/20 07:14 Basophils # (Manual) Cancelled 08/20/20 07:14 Metamyelocytes # (Man) Cancelled 08/20/20 07:14 Myelocytes # (Manual) Cancelled 08/20/20 07:14 Promyelocytes # (Man) Cancelled 08/20/20 07:14 Blast Cells # (Man) Cancelled 08/20/20 07:14 Plasma Cell # (Manual) Cancelled 08/20/20 07:14 Other Cells # Cancelled 08/20/20 07:14 Nucleated RBCs # (Man) Cancelled 08/20/20 07:14 Hypersegmented Neuts Cancelled 08/20/20 07:14 Hyposegmented Neuts Cancelled 08/20/20 07:14 Hypogranular Neuts Cancelled 08/20/20 07:14 Large Granular Lymphs Cancelled 08/20/20 07:14 # Lrg Granular Lymphs Cancelled 08/20/20 07:14 Hairy Cells Cancelled 08/20/20 07:14 Smudge Cells Cancelled 08/20/20 07:14 Toxic Granulation Cancelled 08/20/20 07:14 Toxic Vacuolation Cancelled 08/20/20 07:14 Dohle Bodies Cancelled 08/20/20 07:14 Alberto Rods Cancelled 08/20/20 07:14 Platelet Estimate Cancelled 08/20/20 07:14 Hypogranular Platelets Cancelled 08/20/20 07:14 Clumped Platelets Cancelled 08/20/20 07:14 Giant Platelets Cancelled 08/20/20 07:14 Platelet Satelliting Cancelled 08/20/20 07:14 RBC Morphology Cancelled 08/20/20 07:14 Polychromasia Cancelled 08/20/20 07:14 Hypochromasia Cancelled 08/20/20 07:14 Poikilocytosis Cancelled 08/20/20 07:14 Basophilic Stippling Cancelled 08/20/20 07:14 Anisocytosis Cancelled 08/20/20 07:14 Microcytosis Cancelled 08/20/20 07:14 Macrocytosis Cancelled 08/20/20 07:14 Spherocytes Cancelled 08/20/20 07:14 Pappenheimer Bodies Cancelled 08/20/20 07:14 Sickle Cells Cancelled 08/20/20 07:14 Target Cells Cancelled 08/20/20 07:14 Tear Drop Cells Cancelled 08/20/20 07:14 Ovalocytes Cancelled 08/20/20 07:14 Stomatocytes Cancelled 08/20/20 07:14 Abdul-Point Blank Bodies Cancelled 08/20/20 07:14 Echinocytes Cancelled 08/20/20 07:14 Acanthocytes (Spur) Cancelled 08/20/20 07:14 Rouleaux Cancelled 08/20/20 07:14 RBC Agglutinates Cancelled 08/20/20 07:14 Schistocytes Cancelled 08/20/20 07:14 RBC Morph Comment Cancelled 08/20/20 07:14 ESR 9 mm/hr (0-21) 08/13/20 20:39 Sezary Cell Cancelled 08/20/20 07:14 PT 14.7 Seconds (9.0-12.0) H 08/13/20 20:39 INR 1.4 (0.9-1.1) H 08/13/20 20:39 APTT 32.5 Seconds (21.0-31.0) H 08/13/20 20:39 PTT Ratio 1.2 08/13/20 20:39 ABG pH 7.45 (7.35-7.45) 08/21/20 14:15 ABG pCO2 25 mmHg (35-46) L 08/21/20 14:15 ABG pO2 52 mmHg (80-95) L 08/21/20 14:15 ABG HCO3 17 mmol/L (19-24) L 08/21/20 14:15 ABG O2 Saturation 86.8 % (90-95) L 08/21/20 14:15 ABG Base Excess -5.5 mEq/L (-9-1.8) 08/21/20 14:15 Pawel Test Pos (Pos) 08/21/20 14:15 VBG pH 7.37 (7.36-7.41) 08/13/20 20:39 VBG pCO2 38 mmHg (38-50) 08/13/20 20:39 VBG pO2 25 mmHg 08/13/20 20:39 VBG HCO3 22 mmol/L 08/13/20 20:39 VBG O2 Saturation < 60.0 % 08/13/20 20:39 VBG Base Excess -3.1 mEq/L 08/13/20 20:39 Barometric Pressure 726.4 mm/Hg 08/21/20 14:15 Oxygen Given 5 08/21/20 14:15 POC Sodium 138 mmol/L (135-144) 08/13/20 20:19 Sodium 141 mmol/L (136-145) 08/19/20 08:22 POC Potassium 2.7 mmol/L (3.3-5.0) L 08/13/20 20:19 Potassium 4.5 mmol/L (3.5-5.1) 08/19/20 08:22 POC Chloride 106 mmol/L (101-112) 08/13/20 20:19 Chloride 114 mmol/L (98-107) H 08/19/20 08:22 Carbon Dioxide 22 mmol/L (21-32) 08/19/20 08:22 POC Total CO2 20 mmol/L (24-31) L 08/13/20 20:19 Anion Gap 5.0 (3-11) 08/19/20 08:22 POC Anion Gap 15.0 mmol/L (16-25) L 08/13/20 20:19 POC BUN 28 mg/dl (7-18) H 08/13/20 20:19 BUN 14 mg/dl (7-18) 08/19/20 08:22 Creatinine 0.61 mg/dl (0.6-1.2) 08/19/20 08:22 POC Creatinine 0.8 mg/dl (0.6-1.3) 08/13/20 20:19 Est Cr Clr Drug Dosing 55.8 ml/min 08/19/20 08:22 Est GFR ( Amer) 95.8 08/19/20 08:22 Est GFR (Non-Af Amer) 82.7 08/19/20 08:22 BUN/Creatinine Ratio 22.6 (10-20) H 08/19/20 08:22 Glucose 96 mg/dl (70-99) 08/19/20 08:22 POC Glucose 106 mg/dl (70-99) H 08/19/20 11:53 POC Glucose (other) 121 mg/dl (70-99) H 08/13/20 20:19 Lactate 1.4 mmol/L (0.4-2.0) 08/14/20 02:13 Calcium 8.4 mg/dl (8.5-10.1) L 08/19/20 08:22 POC Ioniz Calcium Kd 0.89 mmol/l (1.12-1.32) L 08/13/20 20:19 Phosphorus 2.9 mg/dl (2.5-4.9) 08/14/20 02:13 Magnesium 2.4 mg/dl (1.8-2.4) 08/14/20 02:13 Ferritin 551.4 ng/ml (8-388) H 08/13/20 20:39 Total Bilirubin 0.8 mg/dl (0.2-1) 08/14/20 02:13 AST 28 U/L (15-37) 08/14/20 02:13 ALT 18 U/L (12-78) 08/14/20 02:13 Alkaline Phosphatase 91 U/L (45-117) 08/14/20 02:13 Lactate Dehydrogenase 277 U/L (84-246) H 08/13/20 20:39 Total Creatine Kinase 74 U/L (26-192) 08/13/20 20:39 Total Creatine Kinase Cancelled 08/13/20 20:39 CK-MB (CK-2) 4.1 ng/ml (0.5-3.6) H 08/13/20 20:39 CK-MB (CK-2) Cancelled 08/13/20 20:39 CK/CKMB % Calc 5.5 (0-3.0) H 08/13/20 20:39 CK/CKMB % Calc Cancelled 08/13/20 20:39 Troponin I 0.093 ng/ml (0-0.045) H* 08/14/20 07:50 C-Reactive Protein 1.10 mg/dl (0-0.29) H 08/13/20 20:39 Total Protein 5.1 gm/dl (6.4-8.2) L 08/14/20 02:13 Albumin 2.3 gm/dl (3.4-5.0) L 08/14/20 02:13 Globulin 2.8 gm/dl (2.5-4.0) 08/14/20 02:13 Albumin/Globulin Ratio 0.8 (0.9-2) L 08/14/20 02:13 Vitamin B12 716 pg/ml (193-986) 08/14/20 02:13 Folate > 20.00 ng/ml (>5.38) 08/14/20 02:13 Procalcitonin 0.08 ng/ml (0-0.5) 08/13/20 20:39 Random Cortisol 45.69 mcg/dl 08/13/20 20:39 Urine Color Rosana 08/13/20 21:24 Urine Appearance Cloudy (Clear) A 08/13/20 21:24 Urine pH 6.5 (4.5-7.5) 08/13/20 21:24 Ur Specific [place] 1.010 (1.000-1.030) 08/13/20 21:24 Urine Protein 2+ (Negative) H 08/13/20 21:24 Urine Glucose (UA) Negative (Negative) 08/13/20 21:24 Urine Ketones Trace (Negative) H 08/13/20 21:24 Urine Blood 2+ (Negative) H 01/14/21 21:24 Urine Nitrite Negative (Negative) 08/13/20 21:24 Urine Bilirubin 2+ (Negative) H 08/13/20 21:24 Urine Urobilinogen Positive (Negative) H 08/13/20 21:24 Ur Leukocyte Esterase 2+ (Negative) H 08/13/20 21:24 Urine RBC 10-30 /hpf (0-4) H 08/13/20 21:24 Urine WBC >30 /hpf (0-5) H 08/13/20 21:24 Ur Epithelial Cells >30 /lpf (0-5) H 08/13/20 21:24 Ur Renal Epithelial Cell 5-10 /lpf (0-5) H 08/13/20 21:24 Amorphous Sediment Present (None Prsent) A 08/13/20 21:24 Urine Bacteria 2+ (Negative) H 08/13/20 21:24 Hyaline Casts 10-30 /lpf (0-5) H 08/13/20 21:24 Urine Mucus Present (None Prsent) A 08/13/20 21:24 Stool Occult Bld Scrn Positive (Negative) A 08/14/20 14:05 Stl C. diff Tox B Gene Negative Cdiff Gene (Neg) 08/14/20 14:05 COVID-19 Eval Order CovFluRsv at [facility] 08/13/20 19:49 SARS-CoV-2 (PCR) NEGATIVE (Negative) 08/13/20 19:49 Influenza Type A (PCR) Negative (Neg) 08/13/20 19:49 Influenza Type B (PCR) Negative (Neg) 08/13/20 19:49 RSV (RT-PCR) Negative (Neg) 08/13/20 19:49 Blood Type O Positive 08/13/20 20:39 Antibody Screen NEGATIVE 08/13/20 20:39 Resident Activity Tracking Resident Involvement: Resident Care Provided Care Provided: Adult Hospital Medicine
--- NOTE | 2020-08-21 18:29 | Billing Data ---
Date of Service August 21, 2020 Coding Level of Care Code 90536 Subseq Hosp Care Lvl 3
[2020-08-21 19:25] LABS: BUN Creatinine Ratio 15.8 (10-20); Calcium 8.1 mg/dl (8.5-10.1); Creatinine Clr Calc Pharmacy 58.7 ml/min; Est GFR (African American) 97.4; Potassium 4.5 mmol/L (3.5-5.1)
[2020-08-21] MEDS: RIVAROXABAN 15 MG TAB PO SCH (20:50)
[2020-08-21] MEDS: MIRTAZAPINE TAB 15 MG TAB PO SCH (20:51)
[2020-08-22] MEDS ORDERED: ALUMINUM/MAGNESIUM SUSP 30 ML UDC PO PRN (00:24)
[2020-08-22] MEDS ORDERED: ALUMINUM/MAGNESIUM SUSP 30 ML UDC ONE (00:35)
[2020-08-22] MEDS: D5W AND 1/2NSS + 20MEQ KCL 20 MEQ/1,000 ML BAG IV SCH (08:20)
[2020-08-22] MEDS: bisacodyL 10 MG SUPP PR SCH (08:22)
[2020-08-22] MEDS: SUCRALFATE 1 GM/10 ML UDC PO SCH (08:22)
[2020-08-22] MEDS: DICLOFENAC SOD 1% GEL 100 GM TUBE EXT SCH (08:23)
[2020-08-22] MEDS: PANTOprazole 40 MG TAB PO SCH (08:23)
[2020-08-22] MEDS: SENNA 8.6 MG TAB PO SCH (08:23)
[2020-08-22 09:27] LABS: Magnesium 1.5 mg/dl (1.8-2.4); Phosphorus 1.9 mg/dl (2.5-4.9)
--- NOTE | 2020-08-22 10:11 | Discharge Summary ---
Date of Service August 22, 2020 Admission HPI Per Admitting Provider Katherine is an 85-year-old female with a past medical history of CVA, hypertension, osteopenia, carotid artery stenosis, GERD, and long-term anticoagulation on rivaroxaban who presents with abdominal pain by ambulance. She was seen at the bedside with her daughter. Her daughter reports that she has had about 1 month of worsening abdominal pain and weakness. They report that she has had minimal bowel movements with sometimes just a smear in her depends. She has not had any chest pain, but has had steady slowly increasing shortness of breath. He has felt globally weaker and has had difficulty ambulating in the last month. No slurred speech, no facial asymmetry, she has chronic left upper and lower extremity asymmetric weakness compared to the right. No sudden increase in focal neurologic deficits, but seem to be globally weak. Patient denies vomiting, but endorses decreased appetite and nausea. Endorses abdominal distention. Denies fever/chills/sweats/palpitations. Denies headache. Endorses chronic left lower extremity and minimal right lower extremity swelling. History of PFO, no history of heart failure. On admission to the ER CT shows profound distention with high stool burden with upward pressure causing diaphragmatic compromise. She was manually disimpacted in the emergency department. No nausea/vomiting/emesis following manual disimpaction. Medical History: Reviewed Surgical History: Reviewed Family History: Reviewed Allergies: No known drug allergies Social History: Lives in an in-law suite at her son's who is working from home. No sick contacts at home. Denies alcohol, tobacco, and recreational drug use. CODE STATUS: Full code, discussed at bedside with patient and patient's daughter. Admission Exam Per Admitting Provider General:Frail, thin appearing elderly female. HEENT: Atraumatic, normocephalic. Pulm: Diminished. Symmetrical chest rise. No increase work of breathing. No respiratory distress. Cardiac: RRR, -mrg. Radial pulses intact and symmetrical. Abdominal: Softly distended, diffuse mild TTP. CRANIAL NERVES: II: Pupils equal and reactive, no relative afferent pupillary defect, no VF cuts III, IV, : EOM intact, no gaze preference or deviation, no nystagmus. V: normal sensation in V1, V2, and V3 segments bilaterally VII: no asymmetry, no nasolabial fold flattening VIII: normal hearing to speech XII: midline tongue protrusion MOTOR: RUE: 4+/5 Shoulder internal rotation, external rotation, abduction, adduction 4+/5 wrist flexion/extension 5/5 weld inspector strength, finger flexion/extension, interosseus LUE: 2/5 Shoulder internal rotation, external rotation, flexion, extension, abduction, adduction 3/5 wrist flexion/extension 3/5 weld inspector strength, finger flexion/extension, interosseus RLE: 4+/5 to hip flexion, ankle dorsiflexion/plantarflexion LLE: 3/5 to hip flexion, ankle dorsiflexion/plantarflexion SENSORY: Normal to touch, pinprick, vibration, temp in upper and lower extremities with slight decrease on LLE compared to RLE otherwise without asymmetry. Principal Diagnosis Stercolic Colitis, Fecal impaction Discharge Exam General:Frail, thin appearing elderly female. HEENT: Atraumatic, normocephalic. PERLAA. Visual acuity grossly intact. Hearing grossly intact. Pulm: Diminished. Symmetrical chest rise. No increase work of breathing. No respiratory distress. Cardiac: RRR, -mrg. Radial pulses intact and symmetrical. Abdominal: Softly distended, NT. Discharge Data Allergies Allergy/AdvReac Type Severity Reaction Status Date / Time sulfamethoxazole Allergy Mild MOUTH SORES Verified 08/13/20 20:07 trimethoprim Allergy Mild MOUTH SORES Verified 08/13/20 20:07 morphine AdvReac Intermediate HEART Verified 08/13/20 20:07 PALPITATIONS,CHEST TIGHTNESS,VOMITING Opioid Analgesics AdvReac Intermediate HEART Uncoded 08/13/20 20:07 PALPITATIONS, CHEST TIGHTNESS, VOMITING Consultations 08/13/20 21:01 ED Decision to Admit Stat 08/19/20 16:01 Consult Urology Routine Ordered Studies 08/13/20 19:36 CT abd pelvis IV con only Stat CT angio chest PE protocol Stat 08/19/20 14:13 CT angio chest PE protocol Routine Hospital Course (1) Abdominal pain: Katherine Weight is an 85 yo F PMHx CVA, HTN, osteopenia, COREY, GERD, and long- term anticoagulation on rivaroxaban who is admitted for stercoral colitis and acute hypoxic respiratory failure. Stercoral colitis and fecal retention: Katherine is an 85-year-old female who was brought into the emergency department following 1 month of worsening abdominal pain and weakness with minimal bowel movements. On admitting assessment she was found to have abdominal tenderness and imaging revealed severe stercoral colitis and fecal retention with diaphragmatic compromise leading to send breathing. Associated chronic malnutrition and global weakness. She underwent manual disimpaction of large volume of stool in the emergency department. Following admission to the hospital she was managed as a small bowel obstruction/constipation, required an additional disimpaction. Was treated with Dulcolax suppositories and enemas as tolerated, initially n.p.o. with diet slowly progressed to minced/moist as tolerated. She was discharged to [facility] for further care. She should continue to use oral MiraLAX/max it if tolerating p.o., Dulcolax suppositories/moist versus soapsuds enema if not tolerating p.o. or not having bowel movements in 2-3 days. Acute hypoxic respiratory failure on NC supplemental O2 2/2 diaphragmatic compromise from severe stool impaction: Katherine experienced acute hypoxia thought to be due to direct Burroughs compromise from severe stool impaction. Following treatment as above she had steadily improving breathing status intermittently requiring 2 to 3 L of nasal cannula. She was encouraged to continue to use incentive spirometry 4-5 times per hour, and did not show signs of Pittore distress or decompensation during admission. Severe protein calorie malnutrition: Patient has a history of severe malnutrition with poor oral intake and no appetite worsened in the last month. She was made n.p.o. during initial treatment of her stercoral colitis as above. Following slow improvement her diet was advanced to minced and moist. Dietary supplement with boost 3 times daily M was recommended. Patient was noted to have intact swallowing function, although did experience intermittent nausea. Remeron 15 mg nightly Marinol 2.5 mg 3 times daily were prescribed for appetite stimulation. She was prescribed additional Mag-Ox and Neutra-Phos supplements due to electrolyte depletion to be continued at [facility]. Weakness secondary to severe protein calorie malnutrition Katherine has chronic weakness with severe deconditioning. Needs to continue working with PT to regain strength. patient frequently refuses stating she is too weak, but needs to participate rather than laying in bed all day Recommend assistance with walking, frequent turning, out of bed to chair with assistance multiple times a day with additional physical therapy support as tolerated. Chronic back pain: Tylenol and K pad as needed. DVT prophylaxis: Patient on chronic Xarelto therapy with history of stroke. She is continued on Xarelto with no signs of active bleeding during admission. Total Time Total Time Spent Total Time Spent (In Minutes): <30 Discharge Plan Discharge Items Patient Disposition: Transfer Inpatient Rehab Fac Reason For Visit: STERCORAL COLITIS, AHRF Discharge Diagnosis: Stool impaction, Hypoxia Activity: Resume your previous activity Non-emergency contact: Primary Care Provider Call non-emergency contact if: you have any medication questions and your pain is concerning for you Follow-up/Referrals: Tomas Young MD [Primary Care Provider] - Diet: Regular Diet Texture: Dental soft (bite-sized) Diet Comment: Make sure you are drinking Ensure or boost with meals. Addtl Attending Provider Instructions: Katherine weight is an 85 yo F PMHx CVA, HTN, osteopenia, COREY, GERD, and long-term anticoagulation on rivaroxaban who is admitted for stercoral colitis and acute hypoxic respiratory failure. Stercoral colitis and fecal retention: Katherine is an 85-year-old female who was brought into the emergency department following 1 month of worsening abdominal pain and weakness with minimal bowel movements. On admitting assessment she was found to have abdominal tenderness and imaging revealed severe stercoral colitis and fecal retention with diaphragmatic compromise leading to send breathing. Associated chronic malnutrition and global weakness. She underwent manual disimpaction of large volume of stool in the emergency department. Following admission to the hospital she was managed as a small bowel obstruction/constipation, required an additional disimpaction. Was treated with Dulcolax suppositories and enemas as tolerated, initially n.p.o. with diet slowly progressed to minced/moist as tolerated. She may use oral Miralax/MagCit if tolerating PO, or continue to use dulolax/enemas otherwise or if needed for no BMs in 2-3 days. Recommend continued electrolyte checks especially if fleet or soap suds enemas are required. She was discharged to [facility] for further care. Acute hypoxic respiratory failure on NC supplemental O2 2/2 diaphragmatic compromise from severe stool impaction: Katherine experienced acute hypoxia thought to be due to direct Burroughs compromise from severe stool impaction. Following treatment as above she had steadily improving breathing status intermittently requiring 2 to 3 L of nasal cannula. She was encouraged to continue to use incentive spirometry 4-5 times per hour, and did not show signs of Pittore distress or decompensation during admission. Severe protein calorie malnutrition: Patient has a history of severe malnutrition with poor oral intake and no appetite worsened in the last month. She was made n.p.o. during initial treatment of her stercoral colitis as above. Following slow improvement her diet was advanced to minced and moist. Dietary supplement with boost 3 times daily M was recommended. Patient was noted to have intact swallowing function, although did experience intermittent nausea. Remeron 15 mg nightly Marinol 2.5 mg 3 times daily were prescribed for appetite stimulation. She was prescribed additional Mag-Ox and Neutra-Phos supplements due to electrolyte depletion to be continued at [facility]. Weakness secondary to severe protein calorie malnutrition Katherine has chronic weakness with severe deconditioning. Needs to continue working with PT to regain strength. patient frequently refuses stating she is too weak, but needs to participate rather than laying in bed all day Recommend assistance with walking, frequent turning, out of bed to chair with assistance multiple times a day with additional physical therapy support as tolerated. Chronic back pain: Tylenol and K pad as needed. DVT prophylaxis: Patient on chronic Xarelto therapy with history of stroke. She is continued on Xarelto with no signs of active bleeding during admission. Pending Studies at Discharge: No Stand-Alone Forms: [facility] Skilled Items Patient informed of condition?: Yes DNR: No Discharge Level of Care: Acute rehab Communicable Disease: No Discharge Prognosis: Improving Lines: None Urinary Catheter: No Medications and DC Order Prescriptions: New mirtazapine 15 mg Tablet 15 mg PO HS Qty: 30 RF: 0 magnesium oxide 400 mg (241.3 mg magnesium) Tablet 400 mg PO BID Qty: 60 RF: 0 dronabinol [Marinol] 2.5 mg capsule 2.5 mg PO TID@0700,1100,1600 30 Days RF: 0 famotidine 20 mg Tablet 20 mg PO QAM PRN (Reason: TYREL) 30 Days Qty: 30 RF: 0 Phospha 250 Neutral 250 mg Tablet 2 tab PO BID 30 Days Qty: 120 RF: 0 bisacodyl 10 mg Suppository 10 mg AR DAILY PRN (Reason: constipation) Qty: 12 RF: 0 Enema Disposable 19-7 gram/118 mL Enema 132 ml AR TID PRN (Reason: constipation ) 3 Days Qty: 1188 RF: 0 Continued folic acid 1 mg tablet 1 mg PO DAILY Qty: 90 RF: 3 Xarelto 15 mg tablet 15 mg PO QPM Qty: 90 RF: 3 omeprazole 20 mg capsule,delayed release(DR/EC) 20 mg PO BID Qty: 180 RF: 3 multivitamin [Daily Multi-Vitamin] Tablet 1 tab PO DAILY RF: 0 diclofenac sodium 1 % gel 4 g topical QID Qty: 100 RF: 5 acetaminophen 500 mg tablet 1,000 mg PO DAILY RF: 0 cholecalciferol (vitamin D3) 1,000 unit capsule 1,000 units PO DAILY RF: 0 Discontinued losartan 50 mg tablet 50 mg PO DAILY Qty: 90 RF: 3 Discharge Orders: Discharge Order (Routine); Ordered 08/22/20 Ordered By: Willian Mendoza Admission Data Admit Date/Time: 08/13/20 22:32 Attending Provider: Ryan Ibrahim Admit Provider: Willian Mendoza Primary Care Provider: Tomas Young Other Providers: Mabel Higgins ; Lanny Lozano ; [facility] ; Skylar Lucas ; Jarek Dey Other Interventions: Discharge Summary Assessment (RN) Last Done: 08/22/20 11:05 Supervising Physician Co-Signing Physician Notes I personally examined the patient and verified all phipps points of history and exam, discussed case, and agree with decision making with Dr Mendoza. still tired, still doesn't really want to eat. vitals noted nad heent nc at mmm breathing unlabored no accessory muscles good effort skin no rashes no pallor or icterus constipation/fecal impaction - finally improving post disimpaction x2 and aggressive bowel regimen - doing better in this regard. emphasized to pt that stomach will not feel perfect for a while (and will be using meds to mitigate this) but must at least try to eat to avoid worsening weakness/malnutrition. last 2 days have been progressively more direct with pt that i harbor grave concerns that she could actually have an ongoing decline and essentially due to this episode if she doesn't start to eat more/participate with therapy more. continue bowel and stomach meds at rehab - but given that her most dire problems at this point are deconditioning and malnutrition - best to transfer to rehab for ongoing PT/OT. follow nutrition intake closely, titrate marinol if needed. hypoxia - after extensive review, appears that this is almost certainly from shallow breathing from belly issues. O2 support, activity. sacral ulcers - ongoing local wound care otherwise as above, for rehab today Resident Activity Tracking Resident Involvement: Resident Care Provided Care Provided: Adult [facility]
[2020-08-22] MEDS: FOLIC ACID 1 MG TAB PO SCH (10:30)
[2020-08-22] MEDS: CHOLECALCIFEROL 1,000 UNITS 25 MCG TAB PO SCH (10:30)
[2020-08-22] MEDS: MULTIVITAMIN TAB PO SCH (10:30)
[2020-08-22] MEDS: THIAMINE HCL 100 MG TAB PO SCH (10:30)
[2020-08-22] MEDS: LOSARTAN POTASSIUM 50 MG TAB PO SCH (10:30)
[2020-08-22] MEDS ORDERED: FAMOTIDINE 20 MG TAB PO SCH (11:00)
--- NOTE | 2020-08-22 14:28 | Billing Data ---
Date of Service August 22, 2020 Coding Level of Care Code D/C Day Management <30 mins
[2020-08-22] MEDS ORDERED: POT PHOSPHATE MONOBASIC W/ SOD TAB PO SCH (21:00)
== END 2020-08-22 11:55 | DRG 391 ==
LOC: ED 19:27 → SUATTDRO 22:32 → 2S 22:32 → 3N 08-15 10:46 → 2S 08-18 14:40 → 3N 08-20 16:51

== ENCOUNTER 2020-08-25 21:07 | Inpatient (IN) ==
--- NOTE | 2020-08-25 21:12 | Emergency Department Note ---
Impression & Plan Acute hypoxemic respiratory failure, Dyspnea, Hypoglycemia ED Provider Note NAME: IFTIKHAR Trevizo WEIGHT AGE: 85 SEX: F : 1935 ARRIVES VIA: Ambulance INFORMANT: Patient, ED PROVIDER(S): Mansoor Lopez MD Chief Complaint: Shortness of breath HPI: Patient does present due to concern for shortness of breath. The patient has had an increasing oxygen requirement during this recent rehab stay including being in the low 80s on 6 L. The patient did have a recent admission on August 14 and was subsequently discharged to August 22 due to concern for stercoral colitis and acute hypoxic respiratory failure. The patient does have protein calorie malnutrition. Patient is anticoagulated on rivaroxaban due to prior h istory of stroke. I did review the patient's most recent CAT scan which showed no obvious PE but did have pleural effusions. The patient did have a chest x- ray completed on the which showed persistent pleural effusions. Thought was that the patient did have some hypoxia due to inability to pull down the diaphragm due to constipation. The patient does complain of some mild buttock pain but does have a known history of a sacral wound. The patient has not had positive Covid. The patient did have a recent echocardiogram completed within the last 11 days which showed a normal EF. The patient does have chronic lower extremity swelling. The patient does have a prior history of CVA with left- sided deficits. ROS: See HPI for pertinent positives and negatives. A total of 10 systems were reviewed and otherwise negative. Past medical history: See below Surgical history: See below Social history: See below Physical Exam: GENERAL: Thin in appearance, moderate distress, nonrebreather in place. EYE EXAM: Normal conjunctiva. PERRL, no anisocoria and EOM's grossly intact w/o pain. NECK: Supple, no nuchal rigidity, no adenopathy, non-tender. No signs of meningismus. LUNGS: Decreased breath sounds bilateral bases. Normal chest wall mechanics. HEART: NSR, no MRG. ABDOMEN: Abdomen soft, non-tender, normo-active bowel sounds, no masses, no rebound or guarding. BACK: No CVA TTP. SKIN: No rashes and no bruising. UPPER EXTREMITIES: Upper extremities are grossly normal. LOWER EXTREMITIES: Grossly normal, left greater than right lower extremity edema. No obvious erythema. NEURO EXAM: Awake alert, follows basic commands, left upper and lower extremity weakness. Differential diagnoses: Reactive airway disease, pneumonia, pneumothorax, COPD, CHF, infections, cardiac ischemia, pulmonary embolism, musculoskeletal, gastrointestinal, as well as other pathologies. Course: Patient was seen and evaluated the bedside. Full history physical exam was performed. EKG: Indication: Shortness of breath Imaging Studies: Radiology results as stated below per my review in the radiologist's interpretation: Cardiac monitoring: An order was placed for continuous cardiac monitoring. The monitor shows a rate of 98 with sinus rhythm. MDM: Patient was seen due to concern for shortness of breath. I did speak with the patient's daughter Nelia Dunn. I did explain the precarious situation subsequently did speak with the patient's Raul at [phone]. I did ask whether not the patient in the event that she was unable to answer for herself had any advanced directives or living well. He stated that this had not been discussed. The patient has been wheelchair-bound for approximately 1 to 2 years with very limited activity due to a stroke. Patient was placed on high flow nasal cannula as the patient reportedly did not tolerate CPAP at the rehab facility. Patient is tolerating this well and she is having improvement in her oxygenation status. Patient was ordered a small fluid challenge given the patient's recent echocardiogram with a normal EF. The patient was satting in the high 90s. I did call respiratory in order to change the settings to get her to be in the lower 90s in order to avoid over oxygenation and hypercarbia. Patient did have a low blood sugar and was ordered D50. Patient did have a positive troponin. BNP is detectable but not elevated based on the patient's age. Patient does have mild white count of 12 but is not anemic. Platelet count is normal. Lactate is not elevated. 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 Beliefs That Will Affect Care: None marital status: Current Living Situation: Family Current Living Situation Comment: Son and Dtr-in-Law live with patient and her current occupational status: retired Feels Safe at Home: Yes Dental Care, Regularly: No Physical Activity Frequency: Does not Exercise Seatbelt Use: always Sunscreen Use: No Assistive Devices: Oxygen - Continuous Allergies Allergies Allergy/AdvReac Type Severity Reaction Status Date / Time sulfamethoxazole Allergy Mild MOUTH SORES Verified 08/13/20 20:07 trimethoprim Allergy Mild MOUTH SORES Verified 08/13/20 20:07 morphine AdvReac Intermediate HEART Verified 08/13/20 20:07 PALPITATIONS,CHEST TIGHTNESS,VOMITING Opioid Analgesics AdvReac Intermediate HEART Uncoded 08/13/20 20:07 PALPITATIONS, CHEST TIGHTNESS, VOMITING Home Meds Home Medications Medication Instructions Recorded Confirmed Therapeutic Multivit/Mineral 1 tab PO DAILY 08/25/20 08/25/20 acetaminophen 650 mg PO Q4H PRN 08/25/20 08/25/20 ascorbic acid (vitamin C) 500 mg PO BID 08/25/20 08/25/20 bisacodyl 10 mg NH DAILY PRN 08/25/20 08/25/20 cholecalciferol (vitamin D3) 50 mcg PO DAILY 08/25/20 08/25/20 [Vitamin D3] docusate sodium 100 mg PO BID 08/25/20 08/25/20 dronabinol [Marinol] 2.5 mg PO TID 08/25/20 08/25/20 famotidine 20 mg PO QAM 08/25/20 08/25/20 magnesium hydroxide [Milk of 30 ml PO DAILY PRN 08/25/20 08/25/20 Magnesia] magnesium oxide 400 mg PO BID 08/25/20 08/25/20 melatonin 3 mg PO HS 08/25/20 08/25/20 nitrofurantoin monohyd/m-cryst 100 mg PO BID 08/25/20 08/25/20 [Macrobid] pantoprazole 40 mg PO DAILYBB 08/25/20 08/25/20 polyethylene glycol 3350 [Miralax] 17 g PO DAILY 08/25/20 08/25/20 polyethylene glycol 3350 [Miralax] 17 g PO QDL PRN 08/25/20 08/25/20 sennosides-docusate sodium 1 tab PO QDL PRN 08/25/20 08/25/20 [Senokot-S] sodium phosphates [Fleet Enema] 133 ml NH DAILY PRN 08/25/20 08/25/20 zinc sulfate 220 mg PO DAILY 08/25/20 08/25/20 Previous Rx's Medication Instructions Recorded folic acid 1 mg tablet 1 mg PO DAILY #90 tab 08/28/19 rivaroxaban 15 mg tablet 15 mg PO QPM #90 tab 10/17/19 diclofenac sodium 1 % topical gel 4 g TOPICAL QID #100 g 06/23/20 mirtazapine 15 mg PO HS #30 tab 08/15/20 Results & Data (ED) Vital Signs Vital Signs - 24 hr 08/25/20 21:11 08/25/20 21:27 08/25/20 21:31 Temperature 36.4 C L Temperature Source Oral Pulse Rate 112 H 108 H Pulse Rate [Right Finger] 114 H Pulse Rate from SpO2 Sensor 107 H Pulse Rhythm Regular Pulse Strength Normal Respiratory Rate 25 H 24 18 Respiratory Effort / Characteristics Labored Spontaneous Short of Breath Respiratory Pattern Regular Blood Pressure 106/68 88/54 L Blood Pressure Mean 80 75 Blood Pressure Position Sitting Pulse Oximetry 93 95 91 Oxygen Delivery Method Non-rebreather High Flow Nasal Cannula High Flow Nasal Cannula Oxygen Flow Rate 15 25 Fraction of Inspired Oxygen 100 Sepsis Recent Fever Within 48 Hours No Sepsis New/Unexplained Change in Mental Status No Sepsis Action Taken by Nursing No Action Required 08/25/20 22:00 08/25/20 22:22 08/25/20 22:30 Temperature Temperature Source Pulse Rate 87 89 Pulse Rate [Right Finger] 98 H Pulse Rate from SpO2 Sensor 100 H 86 Pulse Rhythm Pulse Strength Respiratory Rate 23 24 19 Respiratory Effort / Characteristics Spontaneous Respiratory Pattern Blood Pressure 122/67 112/67 Blood Pressure Mean 85 83 Blood Pressure Position Pulse Oximetry 98 100 98 Oxygen Delivery Method High Flow Nasal Cannula High Flow Nasal Cannula High Flow Nasal Cannula Oxygen Flow Rate 25 Fraction of Inspired Oxygen 60 Sepsis Recent Fever Within 48 Hours Sepsis New/Unexplained Change in Mental Status Sepsis Action Taken by Nursing 08/25/20 23:32 Temperature Temperature Source Pulse Rate 87 Pulse Rate [Right Finger] Pulse Rate from SpO2 Sensor Pulse Rhythm Pulse Strength Respiratory Rate Respiratory Effort / Characteristics Respiratory Pattern Blood Pressure 105/68 Blood Pressure Mean Blood Pressure Position Pulse Oximetry 94 Oxygen Delivery Method High Flow Nasal Cannula Oxygen Flow Rate Fraction of Inspired Oxygen Sepsis Recent Fever Within 48 Hours Sepsis New/Unexplained Change in Mental Status Sepsis Action Taken by Skilled Nursing Medications Current Medication List: was personally reviewed by me Laboratory Data Attestation: I reviewed the patient's lab results. Result diagrams: 08/25/20 21:25 08/25/20 21:25 Lab Results 08/25/20 08/25/20 08/25/20 Range/Units 21:25 21:25 21:32 WBC 12.98 H (4.8-10.8) K/uL RBC 3.78 L (4.2-5.4) M/uL Hgb 13.1 (12.0-16.0) g/dL Hct 38.6 (37-47) % MCV 102.1 H (80-100) fL MCH 34.7 H (25-34) pg MCHC 33.9 (32-36) g/dL RDW Std Deviation 65.1 H (36.4-46.3) fL RDW Coeff of Steve 17.6 H (11.5-14.5) % Plt Count 353 (130-400) K/uL MPV 9.0 (7.4-10.4) fL Immature Gran % (Auto) 0.7 % Neut % (Auto) 65.8 % Lymph % (Auto) 26.2 % Dolores % (Auto) 7.0 % Eos % (Auto) 0.1 % Baso % (Auto) 0.2 % Neut # (Auto) 8.55 H (1.4-6.5) K/uL Lymph # (Auto) 3.40 (1.2-3.4) K/uL Dolores # (Auto) 0.91 H (0.11-0.59) K/uL Eos # (Auto) 0.01 (0-0.5) K/uL Baso # (Auto) 0.02 (0-0.2) K/uL Immature Gran # (Auto) 0.09 H (0.00-0.02) K/uL PT (9.0-12.0) Seconds INR (0.9-1.1) APTT (21.0-31.0) Seconds PTT Ratio VBG pH (7.36-7.41) VBG pCO2 (38-50) mmHg VBG pO2 mmHg VBG HCO3 mmol/L VBG O2 Saturation % VBG Base Excess mEq/L Barometric Pressure mm/Hg Sodium 136 (136-145) mmol/L Potassium 4.0 (3.5-5.1) mmol/L Chloride 105 (98-107) mmol/L Carbon Dioxide 19 L (21-32) mmol/L Anion Gap 11.0 (3-11) BUN 10 (7-18) mg/dl Creatinine 0.53 L (0.6-1.2) mg/dl Est Cr Clr Drug Dosing 56.8 ml/min Est GFR ( Amer) 100.3 Est GFR (Non-Af Amer) 86.6 BUN/Creatinine Ratio 19.3 (10-20) Glucose 47 L* (70-99) mg/dl POC Glucose (70-99) mg/dl Lactate (0.4-2.0) mmol/L Calcium 8.9 (8.5-10.1) mg/dl Phosphorus 2.6 (2.5-4.9) mg/dl Magnesium 1.9 (1.8-2.4) mg/dl Total Bilirubin 1.0 (0.2-1) mg/dl AST 38 H (15-37) U/L ALT 33 (12-78) U/L Alkaline Phosphatase 118 H (45-117) U/L Troponin I 0.085 H* (0-0.045) ng/ml NT-Pro-B Natriuret Pep 1417 (0-1800) pg/ml Total Protein 5.4 L (6.4-8.2) gm/dl Albumin 2.1 L (3.4-5.0) gm/dl Globulin 3.3 (2.5-4.0) gm/dl Albumin/Globulin Ratio 0.6 L (0.9-2) Procalcitonin (0-0.5) ng/ml Urine Color Urine Appearance (Clear) Urine pH (4.5-7.5) Ur Specific [place] (1.000-1.030) Urine Protein (Negative) Urine Glucose (UA) (Negative) Urine Ketones (Negative) Urine Blood (Negative) Urine Nitrite (Negative) Urine Bilirubin (Negative) Urine Urobilinogen (Negative) Ur Leukocyte Esterase (Negative) COVID-19 Eval Order CovFluRsv at [facility] SARS-CoV-2 (PCR) (Negative) Influenza Type A (PCR) (Neg) Influenza Type B (PCR) (Neg) RSV (RT-PCR) (Neg) 08/25/20 08/25/20 08/25/20 Range/Units 21:32 22:14 22:24 WBC (4.8-10.8) K/uL RBC (4.2-5.4) M/uL Hgb (12.0-16.0) g/dL Hct (37-47) % MCV (80-100) fL MCH (25-34) pg MCHC (32-36) g/dL RDW Std Deviation (36.4-46.3) fL RDW Coeff of Steve (11.5-14.5) % Plt Count (130-400) K/uL MPV (7.4-10.4) fL Immature Gran % (Auto) % Neut % (Auto) % Lymph % (Auto) % Dolores % (Auto) % Eos % (Auto) % Baso % (Auto) % Neut # (Auto) (1.4-6.5) K/uL Lymph # (Auto) (1.2-3.4) K/uL Dolores # (Auto) (0.11-0.59) K/uL Eos # (Auto) (0-0.5) K/uL Baso # (Auto) (0-0.2) K/uL Immature Gran # (Auto) (0.00-0.02) K/uL PT 13.9 H (9.0-12.0) Seconds INR 1.3 H (0.9-1.1) APTT 26.1 (21.0-31.0) Seconds PTT Ratio 0.9 VBG pH (7.36-7.41) VBG pCO2 (38-50) mmHg VBG pO2 mmHg VBG HCO3 mmol/L VBG O2 Saturation % VBG Base Excess mEq/L Barometric Pressure mm/Hg Sodium (136-145) mmol/L Potassium (3.5-5.1) mmol/L Chloride (98-107) mmol/L Carbon Dioxide (21-32) mmol/L Anion Gap (3-11) BUN (7-18) mg/dl Creatinine (0.6-1.2) mg/dl Est Cr Clr Drug Dosing ml/min Est GFR ( Amer) Est GFR (Non-Af Amer) BUN/Creatinine Ratio (10-20) Glucose (70-99) mg/dl POC Glucose (70-99) mg/dl Lactate (0.4-2.0) mmol/L Calcium (8.5-10.1) mg/dl Phosphorus (2.5-4.9) mg/dl Magnesium (1.8-2.4) mg/dl Total Bilirubin (0.2-1) mg/dl AST (15-37) U/L ALT (12-78) U/L Alkaline Phosphatase (45-117) U/L Troponin I (0-0.045) ng/ml NT-Pro-B Natriuret Pep (0-1800) pg/ml Total Protein (6.4-8.2) gm/dl Albumin (3.4-5.0) gm/dl Globulin (2.5-4.0) gm/dl Albumin/Globulin Ratio (0.9-2) Procalcitonin (0-0.5) ng/ml Urine Color Dark Yellow Urine Appearance Clear (Clear) Urine pH 5.5 (4.5-7.5) Ur Specific [place] 1.017 (1.000-1.030) Urine Protein Trace H (Negative) Urine Glucose (UA) Negative (Negative) Urine Ketones 3+ H (Negative) Urine Blood Negative (Negative) Urine Nitrite Negative (Negative) Urine Bilirubin 1+ H (Negative) Urine Urobilinogen Negative (Negative) Ur Leukocyte Esterase Trace H (Negative) COVID-19 Eval Order SARS-CoV-2 (PCR) NEGATIVE (Negative) Influenza Type A (PCR) Negative (Neg) Influenza Type B (PCR) Negative (Neg) RSV (RT-PCR) Negative (Neg) 08/25/20 08/25/20 08/25/20 Range/Units 22:24 22:24 22:24 WBC (4.8-10.8) K/uL RBC (4.2-5.4) M/uL Hgb (12.0-16.0) g/dL Hct (37-47) % MCV (80-100) fL MCH (25-34) pg MCHC (32-36) g/dL RDW Std Deviation (36.4-46.3) fL RDW Coeff of Steve (11.5-14.5) % Plt Count (130-400) K/uL MPV (7.4-10.4) fL Immature Gran % (Auto) % Neut % (Auto) % Lymph % (Auto) % Dolores % (Auto) % Eos % (Auto) % Baso % (Auto) % Neut # (Auto) (1.4-6.5) K/uL Lymph # (Auto) (1.2-3.4) K/uL [place]ores # (Auto) (0.11-0.59) K/uL Eos # (Auto) (0-0.5) K/uL Baso # (Auto) (0-0.2) K/uL Immature Gran # (Auto) (0.00-0.02) K/uL PT (9.0-12.0) Seconds INR (0.9-1.1) APTT (21.0-31.0) Seconds PTT Ratio VBG pH 7.36 (7.36-7.41) VBG pCO2 38 (38-50) mmHg VBG pO2 22 mmHg VBG HCO3 21 mmol/L VBG O2 Saturation < 60.0 % VBG Base Excess -3.7 mEq/L Barometric Pressure 727.0 mm/Hg Sodium (136-145) mmol/L Potassium (3.5-5.1) mmol/L Chloride (98-107) mmol/L Carbon Dioxide (21-32) mmol/L Anion Gap (3-11) BUN (7-18) mg/dl Creatinine (0.6-1.2) mg/dl Est Cr Clr Drug Dosing ml/min Est GFR ( Amer) Est GFR (Non-Af Amer) BUN/Creatinine Ratio (10-20) Glucose (70-99) mg/dl POC Glucose (70-99) mg/dl Lactate 1.8 (0.4-2.0) mmol/L Calcium (8.5-10.1) mg/dl Phosphorus (2.5-4.9) mg/dl Magnesium (1.8-2.4) mg/dl Total Bilirubin (0.2-1) mg/dl AST (15-37) U/L ALT (12-78) U/L Alkaline Phosphatase (45-117) U/L Troponin I (0-0.045) ng/ml NT-Pro-B Natriuret Pep (0-1800) pg/ml Total Protein (6.4-8.2) gm/dl Albumin (3.4-5.0) gm/dl Globulin (2.5-4.0) gm/dl Albumin/Globulin Ratio (0.9-2) Procalcitonin < 0.05 (0-0.5) ng/ml Urine Color Urine Appearance (Clear) Urine pH (4.5-7.5) Ur Specific [place] (1.000-1.030) Urine Protein (Negative) Urine Glucose (UA) (Negative) Urine Ketones (Negative) Urine Blood (Negative) Urine Nitrite (Negative) Urine Bilirubin (Negative) Urine Urobilinogen (Negative) Ur Leukocyte Esterase (Negative) COVID-19 Eval Order SARS-CoV-2 (PCR) (Negative) Influenza Type A (PCR) (Neg) Influenza Type B (PCR) (Neg) RSV (RT-PCR) (Neg) 08/25/20 Range/Units 22:38 WBC (4.8-10.8) K/uL RBC (4.2-5.4) M/uL Hgb (12.0-16.0) g/dL Hct (37-47) % MCV (80-100) fL MCH (25-34) pg MCHC (32-36) g/dL RDW Std Deviation (36.4-46.3) fL RDW Coeff of Steve (11.5-14.5) % Plt Count (130-400) K/uL MPV (7.4-10.4) fL Immature Gran % (Auto) % Neut % (Auto) % Lymph % (Auto) % Dolores % (Auto) % Eos % (Auto) % Baso % (Auto) % Neut # (Auto) (1.4-6.5) K/uL Lymph # (Auto) (1.2-3.4) K/uL [place]ores # (Auto) (0.11-0.59) K/uL Eos # (Auto) (0-0.5) K/uL Baso # (Auto) (0-0.2) K/uL Immature Gran # (Auto) (0.00-0.02) K/uL PT (9.0-12.0) Seconds INR (0.9-1.1) APTT (21.0-31.0) Seconds PTT Ratio VBG pH (7.36-7.41) VBG pCO2 (38-50) mmHg VBG pO2 mmHg VBG HCO3 mmol/L VBG O2 Saturation % VBG Base Excess mEq/L Barometric Pressure mm/Hg Sodium (136-145) mmol/L Potassium (3.5-5.1) mmol/L Chloride (98-107) mmol/L Carbon Dioxide (21-32) mmol/L Anion Gap (3-11) BUN (7-18) mg/dl Creatinine (0.6-1.2) mg/dl Est Cr Clr Drug Dosing ml/min Est GFR ( Amer) Est GFR (Non-Af Amer) BUN/Creatinine Ratio (10-20) Glucose (70-99) mg/dl POC Glucose 97 (70-99) mg/dl Lactate (0.4-2.0) mmol/L Calcium (8.5-10.1) mg/dl Phosphorus (2.5-4.9) mg/dl Magnesium (1.8-2.4) mg/dl Total Bilirubin (0.2-1) mg/dl AST (15-37) U/L ALT (12-78) U/L Alkaline Phosphatase (45-117) U/L Troponin I (0-0.045) ng/ml NT-Pro-B Natriuret Pep (0-1800) pg/ml Total Protein (6.4-8.2) gm/dl Albumin (3.4-5.0) gm/dl Globulin (2.5-4.0) gm/dl Albumin/Globulin Ratio (0.9-2) Procalcitonin (0-0.5) ng/ml Urine Color Urine Appearance (Clear) Urine pH (4.5-7.5) Ur Specific [place] (1.000-1.030) Urine Protein (Negative) Urine Glucose (UA) (Negative) Urine Ketones (Negative) Urine Blood (Negative) Urine Nitrite (Negative) Urine Bilirubin (Negative) Urine Urobilinogen (Negative) Ur Leukocyte Esterase (Negative) COVID-19 Eval Order SARS-CoV-2 (PCR) (Negative) Influenza Type A (PCR) (Neg) Influenza Type B (PCR) (Neg) RSV (RT-PCR) (Neg) Administered Medications Discontinued Medications Dextrose (Dextrose 50% 50 Ml Syringe) 50 ml IV NOW ONE Stop: 08/25/20 22:07 Last Admin: 08/25/20 22:13 Dose: 50 ml Documented by: [id number] Dextrose (Dextrose 50% 50 Ml Syringe) Confirm Administered Dose 50 ml IV .STK- MED ONE Stop: 08/25/20 22:08 Last Admin: 08/25/20 22:13 Dose: Not Given Documented by: [id number] Sodium Chloride (Nss 1000ml) 1,000 mls @ 999 mls/hr IV .Q1H1M TRISH Stop: 08/25/20 22:30 Last Infusion: 08/25/20 22:57 Dose: 0 mls/hr Documented by: [id number] Admin: 08/25/20 21:36 Dose: 999 mls/hr Documented by: [id number] Sodium Chloride (Nss 1000ml) 500 mls @ 999 mls/hr IV .Q31M ONE Stop: 08/25/20 22:17 Last Infusion: 08/25/20 22:57 Dose: 0 mls/hr Documented by: [id number] Admin: 08/25/20 22:13 Dose: 999 mls/hr Documented by: [id number] Discharge Plan Visit Data Chief Complaint: Shortness of Breath/Dyspnea Stated Complaint: RESPIRATORY DIFFICULTY ED Provider: Mansoor Lopez Discharge Problem: Acute hypoxemic respiratory failure, Dyspnea, Hypoglycemia Discharge Instructions Interventions: ED Discharge Assessment Last Done: 08/25/20 23:32 Forms Stand Alone Forms: [facility] Prescriptions Prescriptions: No Action folic acid 1 mg tablet 1 mg PO DAILY Qty: 90 RF: 3 Xarelto 15 mg tablet 15 mg PO QPM Qty: 90 RF: 3 diclofenac sodium 1 % gel 4 g topical QID Qty: 100 RF: 5 mirtazapine 15 mg Tablet 15 mg PO HS Qty: 30 RF: 0 acetaminophen 325 mg Tablet 650 mg PO Q4H PRN (Reason: Pain) RF: 0 sennosides-docusate sodium [Senokot-S] 8.6-50 mg Tablet 1 tab PO QDL PRN (Reason: Constipation) RF: 0 melatonin 3 mg Tablet 3 mg PO HS RF: 0 zinc sulfate 220 mg Tablet 220 mg PO DAILY RF: 0 magnesium hydroxide [Milk of Magnesia] 400 mg/5 mL Suspension 30 ml PO DAILY PRN (Reason: Constipation) RF: 0 ascorbic acid (vitamin C) 500 mg Tablet 500 mg PO BID RF: 0 pantoprazole 40 mg Tablet,Delayed Release (Dr/Ec) 40 mg PO DAILYBB RF: 0 Fleet Enema 19-7 gram/118 mL Enema 133 ml [place] DAILY PRN (Reason: Constipation) RF: 0 docusate sodium 100 mg Capsule 100 mg PO BID RF: 0 polyethylene glycol 3350 [Miralax] 17 gram/dose Powder 17 g PO QDL PRN (Reason: Constipation) RF: 0 polyethylene glycol 3350 [Miralax] 17 gram/dose Powder 17 g PO DAILY RF: 0 nitrofurantoin monohyd/m-cryst [Macrobid] 100 mg Capsule 100 mg PO BID RF: 0 cholecalciferol (vitamin D3) [Vitamin D3] 50 mcg (2,000 unit) Capsule 50 mcg PO DAILY RF: 0 Therapeutic Multivit/Mineral 1 tab PO DAILY RF: 0 dronabinol [Marinol] 2.5 mg capsule 2.5 mg PO TID RF: 0 famotidine 20 mg tablet 20 mg PO QAM RF: 0 magnesium oxide 400 mg (241.3 mg magnesium) tablet 400 mg PO BID RF: 0 bisacodyl 10 mg suppository 10 mg NH DAILY PRN (Reason: Constipation) RF: 0 Referrals Referrals: Tomas Young MD [Primary Care Provider] - Discharge Problem: Dyspnea Qualifiers: Dyspnea type: unspecified Qualified Code(s): R06.00 - Dyspnea, unspecified
[2020-08-25] MEDS ORDERED: SODIUM CHLORIDE 0.9% 1000ML 1,000 ML IV SCH (21:30)
[2020-08-25 21:34] LABS: Basophils # (auto) 0.02 K/uL (0-0.2); Basophils % (auto) 0.2 %; Eosinophils # (auto) 0.01 K/uL (0-0.5); Eosinophils % (auto) 0.1 %; Hematocrit (blood only) 38.6 % (37-47); Hemoglobin 13.1 g/dL (12.0-16.0); Immature Granulocytes # (auto) 0.09 K/uL (0.00-0.02); Immature Granulocytes % (auto) 0.7 %; Lymphocytes % (auto) 26.2 %; Mean Corpuscular Hemoglobin 34.7 pg (25-34); Mean Corpuscular Hgb Conc 33.9 g/dL (32-36); Mean Corpuscular Volume 102.1 fL (80-100); Monocytes # (auto) 0.91 K/uL (0.11-0.59); Neutrophils # (auto) 8.55 K/uL (1.4-6.5); Neutrophils % (auto) 65.8 %; Platelet Count 353 K/uL (130-400); RDW Coefficient of Variation 17.6 % (11.5-14.5); RDW Standard Deviation 65.1 fL (36.4-46.3); Red Blood Count 3.78 M/uL (4.2-5.4); White Blood Count 12.98 K/uL (4.8-10.8)
[2020-08-25] MEDS ORDERED: SODIUM CHLORIDE 0.9% 1000ML 500 ML IV ONE (21:47)
[2020-08-25 22:04] LABS: Albumin Globulin Ratio 0.6 (0.9-2); Albumin Level 2.1 gm/dl (3.4-5.0); BUN Creatinine Ratio 19.3 (10-20); Calcium 8.9 mg/dl (8.5-10.1); Creatinine Clr Calc Pharmacy 56.8 ml/min; Est GFR (African American) 100.3; Est GFR (Non-African American) 86.6; Globulin 3.3 gm/dl (2.5-4.0); Magnesium 1.9 mg/dl (1.8-2.4); Phosphorus 2.6 mg/dl (2.5-4.9); Total Protein 5.4 gm/dl (6.4-8.2); Troponin I 0.085 ng/ml (0-0.045)
[2020-08-25] MEDS ORDERED: DEXTROSE 50% 50 ML SYRINGE IV ONE ×2 (22:06→22:07)
[2020-08-25 22:25] LABS: Influenza A virus by PCR Negative (Neg); Influenza B virus by PCR Negative (Neg); RSV by PCR Negative (Neg); SARS CoV2 RNA(COVID-19) InHosp NEGATIVE (Negative)
[2020-08-25 22:39] LABS: Base Excess VBG -3.7 mEq/L; HCO3 VBG 21 mmol/L; PCO2 VBG 38 mmHg (38-50); PO2 VBG 22 mmHg; pH VBG 7.36 (7.36-7.41)
[2020-08-25 22:40] LABS: Oxygen Saturation VBG < 60.0 %
[2020-08-25 22:46] LABS: INR 1.3 (0.9-1.1); Partial Thromboplastin Ratio 0.9; Partial Thromboplastin Time 26.1 Seconds (21.0-31.0); Prothrombin Time 13.9 Seconds (9.0-12.0)
[2020-08-25 22:55] LABS: Appearance Urine Clear (Clear); Blood Urine Negative (Negative); Color Urine Dark Yellow; Epithelial Cell Urine Auto >30 /lpf (0-5); Glucose Urine UA Negative (Negative); Ketones Urine 3+ (Negative); Leukocyte Esterase Urine Trace (Negative); Nitrite Urine Negative (Negative); Protein Urine Trace (Negative); RBC Urine Automated 0-4 /hpf (0-4); Specific Gravity Urine 1.017 (1.000-1.030); Urobilinogen Urine Negative (Negative); pH Urine 5.5 (4.5-7.5)
[2020-08-25 23:02] LABS: Bilirubin Urine 1+ (Negative)
--- NOTE | 2020-08-25 23:16 | History & Physical Report ---
Date of Service August 25, 2020 Assessment & Plan (1) Dyspnea: Mrs. Sharma is an 85 yo woman with a PMHx of CVA, hypertension, carotid artery stenosis, GERD, and long-term anticoagulation on rivaroxaban who was recently admitted to [facility] from 08/13/20 to 08/22/20 for hypoxic respiratory distre ss. The cause of her breathing troubles during last admission were thought to be from diaphragmatic compromise, secondary to stercoral colitis and severe fecal retention. Patient was treated with an aggressive bowel regimen, and her breathing subsequently improved. However, after being discharged to [facility] rehab, patient's oxygen requirement gradually increased over the past three days. - no new symptoms consistent with infection (fever/chills, nasal congestion, cough). - No history of underlying lung disease, lifetime non-smoker - CXR on admission appears unchanged from study on 08/21/20. No focal consolidation. WBC mildly elevated, but procal negative. Respiratory Biofire negative. Patient afebrile. Blood cultures pending. Suspicion for PNA low. - CTA from last admission showed no evidence of PE. No unilateral calf swelling. Patient is anticoagulated on Rivaroxaban - acute PE felt to be unlikely. - No history of CHF. ECHO from 08/14/19 showing a normal EF. BNP elevated to 1417 on admission. Patient does have known, small bilateral pleural effusions with bibasilar atelectasis. This was re-demonstrated on CXR on admission - however there appears to be no acute worsening. Patient was given an incentive spirometer to use upon discharge after last admission. Continue incentive spirometry. - patient found to have severe protein calorie malnutrition on admission. Patient reports poor PO intake while at [facility]. Her hypoglycemia on admission favors this etiology. He elevated HR and low BP on presentation that improved with 1 liter of fluids also suggest she was hypovolemic. Overall, suspect breathing troubles are related to failure to thrive (low reserve to fuel respiratory muscles). - patient could not tolerate CPAP at [facility] - patient currently breathing comfortably (O2 sat at 94%) on 15L/min of high flow NC (2) Hypoglycemia: - blood glucose 47 on admission. - improved to 97 with 1 amp D50 - suspect secondary to poor PO intake while at rehab (3) Weakness: - acute on chronic - patient reported a month of progressive weakness upon admission to [facility] on 08/13/20 - suspect related to here concurrent severe protein calorie malnutrition and overall deconditioned state - PT/OT ordered; suspect patient will need to return to [facility] vs. SNF for rehab (4) Severe protein-calorie malnutrition: - albumin low at 2.1 on admission - electrolytes normal - mirtazapine 15mg qhs and Marinol 2.5mg TID for appetite stimulation - continue Mag-Ox and NeutraPhos supplements - continue Boost nutrition supplements - trend BMP (5) Metabolic acidosis: - Bicarb 19 on admission. - Anion gap elevated to 16.8 (corrected for low albumin) - lactate not elevated. Not on isoniazid. No ethylene glycol or methanol consumption (patient has been at [facility]). BUN not elevated (10). Patient was hypoglycemic on arrival (not in DKA). unknown if she has used salicylates. - appropriate respiratory compensation. no other concomitant process. - trend BMP (6) Elevated troponin: - trop elevated to 0.085 on admission - no chest pain on exam - EKG showing NSR, no ST segment changes - repeat level in am - suspect secondary to demand/supply mismatch (7) Fecal retention: - significant fecal retention noted on imaging during last admission - patient had to be manually disimpacted twice during last hospital stay - abdomen is not distended on exam - continue colace 100mg BID - miralax prn - titrate as necessary (8) GERD (gastroesophageal reflux disease): - continue home dose famotidine and pepcid (9) Lower extremity edema: - bilateral, +2 pitting edema on exam - echo from 08/14/20 showing no R sided CHF - suspect related to low albumin and third spacing of fluid (10) Dystrophic nail: - visualized on exam - recommend patient see podiatry as outpatient (11) Anticoagulant long-term use: - on Xarelto due to hx CVA Dispo: Med/Surg w tele. PT/OT ordered Diet: Regular, minced and moist DVT ppx: on Xarelto Code: Full, I discussed with patient at bedside History of Present Illness Primary Care Provider: Estuardo Young MD Katherine is an 85-year-old female with a past medical history of CVA, hypertension, carotid artery stenosis, GERD, and long-term anticoagulation on rivaroxaban. She was recently admitted to [facility] from 08/13/20 to 08/22/20 for acute hypoxic respiratory distress that was ultimately thought to be caused by diaphragmatic compromise, secondary to stercoral colitis and severe fecal retention (distended, stool filled bowel was restricting diagram expansion). She was treated with an aggressive bowel regimen during her recent admission, and was manually disimpacted twice. Her breathing improved with treatment of her fecal retention. Mrs. Sharma was also found have severe protein calorie malnutrition with electrolyses imbalances during her recent admission. She was globally weak and appeared to have a low drive to eat. The appetite stimulants mirtazapine 15mg qhs and Marinol 2.5mg TID were started for this reason. She was ultimately discharged to [facility] for rehab on 08/22/20 - with directions to use Boost and Mag-Ox and Neutra-Phos supplements upon her hospital discharge. While at [facility], Mrs. Sharma said her bowels were quite regular. She had one- two soft BMs per day; she does have occasional left sided abdominal pain when "twisting." She was trialed on CPAP while at [facility], which she could not tolerate - thus she was transitioned to high flow nasal cannula. Over the course of the past three days, her oxygen requirement increased, which ultimately promoted her readmission. Mrs. Sharma denied any fever/chills, cough or nasal congestion. Her only complaint while at [facility] was weakness - she says she would request to be able to rest in the middle of her therapy sessions but the aids would push her to keep going. When asked what her appetite was like at [facility], she said she just ate "a couple of bites, here and there." Social History: Lives in an in-law suite at her son's who is working from home. She is a lifetime non-smoker. No Etoh use. On arrival to the ED, patient was afebrile, HR initially tachycardiac at 112. BP 88/54. RR 18, satting 91 on high flow. Glucose was low at 47, which improved to 97 with an amp of D50. WBC was mildly elevated to 12 with neutrophil predom. Procal not elevated. Respiratory biofire negative for COVID, RSV and influenza. Blood cultures drawn. UA neg for nitrites, trace LE, 1+ bacteria and budding yeast. Lactate normal at 1.8. Hgb normal at 13. MCV 102. Cr normal. Phos normal at 2.6, Mag normal at 1.9. Bicarb low at 19. Anion gap at 16.8 (corrected for low albumin). BNP elevated to 1417. Trop elevated to 0.085. INR at 1.3. AST mildly elevated to 38, ALT normal at 33. CXR showing no focal consolidation, appears unchanged from radiograph on 08/21/20. Patient was given 1 liter of IV normal saline, which resulted in a HR down to 87 and BP to 105/68. Allergies Allergy/AdvReac Type Severity Reaction Status Date / Time sulfamethoxazole Allergy Mild MOUTH SORES Verified 08/13/20 20:07 trimethoprim Allergy Mild MOUTH SORES Verified 08/13/20 20:07 morphine AdvReac Intermediate HEART Verified 08/13/20 20:07 PALPITATIONS,CHEST TIGHTNESS,VOMITING Opioid Analgesics AdvReac Intermediate HEART Uncoded 08/13/20 20:07 PALPITATIONS, CHEST TIGHTNESS, VOMITING Home Medications Medication Instructions Recorded Confirmed Type folic acid 1 mg tablet 1 mg PO DAILY #90 tab 08/28/19 08/25/20 Rx rivaroxaban 15 mg tablet 15 mg PO QPM #90 tab 10/17/19 08/25/20 Rx diclofenac sodium 1 % topical gel 4 g TOPICAL QID #100 g 06/23/20 08/25/20 Rx mirtazapine 15 mg PO HS #30 tab 08/15/20 08/25/20 Rx Therapeutic Multivit/Mineral 1 tab PO DAILY 08/25/20 08/25/20 History acetaminophen 650 mg PO Q4H PRN 08/25/20 08/25/20 History ascorbic acid (vitamin C) 500 mg PO BID 08/25/20 08/25/20 History bisacodyl 10 mg NV DAILY PRN 08/25/20 08/25/20 History cholecalciferol (vitamin D3) 50 mcg PO DAILY 08/25/20 08/25/20 History [Vitamin D3] docusate sodium 100 mg PO BID 08/25/20 08/25/20 History dronabinol [Marinol] 2.5 mg PO TID 08/25/20 08/25/20 History famotidine 20 mg PO QAM 08/25/20 08/25/20 History magnesium hydroxide [Milk of 30 ml PO DAILY PRN 08/25/20 08/25/20 History Magnesia] magnesium oxide 400 mg PO BID 08/25/20 08/25/20 History melatonin 3 mg PO HS 08/25/20 08/25/20 History nitrofurantoin monohyd/m-cryst 100 mg PO BID 08/25/20 08/25/20 History [Macrobid] pantoprazole 40 mg PO DAILYBB 08/25/20 08/25/20 History polyethylene glycol 3350 [Miralax] 17 g PO DAILY 08/25/20 08/25/20 History polyethylene glycol 3350 [Miralax] 17 g PO QDL PRN 08/25/20 08/25/20 History sennosides-docusate sodium 1 tab PO QDL PRN 08/25/20 08/25/20 History [Senokot-S] sodium phosphates [Fleet Enema] 133 ml NV DAILY PRN 08/25/20 08/25/20 History zinc sulfate 220 mg PO DAILY 08/25/20 08/25/20 History Past Med/Surg History Medical History Depression History of arterial thrombosis History of Clostridium difficile colitis Hypertension MRSA (methicillin resistant Staphylococcus aureus) Rheumatic fever Spinal stenosis Tubular adenoma of colon Social History Smoking Status: Never smoker Second Hand Exposure: No; Hx Alcohol Use: No Hx Substance Use: No Preferred Language: Lebanese Communication Ability: Effective Chip Tuner Required: No Beliefs That Will Affect Care: None marital status: Current Living Situation: Rehab Current Living Situation Comment: [facility] current occupational status: retired Other Information That Helps Us Care for You: No Feels Safe at Home: Yes Safety Concerns: Feels Safe At This Time Dental Care, Regularly: No Physical Activity Frequency: Does not Exercise Seatbelt Use: always Sunscreen Use: No Assistive Devices: Wheelchair Review of Systems Constitutional: + weakness and + anorexia; no fever and no chills Respiratory: no cough, no chest congestion and no sputum production Cardiovascular: no chest pain Gastrointestinal: no nausea Physical Exam Constitutional: + thin, + disheveled and cooperative; no acute distress Eyes: + anicteric sclerae ENMT: external ear and nose normal, oropharynx normal Neck: normal visual inspection and trachea midline Respiratory: normal respiratory effort; no respiratory distress, no labored breathing and no cough Auscultation: + diminished lung sounds (bilateral lung bases ); no crackles, no rales, no rhonchi and no wheezes Cardiovascular: RRR, no murmur, no edema Heart Sounds: normal S1 and normal S2 Extremities: + pedal edema (+2 bilaterally ) Gastrointestinal (Abdomen): Inspection/Auscultation: abdomen normal to inspection and normal bowel sounds; abdomen not distended Percussion/Palpation: + abdomen firm (L upper and lower quadrants ); abdomen nontender Skin: no rashes, warm and dry + ecchymosis (B/l antecubital fossa) Neurologic: moves all extremities Psychiatric: A+Ox3, euthymic affect Genitourinary: Redd catheter in place, draining yellow urine without visible blood clots Results & Data Results & Data ([facility]) Vital Signs (Past 12 Hours) Vital Signs Temp Pulse Pulse Resp BP Pulse Ox 08/25/20 22:30 89 19 112/67 98 08/25/20 22:22 98 H 24 100 08/25/20 22:00 87 23 122/67 98 08/25/20 21:31 108 H 18 88/54 L 91 08/25/20 21:27 114 H 24 95 08/25/20 21:11 36.4 C L 112 H 25 H 106/68 93 Supervising Physician Co-Signing Physician Notes Attending addendum: I have physically seen this patient, have supervised the medical residents activities, and agree with the H&P unless as otherwise noted. Assessment and Plan: Elevated troponin- The patient will be admitted to telemetry for serial cardiac enzymes, serial EKG's, cardiac rhythm monitoring and a 2-D echocardiogram with Dopplers. 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 Resident Activity Tracking Resident Involvement: Resident Care Provided Care Provided: Adult Hospital Medicine (1) Dyspnea Dyspnea type: unspecified Qualified Code(s): R06.00 - Dyspnea, unspecified
[2020-08-25 23:53] LABS: Bacteria Urine Automated 1+ (Negative); Mucus Urine Present (None Prsent)
[2020-08-26] MEDS ORDERED: ONDANSETRON INJ 2 MG/ML 2 ML VIAL IV PRN (00:19)
[2020-08-26] MEDS ORDERED: POLYETHYLENE (MIRALAX) 17 GM PACK PO PRN (00:19)
[2020-08-26] MEDS ORDERED: MAGNESIUM HYDROXIDE SUSP 30 ML UDC PO PRN (00:19)
[2020-08-26] MEDS ORDERED: INFLUENZA VACCINE HIGH DOSE 65+ 0.7 ML SYR IM ONE (01:16)
[2020-08-26] MEDS ORDERED: INFLUENZA ADMINISTRATION CHARGE ONE (01:16)
[2020-08-26] MEDS: PANTOprazole 40 MG TAB PO SCH (06:14)
[2020-08-26] MEDS ORDERED: GLUCAGON FOR INJ 1 MG VIAL SQ PRN (06:56)
[2020-08-26] MEDS ORDERED: GLUCOSE 10 TABS/TUBE PO PRN (06:56)
[2020-08-26] MEDS ORDERED: GLUCOSE 40% GEL 15 GM TUBE PO PRN (06:56)
[2020-08-26] MEDS ORDERED: DEXTROSE 50% 50 ML SYRINGE IV PRN (06:56)
[2020-08-26 07:00] LABS: Basophils # (auto) 0.01 K/uL (0-0.2); Basophils % (auto) 0.1 %; Eosinophils # (auto) 0.03 K/uL (0-0.5); Eosinophils % (auto) 0.3 %; Hematocrit (blood only) 32.3 % (37-47); Hemoglobin 10.9 g/dL (12.0-16.0); Immature Granulocytes # (auto) 0.06 K/uL (0.00-0.02); Immature Granulocytes % (auto) 0.6 %; Lymphocytes # (auto) 2.63 K/uL (1.2-3.4); Lymphocytes % (auto) 27.8 %; Mean Corpuscular Hemoglobin 34.4 pg (25-34); Mean Corpuscular Hgb Conc 33.7 g/dL (32-36); Mean Corpuscular Volume 101.9 fL (80-100); Mean Platelet Volume 9.2 fL (7.4-10.4); Monocytes # (auto) 0.74 K/uL (0.11-0.59); Monocytes % (auto) 7.8 %; Neutrophils % (auto) 63.4 %; Platelet Count 318 K/uL (130-400); RDW Coefficient of Variation 17.5 % (11.5-14.5); RDW Standard Deviation 65.5 fL (36.4-46.3); Red Blood Count 3.17 M/uL (4.2-5.4); White Blood Count 9.47 K/uL (4.8-10.8)
--- NOTE | 2020-08-26 07:33 | XRay Report ---
XR chest 1V portable CLINICAL HISTORY: SEPSIS COMPARISON STUDY: Chest CT August 19, 2020. Chest radiograph August 21, 2020. FINDINGS: There is no pneumothorax. Small bilateral pleural effusions are noted. Extensive right lowe r lung airspace opacity has progressed. Left lower lung airspace opacity is again noted. There is no pneumothorax. Cardiomediastinal silhouette is stable. Left sided central line has been removed. Posto perative findings within the left shoulder incidentally noted. There is pulmonary vascular congestion . IMPRESSION: 1. Increase in extensive bibasilar opacities with suspected right lower lobe volume loss. The finding s may reflect atelectasis or consolidation. Radiographic follow-up is recommended. 2. Small bilateral pleural effusions. 3. Pulmonary vascular congestion. ACT 112: Negative or not required by law. Electronically signed by: Rufino Graves M.D. 08/26/2020 7:32 AM
[2020-08-26 07:40] LABS: Albumin Globulin Ratio 0.6 (0.9-2); Albumin Level 1.6 gm/dl (3.4-5.0); BUN Creatinine Ratio 21.6 (10-20); Bilirubin,Total 0.7 mg/dl (0.2-1); Creatinine Clr Calc Pharmacy 87.4 ml/min; Est GFR (African American) 109.2; Est GFR (Non-African American) 94.2; Globulin 2.6 gm/dl (2.5-4.0); Potassium 3.4 mmol/L (3.5-5.1); Total Protein 4.2 gm/dl (6.4-8.2); Troponin I 0.1 ng/ml (0-0.045)
[2020-08-26] MEDS: DOCUSATE SODIUM 100 MG CAP PO SCH ×2 (08:44→20:45)
[2020-08-26] MEDS: FAMOTIDINE 20 MG TAB PO SCH (08:44)
[2020-08-26] MEDS: MAGNESIUM OXIDE 400 MG TAB PO SCH ×2 (08:44→20:45)
[2020-08-26] MEDS ORDERED: MEDICAL MARIJUANA PO SCH (09:00)
[2020-08-26] MEDS ORDERED: ENOXAPARIN INJ 30 MG/0.3 ML SYR SQ SCH (09:00)
--- NOTE | 2020-08-26 09:56 | Electrocardiogram Report ---
Test Reason : Blood Pressure : / mmHG Vent. Rate : 106 BPM Atrial Rate : 106 BPM P-R Int : 128 ms QRS Dur : 068 ms QT Int : 326 ms P-R-T Axes : 066 -34 056 degrees QTc Int : 433 ms Poor data quality, interpretation may be adversely affected Sinus tachycardia with Premature atrial complexes Left axis deviation Low voltage QRS Nonspecific ST and T wave abnormality Abnormal ECG When compared with ECG of 14-AUG-2020 08:24, Premature atrial complexes are now Present QRS axis Shifted left QT has shortened Confirmed by Estuardo Peres ([id number]) on 08/26/2020 9:56:06 AM Referred By: REFERRED SELF Confirmed By:Armando Peres
[2020-08-26] MEDS: D5W AND NSS 1,000 ML IV SCH ×2 (10:27→20:45)
--- NOTE | 2020-08-26 10:38 | Hospitalist Progress Note ---
Date of Service August 26, 2020 Assessment & Plan (1) Dyspnea: Mrs. Sharma is an 85 yo woman with a PMHx of CVA, hypertension, carotid artery stenosis, GERD, and long-term anticoagulation on rivaroxaban who was recently admitted to [facility] from 08/13/20 to 08/22/20 for hypoxic respiratory distre ss. Readmitted from [facility] for worsening oxygen requirements. Increasing Oxygen Requirement - No history of underlying lung disease, lifetime non-smoker - CXR, CTA last admission showing basilar atelectasis without consolidation. no indications for infection. - No hx CHF. - O2 status improves with direction to breathe deeply and sitting upright. - mostly breathes through mouth so NC less effective Severe Protein Calore Malnutrition - consult to dietary for increased calorie consumption and directions - boost supplement TID, regular diet - encourage PO intake. Seen by speech last admission-- no problem swallowing - no glycogen stores in liver leading to low BSG without proper PO intake-- D5 fluids - mirtazapine 15 mg HS and marinol 2.5 mg TID for appetite stimulation Elevated Troponin - chronic low level elevation - no ST segment elevations - no complaints of chest pain Bowel regimen - continue magox and sennakot, miralax GERD cont pepcid DVT ppx: rivaroxaban FEN/GI: regular diet + supplements/Famotidine, appetite stimulants, D5 + NS @ 100 ml/hr Code Status: Full Code Dispo: SNF vs Rehab pending PT/OT evals (2) Hypoglycemia: (3) Weakness: (4) Severe protein-calorie malnutrition: (5) Elevated troponin: (6) GERD (gastroesophageal reflux disease): (7) Lower extremity edema: (8) Dystrophic nail: (9) Anticoagulant long-term use: (10) Acute hypoxemic respiratory failure: Admission and Anticipated Discharge Date Admission Date: August 25, 2020 Supervising Physician Co-Signing Physician Notes Attending attestation Pt seen and examined in concert with Dr. Higgins. In agreement with the documented findings as noted in the resident documentation with any exceptions or additions as noted here. Resting in bed - significant difficulty with hearing and vision which limits effective history - motivation varies during conversation - would like to be more healthy to interact with great grandchildren, but also resistant to POI, working with PT with very external locus of control. On examination, S1/S2 nl RRR no MCG. decreased air movement overall, worse at bases. Abd NT/ND, BS +ve throughout Acute on chronic hypoxic respiratory failure with increasing O2 requirement - O2 support per protocol, strongly encourage working with PT, use of supplemental O2 Counseled extensively for longterm conditional improvement requirements including appropriate caloric intake and working with PT with the goal of improved function and respiration. Revisit for code status discussion/goals of care based on level of frailty and current O2 need, as well as motivation for improvement. Else see resident documentation as noted. Subjective no complaints this AM. Discussed goals of seeing great great grandchildren and needing to eat, breath deeper and eat more in order to gain strength and work with physical therapy. she is somewhat agreeable but still does not completely understand the relationship between trying to gain strength and getting out of the hospital. Review of Systems Constitutional: no fever, no chills, no body aches and no fatigue Respiratory: no cough and no dyspnea Cardiovascular: no chest pain, no dyspnea and no edema Gastrointestinal: no abdominal pain, no nausea, no vomiting, no constipation and no diarrhea/loose stools Physical Exam Physical Exam: Constitutional: thin, cachectic woman laying in bed, Eyes: EOMI, pupils equal and reactive bilaterally, no scleral icterus Cardiac: RRR, no murmurs, gallops or rubs. Normal S1, S2 Pulm: BL CTA, breathing on nonrebreather 6L,shallow breaths, breathes deeply when told to Abd: soft, nontender, nondistended, normal bowel sounds, no rebound or guarding Extremities: 2+ peripheral pulses, no edema Neuro: no focal deficits, moving all 4 limbs, A&Ox3 Results & Data Results & Data ([facility]) Vital Signs (Past 12 Hours) Vital Signs Temp Pulse Pulse Resp BP BP Pulse Ox 08/26/20 08:40 73 08/26/20 07:34 36.4 C L 81 18 113/69 94 08/26/20 05:49 92 08/26/20 05:48 88 L 08/26/20 05:38 77 16 96 08/26/20 05:01 14 98 08/26/20 04:25 36.6 C 80 20 119/76 94 08/26/20 03:22 16 97 08/26/20 03:07 79 16 98 08/26/20 02:58 91 H 08/26/20 00:19 36.5 C 86 20 117/79 98 08/25/20 23:32 87 20 105/68 94 Pulse Ox 08/26/20 08:40 08/26/20 07:34 08/26/20 05:49 08/26/20 05:48 08/26/20 05:38 08/26/20 05:01 08/26/20 04:25 08/26/20 03:22 08/26/20 03:07 08/26/20 02:58 08/26/20 00:19 98 08/25/20 23:32 Laboratory Results WBC 9.47 K/uL (4.8-10.8) 08/26/20 06:22 RBC 3.17 M/uL (4.2-5.4) L 08/26/20 06:22 Hgb 10.9 g/dL (12.0-16.0) L 08/26/20 06:22 Hct 32.3 % (37-47) L 08/26/20 06:22 MCV 101.9 fL (80-100) H 08/26/20 06:22 MCH 34.4 pg (25-34) H 08/26/20 06:22 MCHC 33.7 g/dL (32-36) 08/26/20 06:22 RDW Std Deviation 65.5 fL (36.4-46.3) H 08/26/20 06:22 RDW Coeff of Steve 17.5 % (11.5-14.5) H 08/26/20 06:22 Plt Count 318 K/uL (130-400) 08/26/20 06:22 MPV 9.2 fL (7.4-10.4) 08/26/20 06:22 Immature Gran % (Auto) 0.6 % 08/26/20 06:22 Neut % (Auto) 63.4 % 08/26/20 06:22 Lymph % (Auto) 27.8 % 08/26/20 06:22 [place] % (Auto) 7.8 % 08/26/20 06:22 Eos % (Auto) 0.3 % 08/26/20 06:22 Baso % (Auto) 0.1 % 08/26/20 06:22 Neut # (Auto) 6.00 K/uL (1.4-6.5) 08/26/20 06:22 Lymph # (Auto) 2.63 K/uL (1.2-3.4) 08/26/20 06:22 [place] # (Auto) 0.74 K/uL (0.11-0.59) H 08/26/20 06:22 Eos # (Auto) 0.03 K/uL (0-0.5) 08/26/20 06:22 Baso # (Auto) 0.01 K/uL (0-0.2) 08/26/20 06:22 Immature Gran # (Auto) 0.06 K/uL (0.00-0.02) H 08/26/20 06:22 PT 13.9 Seconds (9.0-12.0) H 08/25/20 22:24 INR 1.3 (0.9-1.1) H 08/25/20 22:24 APTT 26.1 Seconds (21.0-31.0) 08/25/20 22:24 PTT Ratio 0.9 08/25/20 22:24 VBG pH 7.36 (7.36-7.41) 08/25/20 22:24 VBG pCO2 38 mmHg (38-50) 08/25/20 22:24 VBG pO2 22 mmHg 08/25/20 22:24 VBG HCO3 21 mmol/L 08/25/20 22:24 VBG O2 Saturation < 60.0 % 08/25/20 22:24 VBG Base Excess -3.7 mEq/L 08/25/20 22:24 Barometric Pressure 727.0 mm/Hg 08/25/20 22:24 Sodium 137 mmol/L (136-145) 08/26/20 06:22 Potassium 3.4 mmol/L (3.5-5.1) L 08/26/20 06:22 Chloride 108 mmol/L (98-107) H 08/26/20 06:22 Carbon Dioxide 20 mmol/L (21-32) L 08/26/20 06:22 Anion Gap 10.0 (3-11) 08/26/20 06:22 BUN 9 mg/dl (7-18) 08/26/20 06:22 Creatinine 0.41 mg/dl (0.6-1.2) L 08/26/20 06:22 Est Cr Clr Drug Dosing 87.4 ml/min 08/26/20 06:22 Est GFR ( Amer) 109.2 08/26/20 06:22 Est GFR (Non-Af Amer) 94.2 08/26/20 06:22 BUN/Creatinine Ratio 21.6 (10-20) H 08/26/20 06:22 Glucose 57 mg/dl (70-99) L 08/26/20 06:22 POC Glucose 74 mg/dl (70-99) 08/26/20 01:24 Lactate 1.8 mmol/L (0.4-2.0) 08/25/20 22:24 Calcium 8.0 mg/dl (8.5-10.1) L 08/26/20 06:22 Phosphorus 2.6 mg/dl (2.5-4.9) 08/26/20 06:22 Magnesium 1.8 mg/dl (1.8-2.4) 08/26/20 06:22 Total Bilirubin 0.7 mg/dl (0.2-1) 08/26/20 06:22 AST 31 U/L (15-37) 08/26/20 06:22 ALT 28 U/L (12-78) 08/26/20 06:22 Alkaline Phosphatase 90 U/L (45-117) 08/26/20 06:22 Troponin I 0.081 ng/ml (0-0.045) H* 08/26/20 11:41 NT-Pro-B Natriuret Pep 1417 pg/ml (0-1800) 08/25/20 21:25 Total Protein 4.2 gm/dl (6.4-8.2) L D 08/26/20 06:22 Albumin 1.6 gm/dl (3.4-5.0) L 08/26/20 06:22 Globulin 2.6 gm/dl (2.5-4.0) 08/26/20 06:22 Albumin/Globulin Ratio 0.6 (0.9-2) L 08/26/20 06:22 Procalcitonin < 0.05 ng/ml (0-0.5) 08/25/20 22:24 Urine Color Dark Yellow 08/25/20 22:14 Urine Appearance Clear (Clear) 08/25/20 22:14 Urine pH 5.5 (4.5-7.5) 08/25/20 22:14 Ur Specific [place] 1.017 (1.000-1.030) 08/25/20 22:14 Urine Protein Trace (Negative) H 08/25/20 22:14 Urine Glucose (UA) Negative (Negative) 08/25/20 22:14 Urine Ketones 3+ (Negative) H 08/25/20 22:14 Urine Blood Negative (Negative) 08/25/20 22:14 Urine Nitrite Negative (Negative) 08/25/20 22:14 Urine Bilirubin 1+ (Negative) H 08/25/20 22:14 Urine Urobilinogen Negative (Negative) 08/25/20 22:14 Ur Leukocyte Esterase Trace (Negative) H 08/25/20 22:14 Urine WBC (Auto) 10-30 /hpf (0-5) H 08/25/20 22:14 Urine RBC (Auto) 0-4 /hpf (0-4) 08/25/20 22:14 U Hyaline Cast (Auto) 5-10 /lpf (0-5) H 08/25/20 22:14 U Epithel Cells (Auto) >30 /lpf (0-5) H 08/25/20 22:14 Urine Bacteria (Auto) 1+ (Negative) H 08/25/20 22:14 Ur Renal Epithelial Cell Not Reportable 08/25/20 22:14 Urine Mucus Present (None Prsent) A 08/25/20 22:14 Urine Yeast Budding (None Prsent) A 08/25/20 22:14 Nasal Screen MRSA (PCR) Positive (Negative) A 08/26/20 01:00 COVID-19 Eval Order CovFluRsv at [facility] 08/25/20 21:32 SARS-CoV-2 (PCR) NEGATIVE (Negative) 08/25/20 21:32 Influenza Type A (PCR) Negative (Neg) 08/25/20 21:32 Influenza Type B (PCR) Negative (Neg) 08/25/20 21:32 RSV (RT-PCR) Negative (Neg) 08/25/20 21:32 Resident Activity Tracking Resident Involvement: Resident Care Provided Care Provided: Adult Hospital Medicine (1) Dyspnea Dyspnea type: unspecified Qualified Code(s): R06.00 - Dyspnea, unspecified
[2020-08-26] MEDS: POTASSIUM CHLORIDE / WTR 10 MEQ/100 ML PLCT IV SCH ×3 (11:23→13:18)
[2020-08-26 11:44] LABS: Magnesium 1.8 mg/dl (1.8-2.4); Phosphorus 2.6 mg/dl (2.5-4.9)
[2020-08-26] MEDS: RIVAROXABAN 15 MG TAB PO SCH (17:04)
[2020-08-26] MEDS: MIRTAZAPINE TAB 15 MG TAB PO SCH (20:45)
[2020-08-26] MEDS: MELATONIN 3 MG TAB PO SCH (20:45)
--- NOTE | 2020-08-27 01:52 | Billing Data ---
Date of Service August 27, 2020 Coding Level of Care Code 01285 OBS Care - Level 3
[2020-08-27] MEDS: PANTOprazole 40 MG TAB PO SCH (05:32)
[2020-08-27] MEDS: D5W AND NSS 1,000 ML IV SCH ×3 (06:11→18:06)
[2020-08-27] MEDS: MAGNESIUM OXIDE 400 MG TAB PO SCH ×2 (09:07→20:58)
[2020-08-27] MEDS: FAMOTIDINE 20 MG TAB PO SCH (09:08)
[2020-08-27] MEDS: ACETAMINOPHEN 325 MG TAB PO PRN (09:39)
[2020-08-27] MEDS: DOCUSATE SODIUM 100 MG CAP PO SCH ×2 (09:40→20:58)
--- NOTE | 2020-08-27 13:20 | Hospitalist Progress Note ---
Date of Service August 27, 2020 Assessment & Plan (1) Dyspnea: Mrs. Sharma is an 85 yo woman with a PMHx of CVA, hypertension, carotid artery stenosis, GERD, and long-term anticoagulation on rivaroxaban who was recently admitted to [facility] from 08/13/20 to 08/22/20 for hypoxic respiratory distre ss. [facility] requirements. Goals of Care Ongoing discussions regarding being Full Code and goals of ongoing care Emphasizing importance of quality of life at home/SNF with the understanding of consequences if DNR/DNI Pt describes not wanting to do PT and not having large desire to eat food Increasing Oxygen Requirement secondary to weakness - No history of underlying lung disease, lifetime non-smoker - CXR, CTA last admission showing basilar atelectasis without consolidation. no indications for infection. - No hx CHF. - O2 status improves with direction to breathe deeply and sitting upright. - mostly breathes through mouth so NC less effective Severe Protein Calore Malnutrition - consult to dietary for increased calorie consumption and directions - boost supplement TID, regular diet - encourage PO intake. Seen by speech last admission-- no problem swallowing - no glycogen stores in liver leading to low BSG without proper PO intake-- D5 fluids - mirtazapine 15 mg HS and marinol 2.5 mg TID for appetite stimulation - scheduled sofran IV half hour prior to meals, phenergan IV PRN for nausea Elevated Troponin - chronic low level elevation - no ST segment elevations - no complaints of chest pain Bowel regimen - continue magox and sennakot, miralax to keep bowels moving GERD cont pepcid BID DVT ppx: rivaroxaban FEN/GI: regular diet + supplements/Famotidine, appetite stimulants, D5 + NS @ 80ml/hr Code Status: Full Code Dispo: SNF vs home pending code status and goals of care discussions (2) Hypoglycemia: (3) Weakness: (4) Severe protein-calorie malnutrition: (5) Elevated troponin: (6) GERD (gastroesophageal reflux disease): (7) Lower extremity edema: (8) Dystrophic nail: (9) Anticoagulant long-term use: (10) Acute hypoxemic respiratory failure: Admission and Anticipated Discharge Date Admission Date: August 25, 2020 Supervising Physician Co-Signing Physician Notes Attending attestation Pt seen and examined in concert with Dr. Higgins. In agreement with the documented findings as noted in the resident documentation with any exceptions or additions as noted here. Unable to tolerate even sips of boost without nausea, though does report good appetite. On examination, S1/S2 nl RRR no MCG. CTAB. Abd NT/ND BS+ve Acute on chronic respiratory failure with weakness & severe protein calorie malnutrition - still declining work with PT. Extensive conversations re: goals of care, patient does not want to talk about . Increase antinausea regimen. Continue appetite stimulant regimen. Else see resident documentation as noted. Subjective continues to have trouble eating more than a few bites of food. says that she feels nauseous after having a few sips. visibly uncomfortable sipping on boost. discussed code status, goals of care extensively with between her, myself, dr. huizar and dr. cardona. Review of Systems Respiratory: no cough and no dyspnea Gastrointestinal: + nausea; no abdominal pain, no vomiting, no constipation and no diarrhea/loose stools Physical Exam Physical Exam: Constitutional: thin, cachectic woman laying in bed, Eyes: EOMI, pupils equal and reactive bilaterally, no scleral icterus Cardiac: RRR, no murmurs, gallops or rubs. Normal S1, S2 Pulm: BL CTA, breathing on nasal cannula 3L,shallow breaths, breathes deeply when told to Abd: soft, nontender, nondistended, normal bowel sounds, no rebound or guarding Extremities:thin extremities Neuro: no focal deficits, moving all 4 limbs, A&Ox3 Results & Data Results & Data ([facility]) Vital Signs (Past 12 Hours) Vital Signs Temp Pulse Resp BP Pulse Ox 08/27/20 07:21 36.4 C L 75 18 119/75 98 08/27/20 04:57 36.6 C 94 H 18 102/58 L 96 Laboratory Results WBC 9.47 K/uL (4.8-10.8) 08/26/20 06:22 RBC 3.17 M/uL (4.2-5.4) L 08/26/20 06:22 Hgb 10.9 g/dL (12.0-16.0) L 08/26/20 06:22 Hct 32.3 % (37-47) L 08/26/20 06:22 MCV 101.9 fL (80-100) H 08/26/20 06:22 MCH 34.4 pg (25-34) H 08/26/20 06:22 MCHC 33.7 g/dL (32-36) 08/26/20 06:22 RDW Std Deviation 65.5 fL (36.4-46.3) H 08/26/20 06:22 RDW Coeff of Steve 17.5 % (11.5-14.5) H 08/26/20 06:22 Plt Count 318 K/uL (130-400) 08/26/20 06:22 MPV 9.2 fL (7.4-10.4) 08/26/20 06:22 Immature Gran % (Auto) 0.6 % 08/26/20 06:22 Neut % (Auto) 63.4 % 08/26/20 06:22 Lymph % (Auto) 27.8 % 08/26/20 06:22 [place]pson % (Auto) 7.8 % 08/26/20 06:22 Eos % (Auto) 0.3 % 08/26/20 06:22 Baso % (Auto) 0.1 % 08/26/20 06:22 Neut # (Auto) 6.00 K/uL (1.4-6.5) 08/26/20 06:22 Lymph # (Auto) 2.63 K/uL (1.2-3.4) 08/26/20 06:22 [place]pson # (Auto) 0.74 K/uL (0.11-0.59) H 08/26/20 06:22 Eos # (Auto) 0.03 K/uL (0-0.5) 08/26/20 06:22 Baso # (Auto) 0.01 K/uL (0-0.2) 08/26/20 06:22 Immature Gran # (Auto) 0.06 K/uL (0.00-0.02) H 08/26/20 06:22 PT 13.9 Seconds (9.0-12.0) H 08/25/20 22:24 INR 1.3 (0.9-1.1) H 08/25/20 22:24 APTT 26.1 Seconds (21.0-31.0) 08/25/20 22:24 PTT Ratio 0.9 08/25/20 22:24 VBG pH 7.36 (7.36-7.41) 08/25/20 22:24 VBG pCO2 38 mmHg (38-50) 08/25/20 22:24 VBG pO2 22 mmHg 08/25/20 22:24 VBG HCO3 21 mmol/L 08/25/20 22:24 VBG O2 Saturation < 60.0 % 08/25/20 22:24 VBG Base Excess -3.7 mEq/L 08/25/20 22:24 Barometric Pressure 727.0 mm/Hg 08/25/20 22:24 Sodium 137 mmol/L (136-145) 08/26/20 06:22 Potassium 3.4 mmol/L (3.5-5.1) L 08/26/20 06:22 Chloride 108 mmol/L (98-107) H 08/26/20 06:22 Carbon Dioxide 20 mmol/L (21-32) L 08/26/20 06:22 Anion Gap 10.0 (3-11) 08/26/20 06:22 BUN 9 mg/dl (7-18) 08/26/20 06:22 Creatinine 0.41 mg/dl (0.6-1.2) L 08/26/20 06:22 Est Cr Clr Drug Dosing 87.4 ml/min 08/26/20 06:22 Est GFR ( Amer) 109.2 08/26/20 06:22 Est GFR (Non-Af Amer) 94.2 08/26/20 06:22 BUN/Creatinine Ratio 21.6 (10-20) H 08/26/20 06:22 Glucose 57 mg/dl (70-99) L 08/26/20 06:22 POC Glucose 79 mg/dl (70-99) 08/27/20 11:31 Lactate 1.8 mmol/L (0.4-2.0) 08/25/20 22:24 Calcium 8.0 mg/dl (8.5-10.1) L 08/26/20 06:22 Phosphorus 2.6 mg/dl (2.5-4.9) 08/26/20 06:22 Magnesium 1.8 mg/dl (1.8-2.4) 08/26/20 06:22 Total Bilirubin 0.7 mg/dl (0.2-1) 08/26/20 06:22 AST 31 U/L (15-37) 08/26/20 06:22 ALT 28 U/L (12-78) 08/26/20 06:22 Alkaline Phosphatase 90 U/L (45-117) 08/26/20 06:22 Troponin I 0.081 ng/ml (0-0.045) H* 08/26/20 11:41 NT-Pro-B Natriuret Pep 1417 pg/ml (0-1800) 08/25/20 21:25 Total Protein 4.2 gm/dl (6.4-8.2) L D 08/26/20 06:22 Albumin 1.6 gm/dl (3.4-5.0) L 08/26/20 06:22 Globulin 2.6 gm/dl (2.5-4.0) 08/26/20 06:22 Albumin/Globulin Ratio 0.6 (0.9-2) L 08/26/20 06:22 Procalcitonin < 0.05 ng/ml (0-0.5) 08/25/20 22:24 Urine Color Dark Yellow 08/25/20 22:14 Urine Appearance Clear (Clear) 08/25/20 22:14 Urine pH 5.5 (4.5-7.5) 08/25/20 22:14 Ur Specific [place] 1.017 (1.000-1.030) 08/25/20 22:14 Urine Protein Trace (Negative) H 08/25/20 22:14 Urine Glucose (UA) Negative (Negative) 08/25/20 22:14 Urine Ketones 3+ (Negative) H 08/25/20 22:14 Urine Blood Negative (Negative) 08/25/20 22:14 Urine Nitrite Negative (Negative) 08/25/20 22:14 Urine Bilirubin 1+ (Negative) H 08/25/20 22:14 Urine Urobilinogen Negative (Negative) 08/25/20 22:14 Ur Leukocyte Esterase Trace (Negative) H 08/25/20 22:14 Urine WBC (Auto) 10-30 /hpf (0-5) H 08/25/20 22:14 Urine RBC (Auto) 0-4 /hpf (0-4) 08/25/20 22:14 U Hyaline Cast (Auto) 5-10 /lpf (0-5) H 08/25/20 22:14 U Epithel Cells (Auto) >30 /lpf (0-5) H 08/25/20 22:14 Urine Bacteria (Auto) 1+ (Negative) H 08/25/20 22:14 Ur Renal Epithelial Cell Not Reportable 08/25/20 22:14 Urine Mucus Present (None Prsent) A 08/25/20 22:14 Urine Yeast Budding (None Prsent) A 08/25/20 22:14 Nasal Screen MRSA (PCR) Positive (Negative) A 08/26/20 01:00 COVID-19 Eval Order CovFluRsv at [facility] 08/25/20 21:32 SARS-CoV-2 (PCR) NEGATIVE (Negative) 08/25/20 21:32 Influenza Type A (PCR) Negative (Neg) 08/25/20 21:32 Influenza Type B (PCR) Negative (Neg) 08/25/20 21:32 RSV (RT-PCR) Negative (Neg) 08/25/20 21:32 Resident Activity Tracking Resident Involvement: Resident Care Provided Care Provided: Adult Hospital Medicine (1) Dyspnea Dyspnea type: unspecified Qualified Code(s): R06.00 - Dyspnea, unspecified
[2020-08-27] MEDS: RIVAROXABAN 15 MG TAB PO SCH (16:15)
[2020-08-27] MEDS ORDERED: PROMETHAZINE HCL 12.5 MG in SODIUM CHLORIDE 0.9% 50 ML IV PRN (16:28)
[2020-08-27] MEDS: MIRTAZAPINE TAB 15 MG TAB PO SCH (20:58)
[2020-08-27] MEDS: FAMOTIDINE 20 MG in SYRINGE 3 ML IV SCH (21:04)
[2020-08-27] MEDS: MELATONIN 3 MG TAB PO SCH (21:04)
[2020-08-27] MEDS: ONDANSETRON INJ 2 MG/ML 2 ML VIAL IV SCH (21:05)
[2020-08-28] MEDS: D5W AND NSS 1,000 ML IV SCH ×2 (03:52→16:47)
[2020-08-28 08:03] LABS: Basophils # (auto) 0.02 K/uL (0-0.2); Basophils % (auto) 0.3 %; Eosinophils # (auto) 0.03 K/uL (0-0.5); Eosinophils % (auto) 0.4 %; Hematocrit (blood only) 32.5 % (37-47); Hemoglobin 10.8 g/dL (12.0-16.0); Immature Granulocytes # (auto) 0.04 K/uL (0.00-0.02); Immature Granulocytes % (auto) 0.6 %; Lymphocytes # (auto) 2.26 K/uL (1.2-3.4); Lymphocytes % (auto) 33.9 %; Mean Corpuscular Hemoglobin 34.2 pg (25-34); Mean Corpuscular Hgb Conc 33.2 g/dL (32-36); Mean Corpuscular Volume 102.8 fL (80-100); Mean Platelet Volume 8.7 fL (7.4-10.4); Neutrophils # (auto) 3.72 K/uL (1.4-6.5); Neutrophils % (auto) 55.8 %; Platelet Count 309 K/uL (130-400); RDW Coefficient of Variation 17.8 % (11.5-14.5); RDW Standard Deviation 67.1 fL (36.4-46.3); Red Blood Count 3.16 M/uL (4.2-5.4); White Blood Count 6.67 K/uL (4.8-10.8)
[2020-08-28] MEDS: ONDANSETRON INJ 2 MG/ML 2 ML VIAL IV SCH ×4 (08:36→20:58)
[2020-08-28] MEDS: DOCUSATE SODIUM 100 MG CAP PO SCH ×2 (08:36→20:57)
[2020-08-28] MEDS: MAGNESIUM OXIDE 400 MG TAB PO SCH ×2 (08:37→20:58)
[2020-08-28 08:38] LABS: Albumin Level 1.5 gm/dl (3.4-5.0); BUN Creatinine Ratio 13.4 (10-20); Calcium 8.1 mg/dl (8.5-10.1); Creatinine Clr Calc Pharmacy 70.5 ml/min; Est GFR (African American) 101.6; Est GFR (Non-African American) 87.7; Potassium 3.3 mmol/L (3.5-5.1)
[2020-08-28 08:41] LABS: Albumin Globulin Ratio 0.6 (0.9-2); Bilirubin,Total 0.6 mg/dl (0.2-1); Globulin 2.4 gm/dl (2.5-4.0); Total Protein 3.9 gm/dl (6.4-8.2)
[2020-08-28] MEDS: FAMOTIDINE 20 MG in SYRINGE 3 ML IV SCH ×2 (08:42→21:03)
--- NOTE | 2020-08-28 16:21 | Palliative Care Consultation ---
Date of Consultation August 28, 2020 Assessment & Plan (1) Palliative care encounter: I talked with Mrs. Sharma about how she has been coping with her illness. She feels that she is coping well and has good family support. She would like to be stronger and more mobile. The things that she enjoys most in life are being with her family and shopping. I asked her what would make life not worth living for her and she did not feel that there were any limitations to this as long as she was able to enjoy time with her family. She tells me that she likes living too much to think about dying and would want to continue the care that she is currently receiving. Based on my discussion with her today, her current code status is consistent with her goals. We discussed the likelihood that interventions may not be successful in the event that she would need resuscitation. She is aware of this but indicates that she would want to try. When I asked her if there were any limitations to her care that she could foresee, the stated that only if she were not able to respond and lead a meani ngful life. History of Present Illness Reason for Consultation: goals of care Requesting Physician: Dr Das Attending Physician: Kory Wick, DO History of Present Illness 85 yo lady with h/o CVA, hypertension who was hospitalized earlier this month with hypoxia and fecal impaction. She has protein calorie malnutrition and reports feeling hungry but gags with eating and has had poor po intake. She is asking me about when the dinner tray will be arriving. She had been discharged to [facility] for rehab but was readmitted with hypoxia. She is on O2 by nasal cannula and continuous pulse oximetry, satting in the mid to low 90s. She denies feeling short of breath but reports that she has sudden onset of shortness of breath with no particular triggers. Allergies Allergy/AdvReac Type Severity Reaction Status Date / Time sulfamethoxazole Allergy Mild MOUTH SORES Verified 08/13/20 20:07 trimethoprim Allergy Mild MOUTH SORES Verified 08/13/20 20:07 morphine AdvReac Intermediate HEART Verified 08/13/20 20:07 PALPITATIONS,CHEST TIGHTNESS,VOMITING Opioid Analgesics AdvReac Intermediate HEART Uncoded 08/13/20 20:07 PALPITATIONS, CHEST TIGHTNESS, VOMITING Home Medications Medication Instructions Recorded Confirmed Type folic acid 1 mg tablet 1 mg PO DAILY #90 tab 08/28/19 08/25/20 Rx rivaroxaban 15 mg tablet 15 mg PO QPM #90 tab 10/17/19 08/25/20 Rx diclofenac sodium 1 % topical gel 4 g TOPICAL QID #100 g 06/23/20 08/25/20 Rx mirtazapine 15 mg PO HS #30 tab 08/15/20 08/25/20 Rx Therapeutic Multivit/Mineral 1 tab PO DAILY 08/25/20 08/25/20 History acetaminophen 650 mg PO Q4H PRN 08/25/20 08/25/20 History ascorbic acid (vitamin C) 500 mg PO BID 08/25/20 08/25/20 History bisacodyl 10 mg MI DAILY PRN 08/25/20 08/25/20 History cholecalciferol (vitamin D3) 50 mcg PO DAILY 08/25/20 08/25/20 History [Vitamin D3] docusate sodium 100 mg PO BID 08/25/20 08/25/20 History dronabinol [Marinol] 2.5 mg PO TID 08/25/20 08/25/20 History famotidine 20 mg PO QAM 08/25/20 08/25/20 History magnesium hydroxide [Milk of 30 ml PO DAILY PRN 08/25/20 08/25/20 History Magnesia] magnesium oxide 400 mg PO BID 08/25/20 08/25/20 History melatonin 3 mg PO HS 08/25/20 08/25/20 History nitrofurantoin monohyd/m-cryst 100 mg PO BID 08/25/20 08/25/20 History [Macrobid] pantoprazole 40 mg PO DAILYBB 08/25/20 08/25/20 History polyethylene glycol 3350 [Miralax] 17 g PO DAILY 08/25/20 08/25/20 History polyethylene glycol 3350 [Miralax] 17 g PO QDL PRN 08/25/20 08/25/20 History sennosides-docusate sodium 1 tab PO QDL PRN 08/25/20 08/25/20 History [Senokot-S] sodium phosphates [Fleet Enema] 133 ml MI DAILY PRN 08/25/20 08/25/20 History zinc sulfate 220 mg PO DAILY 08/25/20 08/25/20 History Patient History Medical History Depression History of arterial thrombosis History of Clostridium difficile colitis Hypertension MRSA (methicillin resistant Staphylococcus aureus) Rheumatic fever Spinal stenosis Tubular adenoma of colon Social History Smoking Status: Never smoker Second Hand Exposure: No; Hx Alcohol Use: No Hx Substance Use: No Preferred Language: Israeli Communication Ability: Effective Glass Checker Required: No Beliefs That Will Affect Care: None marital status: Current Living Situation: Rehab Current Living Situation Comment: [facility] current occupational status: retired Other Information That Helps Us Care for You: No Feels Safe at Home: Yes Safety Concerns: Feels Safe At This Time Dental Care, Regularly: No Physical Activity Frequency: Does not Exercise Seatbelt Use: always Sunscreen Use: No Assistive Devices: Oxygen - Continuous Review of Systems Review of Systems: [place] Symptom Assessment Scale Pain 0/3 Dyspnea currently 0/3, gets to 3/3 Fatigue 3/3 Nausea 0/3 Anorexia 2/3 Drowsiness 0/3 Palliative Performance Score 40% Physical Exam Constitutional: + thin and + frail appearing; no acute distress ENMT: Mouth: + dry oral mucous membranes Respiratory: normal respiratory effort; no labored breathing Cardiovascular: Rate/Rhythm: regular rate and regular rhythm Musculoskeletal: Extremities: + muscle atrophy Neurologic: not confused Psychiatric: Orientation: alert and oriented x 3 Results & Data ([facility]) Vital Signs (Past 12 Hours) Vital Signs Temp Pulse Pulse Resp BP Pulse Ox 08/28/20 14:42 72 08/28/20 14:00 97.9 F 74 20 91/54 L 93 08/28/20 10:56 97.5 F L 94 H 20 91/66 L 90 08/28/20 09:59 62 08/28/20 07:00 97.3 F L 67 20 97/67 L 97 PG Care Time/CCT Total # of Minutes Spent Total Time Spent with Patient: Total time spent is greater than 50% in coordination of care (as documented) at patient's floor/unit and/or counseling patient: total time spent 50 minutes with more than 50% of time spent on goals of care and code status Coding Level of Care Code 27587 Inpt Consult Level 2 Diagnoses Palliative care encounter Z51.5
[2020-08-28] MEDS: RIVAROXABAN 15 MG TAB PO SCH (16:50)
--- NOTE | 2020-08-28 17:58 | Hospitalist Progress Note ---
Date of Service August 28, 2020 Assessment & Plan (1) Dyspnea: Mrs. Sharma is an 85 yo woman with a PMHx of CVA, hypertension, carotid artery stenosis, GERD, and long-term anticoagulation on rivaroxaban who was recently admitted to [facility] from 08/13/20 to 08/22/20 for hypoxic respiratory distre ss. Readmitted from [facility] for worsening oxygen requirements and inability to participate in rehab. Goals of Care Ongoing discussions regarding being Full Code and goals of ongoing care Today patient clearly describes wanting to go home and be made comfortable and does not want to participate in any more therapy or be pushed to eat anymore food She understands this will likely lead to the end of her life in the near future and she is okay with this Discussed options and she requests to go home with hospice and a hospital bed Discussed case with her family jaylen and son Ladarius who are in agreement and say she has been steadily declining for some time and would like her to come home with hospice as soon as we can arrange it After discussion with patient changed code status from full to DNR/DNI Increasing Oxygen Requirement secondary to weakness - No history of underlying lung disease, lifetime non-smoker, no hx or evidence of CHF - CXR, CTA last admission showing basilar atelectasis without consolidation. no indications for infection. -Given history of lack of activity, deep breaths and atlectasis she is very likely to develop a pneumonia which given her physiologic reserve would be quite likely to be fatal. - mostly breathes through mouth so NC less effective Severe Protein Calore Malnutrition - patient continues to struggle with nutrition despite guidance from us and nutrition on increasing calorie intake through calorie dense Boost and other foods - mirtazapine 15 mg HS and marinol 2.5 mg TID for appetite stimulation - Discussed with family eating habits and they say she has not been eating at home for some time either -Zofran and phenergan for nausea Elevated Troponin - chronic low level elevation - no ST segment elevations - no complaints of chest pain Bowel regimen - continue magox and sennakot, miralax to keep bowels moving GERD cont pepcid BID DVT ppx: rivaroxaban FEN/GI: regular diet + supplements/Famotidine, appetite stimulants, D5 + NS @ 80ml/hr Code Status: DNR/DNI Dispo: Home with hospice (2) Hypoglycemia: - blood glucose 47 on admission. - improved to 97 with 1 amp D50 - suspect secondary to poor PO intake while at rehab (3) Weakness: (4) Severe protein-calorie malnutrition: (5) Elevated troponin: (6) GERD (gastroesophageal reflux disease): (7) Lower extremity edema: (8) Dystrophic nail: (9) Anticoagulant long-term use: (10) Acute hypoxemic respiratory failure: Admission and Anticipated Discharge Date Admission Date: August 25, 2020 Supervising Physician Co-Signing Physician Notes I also saw the patient with the resident physician confirmed phipps portions of the history and physical examination. Agree with the impression and plan as noted in the resident documentation. Still with minimal p.o. intake, boost. Perhaps some less nausea compared to yesterday. Exam 91/54, 72, 20, 36.6, 93% on 2 L She appears thin and frail. No distress appreciated. Nonlabored respirations. Regular rate. Data Hemoglobin 10.8, white blood cell count 6.67. Sodium 141, potassium 3.3. BUN 7, creatinine 0.51 Total protein 3.9, albumin 1.5. Assessment and plan Acute on chronic respiratory failure severe protein calorie malnutrition Failure to thrive Supportive care Palliative consult for goals of care Hospice appropriate Subjective Mrs. Sharma is resting comfortably today during my multiple discussions with her she is almost always sleeping soundly when I enter the room. Today she is telling me she is done trying to participate with physical therapy and does not want to try to eat any more than she has been. She is understanding that doing so will certainly lead to her continued decline and she is at peace with this. When we discuss options she says she does not want to try any form of rehab or strengthening but just wants to go home and focus on comfort for whatever time she has left even if that is a short period of time. She is desiring to go home on hospice and would like her code status changed to DNR/DNI which I will update in her chart. I discussed her care with her son and who are in agreement that she come home with hospice care. Review of Systems Review of Systems: All systems reviewed & are unremarkable except as noted in HPI & below Physical Exam Physical Exam: Constitutional: Very frail , emaciated 85 year old woman with severe muscle wasting globally Eyes: Pupils equal round and reactive to light, EOMMI bilaterally Neck: Supple Respiratory: Slightly tachypneic, Decreased breath sounds globally, rales at bilateral bases Cardiovascular: peripheral pulses intact and equal, systolic murmur present, regular rate, no calf tenderness GI: Abdomen soft non tender Results & Data Results & Data ([facility]) Vital Signs (Past 12 Hours) Vital Signs Temp Pulse Pulse Resp BP Pulse Ox 08/28/20 14:42 72 08/28/20 14:00 36.6 C 74 20 91/54 L 93 08/28/20 10:56 36.4 C L 94 H 20 91/66 L 90 08/28/20 09:59 62 08/28/20 07:00 36.3 C L 67 20 97/67 L 97 Resident Activity Tracking Resident Involvement: Resident Care Provided Care Provided: Adult Hospital Medicine (1) Dyspnea Dyspnea type: unspecified Qualified Code(s): R06.00 - Dyspnea, unspecified
[2020-08-28] MEDS: POTASSIUM CHLORIDE / WTR 10 MEQ/100 ML PLCT IV SCH ×3 (19:47→22:31)
[2020-08-28] MEDS: MIRTAZAPINE TAB 15 MG TAB PO SCH (20:58)
[2020-08-28] MEDS: MELATONIN 3 MG TAB PO SCH (21:03)
[2020-08-29] MEDS: D5W AND NSS 1,000 ML IV SCH ×3 (02:34→21:33)
[2020-08-29 06:19] LABS: Creatinine Clr Calc Pharmacy 81.1 ml/min; Est GFR (African American) 106.7
[2020-08-29] MEDS: DOCUSATE SODIUM 100 MG CAP PO SCH ×2 (08:44→20:27)
[2020-08-29] MEDS: MAGNESIUM OXIDE 400 MG TAB PO SCH ×2 (08:44→20:26)
[2020-08-29] MEDS: ONDANSETRON INJ 2 MG/ML 2 ML VIAL IV SCH ×4 (08:45→20:27)
[2020-08-29] MEDS: FAMOTIDINE 20 MG in SYRINGE 3 ML IV SCH ×2 (09:11→20:27)
[2020-08-29] MEDS: CARBOHYDRATES FOR HYPOGLYCEMIA PO PRN (12:31)
--- NOTE | 2020-08-29 13:23 | Hospitalist Progress Note ---
Date of Service August 29, 2020 Assessment & Plan (1) Dyspnea: Mrs. Sharma is an 85 yo woman with a PMHx of CVA, hypertension, carotid artery stenosis, GERD, and long-term anticoagulation on rivaroxaban who was recently admitted to [facility] from 08/13/20 to 08/22/20 for hypoxic respiratory distre ss. Readmitted from [facility] for worsening oxygen requirements and inability to participate in rehab. Goals of Care Currently DNR/DNI. Dr. Das with numerous discussions and time spent providing end of life care yesterday. Patient clearly describes wanting to go home and be made comfortable and does not want to participate in any more therapy or be pushed to eat anymore food. She verbalizes same this morning. She understands this will likely lead to the end of her life in the near future and she is okay with this. She requests to go home with hospice and a hospital bed Case discussed with her family Raul and son Thomas who are in agreement and say she has been steadily declining for some time and would like her to come home with hospice as soon as we can arrange it Increasing Oxygen Requirement secondary to weakness - No history of underlying lung disease, lifetime non-smoker, no hx or evidence of CHF - CXR, CTA last admission showing basilar atelectasis without consolidation. no indications for infection. - Given history of lack of activity, deep breaths and atlectasis she is very likely to develop a pneumonia which given her physiologic reserve would be quite likely to be fatal. - mostly breathes through mouth so NC less effective Severe Protein Calore Malnutrition - patient continues to struggle with nutrition despite guidance from us and nutrition on increasing calorie intake through calorie dense Boost and other foods - mirtazapine 15 mg HS and marinol 2.5 mg TID for appetite stimulation - Discussed with family eating habits and they say she has not been eating at home for some time either -Zofran and phenergan for nausea Elevated Troponin - chronic low level elevation - no ST segment elevations - no complaints of chest pain Bowel regimen - continue magox and sennakot, miralax to keep bowels moving GERD cont pepcid BID DVT ppx: rivaroxaban FEN/GI: regular diet + supplements/Famotidine, appetite stimulants, D5 + NS @ 80ml/hr Code Status: DNR/DNI Dispo: Home with hospice (2) Hypoglycemia: - blood glucose 47 on admission. - improved to 97 with 1 amp D50 - Having more episodes today with values in 60s; secondary to poor PO intake here. (3) Weakness: - acute on chronic - patient reported a month of progressive weakness upon admission to [facility] on 08/13/20 - suspect related to here concurrent severe protein calorie malnutrition and overall deconditioned state - PT/OT ordered; but okay if doesn't want to participate as decision is made for hospice care (4) Severe protein-calorie malnutrition: - albumin low at 2.1 on admission - electrolytes normal - mirtazapine 15mg qhs and Marinol 2.5mg TID for appetite stimulation - continue Mag-Ox and NeutraPhos supplements - continue Boost nutrition supplements; this morning she noted drinking boost but drink appeared to be mostly full. - trend BMP (5) Elevated troponin: - trop elevated to 0.085 on admission - no chest pain on exam - EKG showing NSR, no ST segment changes - suspect secondary to demand/supply mismatch (6) GERD (gastroesophageal reflux disease): - continue home dose famotidine and pepcid (7) Lower extremity edema: - echo from 08/14/20 showing no R sided CHF - suspect related to low albumin and third spacing of fluid (8) Dystrophic nail: - visualized on exam - recommend patient see podiatry as outpatient (9) Anticoagulant long-term use: (10) Acute hypoxemic respiratory failure: Admission and Anticipated Discharge Date Admission Date: August 25, 2020 Supervising Physician Co-Signing Physician Notes I also saw the patient with the resident physician confirmed phipps portions of the history and physical examination. Agree with the impression and plan as noted in the resident documentation. Still with minimal p.o. intake, boost. She again voices desire to return home. Discussed eating as much or as little as she feels comfortable. Discuss goals of care. Discussed hospice. Exam 95/62, 82, 18, 36.5 C, 94% on nasal cannula at 3 L/min She appears thin and frail. No distress appreciated. Nonlabored respirations. Regular rate. Assessment and plan Acute on chronic respiratory failure severe protein calorie malnutrition Failure to thrive Supportive care Palliative consult for goals of custodial hospice Subjective No acute events reported overnight. Continues to convey wish of going home with hospice. Was unable to eat her waffles this morning as syrup was poured on them and she does not like syrup. She notes long standing history of not eating breakfast. She has no complaints of pain. She notes feeling tired. Physical Exam Constitutional: + frail appearing, cooperative and comfortable; no acute distress Eyes: PERRL, conjunctivae normal, anicteric sclerae ENMT: external ear and nose normal, oropharynx normal Neck: trachea midline Respiratory: no respiratory distress, no labored breathing and does not use accessory muscles Auscultation: + diminished lung sounds Cardiovascular: Rate/Rhythm: regular rate and regular rhythm Gastrointestinal (Abdomen): Percussion/Palpation: abdomen soft; abdomen nontender, no guarding and abdomen not rigid Musculoskeletal: Head/Neck/Chest: normocephalic and head atraumatic Skin: no rashes, warm and dry Neurologic: moves all extremities and awake Psychiatric: Orientation: alert and oriented x 3 Results & Data Results & Data ([facility]) Vital Signs (Past 12 Hours) Vital Signs Temp Pulse Pulse Resp BP Pulse Ox 08/29/20 11:38 36.5 C 82 18 95/62 L 94 08/29/20 11:00 36.5 C 82 18 95/62 L 93 08/29/20 07:23 65 08/29/20 07:00 36.4 C L 65 18 98/58 L 96 08/29/20 03:50 36.4 C L 63 20 116/70 97 Resident Activity Tracking Resident Involvement: Resident Care Provided Care Provided: Adult [facility] Medicine (1) Dyspnea Dyspnea type: unspecified Qualified Code(s): R06.00 - Dyspnea, unspecified
[2020-08-29] MEDS: RIVAROXABAN 15 MG TAB PO SCH (16:11)
[2020-08-29] MEDS: MIRTAZAPINE TAB 15 MG TAB PO SCH (20:26)
[2020-08-29] MEDS: MELATONIN 3 MG TAB PO SCH (20:27)
--- NOTE | 2020-08-30 06:49 | Hospitalist Progress Note ---
Date of Service August 30, 2020 Assessment & Plan (1) Dyspnea: Mrs. Sharma is an 85 yo woman with a PMHx of CVA, hypertension, carotid artery stenosis, GERD, and long-term anticoagulation on rivaroxaban who was recently admitted to [facility] from 08/13/20 to 08/22/20 for hypoxic respiratory distre ss. Readmitted from [facility] for worsening oxygen requirements and inability to participate in rehab. Goals of Care Currently DNR/DNI. Dr. Das with numerous discussions and exemplary care providing end of life care/counseling on 08/28/20. Patient clearly describes wanting to go home and be made comfortable and does not want to participate in any more therapy or be pushed to eat anymore food. She verbalizes same this morning. She understands this will likely lead to the end of her life in the near future and she is okay with this. She requests to go home with hospice and a hospital bed Case discussed with her family Raul and son Thomas who are in agreement and say she has been steadily declining for some time and would like her to come home with hospice as soon as we can arrange it Looks like referral request placed to [facility] with hopes for discharge tomorrow or early this week if available. Hypoglycemia Numerous episodes during admission with values avg 60s, which were treated properly per protocols already in place. From poor PO intake with inadequate compensatory glycogen reserve from chronic poor nutritional intake. Encourage PO intake, Hypoglycemic meds/protocols in place. Continue to monitor for hypoglycemia. C/w D5W+NSS @ 50ml/hr Increasing Oxygen Requirement secondary to weakness - No history of underlying lung disease, lifetime non-smoker, no hx or evidence of CHF - CXR, CTA last admission showing basilar atelectasis without consolidation. no indications for infection. - Given history of lack of activity, deep breaths and atlectasis she is very likely to develop a pneumonia which given her physiologic reserve would be quite likely to be fatal. - mostly breathes through mouth so NC less effective Severe Protein Calore Malnutrition - patient continues to struggle with nutrition despite guidance from us and nutrition on increasing calorie intake through calorie dense Boost and other foods - mirtazapine 15 mg HS and marinol 2.5 mg TID for appetite stimulation - Discussed with family eating habits and they say she has not been eating at home for some time either -Zofran and phenergan for nausea Elevated Troponin - chronic low level elevation - no ST segment elevations - no complaints of chest pain Bowel regimen - continue magox and sennakot, miralax to keep bowels moving GERD cont pepcid BID DVT ppx: rivaroxaban FEN/GI: regular diet + supplements/Famotidine, appetite stimulants, D5 + NS @ 50ml/hr Code Status: DNR/DNI Dispo: Home with hospice (2) Hypoglycemia: as noted above. (3) Weakness: - acute on chronic - patient reported a month of progressive weakness upon admission to [facility] on 08/13/20 - suspect related to here concurrent severe protein calorie malnutrition and overall deconditioned state - PT/OT ordered; but okay if doesn't want to participate as decision is made for hospice care (4) Severe protein-calorie malnutrition: - albumin low at 2.1 on admission - electrolytes normal - mirtazapine 15mg qhs and Marinol 2.5mg TID for appetite stimulation - continue Mag-Ox and NeutraPhos supplements - continue Boost nutrition supplements; this morning she noted drinking boost but drink appeared to be mostly full again today. - trend BMP (5) Elevated troponin: - trop elevated to 0.085 on admission - no chest pain on exam - EKG showing NSR, no ST segment changes - suspect secondary to demand/supply mismatch (6) GERD (gastroesophageal reflux disease): - continue home dose famotidine and pepcid (7) Lower extremity edema: - echo from 08/14/20 showing no R sided CHF - suspect related to low albumin and third spacing of fluid (8) Dystrophic nail: - visualized on exam - recommend patient see podiatry as outpatient (9) Anticoagulant long-term use: (10) Acute hypoxemic respiratory failure: Admission and Anticipated Discharge Date Admission Date: August 25, 2020 Supervising Physician Co-Signing Physician Notes I also saw the patient with the resident physician confirmed phipps portions of the history and physical examination. Agree with the impression and plan as noted in the resident documentation. Complains of pain, right buttocks, where she has some early skin breakdown. With assistance of nursing we were able to reposition her slightly for improved comfort. Exam 102/66, 78, 18, 36.4, 94% on 3 L/min She appears thin and frail. No distress appreciated. Nonlabored respirations. Regular rate. Assessment and plan Acute on chronic respiratory failure severe protein calorie malnutrition Failure to thrive Plan is home 08/31 or 09/01 with home nursing hospice Subjective She had some infiltration of IV site last night and IVF was decreased to 50ml/hr of D5W/NSS, otherwise acute events reported overnight. Continues to convey wish of going home with hospice. She has no complaints of pain, other than pain from chronic right buttock sore that was recently dressed. However, were able to re- position her in position of comfort in room which alleviated pain. She continues to have poor appetite. Physical Exam Constitutional: + frail appearing, cooperative and comfortable; no acute distress Eyes: PERRL, conjunctivae normal, anicteric sclerae ENMT: external ear and nose normal, oropharynx normal Neck: trachea midline Respiratory: no respiratory distress, no labored breathing and does not use accessory muscles Auscultation: + diminished lung sounds Cardiovascular: Rate/Rhythm: regular rate and regular rhythm Gastrointestinal (Abdomen): Percussion/Palpation: abdomen soft; abdomen nontender, no guarding and abdomen not rigid Musculoskeletal: Head/Neck/Chest: normocephalic and head atraumatic Skin: no rashes, warm and dry Neurologic: moves all extremities and awake Psychiatric: Orientation: alert and oriented x 3 Results & Data Results & Data ([facility]) Vital Signs (Past 12 Hours) Vital Signs Temp Pulse Pulse Resp BP Pulse Ox 08/30/20 04:59 72 08/30/20 03:49 36.3 C L 76 20 105/70 95 08/29/20 23:00 36.7 C 75 20 94/62 L 94 08/29/20 19:00 37.1 C 88 20 130/72 93 Laboratory Results Laboratory Results - last 24 hr 08/29/20 08/29/20 08/29/20 12:09 12:11 12:57 POC Glucose 64 L* 62 L* 69 L* 08/29/20 08/29/20 08/30/20 12:58 17:54 00:07 POC Glucose 68 L* 80 79 08/30/20 08/30/20 08/30/20 06:00 06:03 06:46 POC Glucose 69 L* 75 72 Medications Administered Acetaminophen (Acetaminophen 325 Mg Tab) 650 mg PO Q4H PRN PRN Reason: Pain or Fever Stop: 09/25/20 00:18 Last Admin: 08/27/20 09:39 Dose: 650 mg Documented by: [id number] Docusate Sodium (Docusate Sodium 100 Mg Cap) 100 mg PO BID [facility] Stop: 09/25/20 08:59 Last Admin: 08/30/20 08:00 Dose: 100 mg Documented by: [id number] Admin: 08/29/20 20:27 Dose: 100 mg Documented by: [id number] Admin: 08/29/20 08:44 Dose: 100 mg Documented by: [id number] Admin: 08/28/20 20:57 Dose: 100 mg Documented by: [id number] Admin: 08/28/20 08:36 Dose: 100 mg Documented by: [id number] Admin: 08/27/20 20:58 Dose: 100 mg Documented by: [id number] Admin: 08/27/20 09:40 Dose: 100 mg Documented by: [id number] Admin: 08/26/20 20:45 Dose: 100 mg Documented by: [id number] Admin: 08/26/20 08:44 Dose: 100 mg Documented by: [id number] Dronabinol (Dronabinol 2.5 Mg Cap) 2.5 mg PO TID TRISH Stop: 09/25/20 08:59 Last Admin: 08/30/20 07:59 Dose: 2.5 mg Documented by: [id number] Admin: 08/29/20 20:27 Dose: 2.5 mg Documented by: [id number] Admin: 08/29/20 15:11 Dose: 2.5 mg Documented by: [id number] Admin: 08/29/20 08:44 Dose: 2.5 mg Documented by: [id number] Admin: 08/28/20 21:03 Dose: 2.5 mg Documented by: [id number] Admin: 08/28/20 14:03 Dose: 2.5 mg Documented by: [id number] Admin: 08/28/20 08:36 Dose: 2.5 mg Documented by: [id number] Admin: 08/27/20 21:04 Dose: 2.5 mg Documented by: [id number] Admin: 08/27/20 14:14 Dose: 2.5 mg Documented by: [id number] Admin: 08/27/20 09:07 Dose: 2.5 mg Documented by: [id number] Admin: 08/26/20 20:45 Dose: 2.5 mg Documented by: [id number] Admin: 08/26/20 14:49 Dose: 2.5 mg Documented by: [id number] Admin: 08/26/20 08:44 Dose: 2.5 mg Documented by: [id number] Famotidine (Famotidine 20 Mg Tab) 20 mg PO QAM TRISH Stop: 09/25/20 08:59 Last Admin: 08/27/20 09:08 Dose: 20 mg Documented by: [id number] Admin: 08/26/20 08:44 Dose: 20 mg Documented by: [id number] Dextrose/Sodium Chloride (D5w And Nss) 1,000 mls @ 50 mls/hr IV .Q20H TRISH Stop: 09/25/20 09:59 Last Admin: 08/30/20 07:59 Dose: 50 mls/hr Documented by: [id number] Infusion: 08/30/20 07:58 Dose: 0 mls/hr Documented by: [id number] Admin: 08/29/20 21:33 Dose: 100 mls/hr Documented by: [id number] Infusion: 08/29/20 21:33 Dose: 100 mls/hr Documented by: [id number] Admin: 08/29/20 11:52 Dose: 100 mls/hr Documented by: [id number] Infusion: 08/29/20 11:52 Dose: 100 mls/hr Documented by: [id number] Admin: 08/29/20 02:34 Dose: 100 mls/hr Documented by: [id number] Infusion: 08/29/20 02:34 Dose: 100 mls/hr Documented by: [id number] Admin: 08/28/20 16:47 Dose: 100 mls/hr Documented by: [id number] Infusion: 08/28/20 13:52 Dose: 100 mls/hr Documented by: [id number] Admin: 08/28/20 03:52 Dose: 100 mls/hr Documented by: [id number] Infusion: 08/28/20 03:52 Dose: 100 mls/hr Documented by: [id number] Admin: 08/27/20 18:06 Dose: 100 mls/hr Documented by: [id number] Infusion: 08/27/20 18:06 Dose: 100 mls/hr Documented by: [id number] Admin: 08/27/20 08:51 Dose: 100 mls/hr Documented by: [id number] Infusion: 08/27/20 08:51 Dose: 80 mls/hr Documented by: [id number] Admin: 08/27/20 06:11 Dose: 100 mls/hr Documented by: [id number] Infusion: 08/27/20 06:11 Dose: 100 mls/hr Documented by: [id number] Admin: 08/26/20 20:45 Dose: 100 mls/hr Documented by: [id number] Infusion: 08/26/20 20:27 Dose: 100 mls/hr Documented by: [id number] Admin: 08/26/20 10:27 Dose: 100 mls/hr Documented by: [id number] Famotidine 20 mg/ Syringe 5 mls @ 2.5 mls/min IV BID TRISH Stop: 09/26/20 20:59 Last Admin: 08/30/20 08:09 Dose: 2.5 mls/min Documented by: [id number] Admin: 08/29/20 20:27 Dose: 2.5 mls/min Documented by: [id number] Admin: 08/29/20 09:11 Dose: 2.5 mls/min Documented by: [id number] Admin: 08/28/20 21:03 Dose: 2.5 mls/min Documented by: [id number] Admin: 08/28/20 08:42 Dose: 2.5 mls/min Documented by: [id number] Admin: 08/27/20 21:04 Dose: 2.5 mls/min Documented by: [id number] Magnesium Oxide (Magnesium Oxide 400 Mg Tab) 400 mg PO BID TRISH Stop: 09/25/20 08:59 Last Admin: 08/30/20 07:59 Dose: 400 mg Documented by: [id number] Admin: 08/29/20 20:26 Dose: 400 mg Documented by: [id number] Admin: 08/29/20 08:44 Dose: 400 mg Documented by: [id number] Admin: 08/28/20 20:58 Dose: 400 mg Documented by: [id number] Admin: 08/28/20 08:37 Dose: 400 mg Documented by: [id number] Admin: 08/27/20 20:58 Dose: 400 mg Documented by: [id number] Admin: 08/27/20 09:07 Dose: 400 mg Documented by: [id number] Admin: 08/26/20 20:45 Dose: 400 mg Documented by: [id number] Admin: 08/26/20 08:44 Dose: 400 mg Documented by: [id number] Melatonin (Melatonin 3 Mg Tab) 3 mg PO [facility] Stop: 09/25/20 20:59 Last Admin: 08/29/20 20:27 Dose: 3 mg Documented by: [id number] Admin: 08/28/20 21:03 Dose: 3 mg Documented by: [id number] Admin: 08/27/20 21:04 Dose: 3 mg Documented by: [id number] Admin: 08/26/20 20:45 Dose: 3 mg Documented by: [id number] Mirtazapine (Mirtazapine Tab 15 Mg Tab) 15 mg PO TRISH Stop: 09/25/20 20:59 Last Admin: 08/29/20 20:26 Dose: 15 mg Documented by: [id number] Admin: 08/28/20 20:58 Dose: 15 mg Documented by: [id number] Admin: 08/27/20 20:58 Dose: 15 mg Documented by: [id number] Admin: 08/26/20 20:45 Dose: 15 mg Documented by: [id number] Miscellaneous (Carbohydrates For Hypoglycemia ) 15 - 30 gm PO UD PRN PRN Reason: Hypoglycemia Protocol Stop: 09/25/20 06:55 Last Admin: 08/29/20 12:31 Dose: 15 gm Documented by: [id number] Ondansetron HCl (Ondansetron Inj 2 Mg/Ml 2 Ml Vial) 4 mg IV ACHS [facility] Stop: 09/26/20 20:59 Last Admin: 08/30/20 08:00 Dose: 4 mg Documented by: [id number] Admin: 08/29/20 20:27 Dose: 4 mg Documented by: [id number] Admin: 08/29/20 16:04 Dose: 4 mg Documented by: [id number] Admin: 08/29/20 11:52 Dose: 4 mg Documented by: [id number] Admin: 08/29/20 08:45 Dose: 4 mg Documented by: [id number] Admin: 08/28/20 20:58 Dose: 4 mg Documented by: [id number] Admin: 08/28/20 16:47 Dose: 4 mg Documented by: [id number] Admin: 08/28/20 11:54 Dose: 4 mg Documented by: [id number] Admin: 08/28/20 08:36 Dose: 4 mg Documented by: [id number] Admin: 08/27/20 21:05 Dose: 4 mg Documented by: [id number] Rivaroxaban (Rivaroxaban 15 Mg Tab) 15 mg PO QDD TRISH Stop: 09/25/20 16:29 Last Admin: 08/29/20 16:11 Dose: 15 mg Documented by: [id number] Admin: 08/28/20 16:50 Dose: 15 mg Documented by: [id number] Admin: 08/27/20 16:15 Dose: 15 mg Documented by: [id number] Admin: 08/26/20 17:04 Dose: 15 mg Documented by: [id number] Resident Activity Tracking Resident Involvement: Resident Care Provided Care Provided: Adult Hospital Medicine (1) Dyspnea Dyspnea type: unspecified Qualified Code(s): R06.00 - Dyspnea, unspecified
[2020-08-30] MEDS: D5W AND NSS 1,000 ML IV SCH (07:59)
[2020-08-30] MEDS: MAGNESIUM OXIDE 400 MG TAB PO SCH ×2 (07:59→20:33)
[2020-08-30] MEDS: ONDANSETRON INJ 2 MG/ML 2 ML VIAL IV SCH ×4 (08:00→20:35)
[2020-08-30] MEDS: DOCUSATE SODIUM 100 MG CAP PO SCH ×2 (08:00→20:36)
[2020-08-30] MEDS: FAMOTIDINE 20 MG in SYRINGE 3 ML IV SCH ×2 (08:09→21:13)
[2020-08-30] MEDS: RIVAROXABAN 15 MG TAB PO SCH (16:49)
[2020-08-30] MEDS: MIRTAZAPINE TAB 15 MG TAB PO SCH (20:33)
[2020-08-30] MEDS: MELATONIN 3 MG TAB PO SCH (20:35)
[2020-08-31] MEDS: ACETAMINOPHEN 325 MG TAB PO PRN (04:56)
--- NOTE | 2020-08-31 07:00 | Hospitalist Progress Note ---
Date of Service August 31, 2020 Assessment & Plan (1) Dyspnea: Mrs. Sharma is an 85 yo woman with a PMHx of CVA, hypertension, carotid artery stenosis, GERD, and long-term anticoagulation on rivaroxaban who was recently admitted to [facility] from 08/13/20 to 08/22/20 for hypoxic respiratory distre ss. Readmitted from [facility] for worsening oxygen requirements and inability to participate in rehab. Goals of Care -Currently DNR/DNI. Dr. Das with numerous discussions and exemplary care providing end of life care/counseling on 08/28/20. -Patient clearly describes wanting to go home and be made comfortable and does not want to participate in any more therapy or be pushed to eat anymore food. -She understands this will likely lead to the end of her life in the near future and she is okay with this. -She requests to go home with hospice and a hospital bed -Case discussed with her family Raul and son Thomas who are in agreement and say she has been steadily declining for some time and would like her to come home with hospice as soon as we can arrange it -Discharge home with hospice planned for 09/01/20 at 15:00 Hypoglycemia -Numerous episodes during admission with values avg 60s, which were treated properly per protocols already in place. -From poor PO intake with inadequate compensatory glycogen reserve from chronic poor nutritional intake. -Encourage PO intake, Hypoglycemic meds/protocols in place. Continue to monitor for hypoglycemia. -C/w D5W+NSS @ 50ml/hr Increasing Oxygen Requirement secondary to weakness - No history of underlying lung disease, lifetime non-smoker, no hx or evidence of CHF - CXR, CTA last admission showing basilar atelectasis without consolidation. no indications for infection. - Given history of lack of activity, deep breaths and atelectasis she is very li pb to develop a pneumonia which given her physiologic reserve would be quite likely to be fatal. - mostly breathes through mouth so NC less effective - Continue O2 per nasal cannula PRN Severe Protein Calore Malnutrition - patient continues to struggle with nutrition despite guidance from us and nutrition on increasing calorie intake through calorie dense Boost and other foods - mirtazapine 15 mg HS and marinol 2.5 mg TID for appetite stimulation - Discussed with family eating habits and they say she has not been eating at home for some time either - Zofran and Phenergan for nausea Elevated Troponin - chronic low level elevation - no ST segment elevations - no complaints of chest pain Bowel regimen - continue magox and sennakot, miralax to keep bowels moving GERD cont pepcid BID DVT ppx: rivaroxaban FEN/GI: regular diet + supplements/Famotidine, appetite stimulants, D5 + NS @ 50 ml/hr Code Status: DNR/DNI Dispo: Home with hospice Admission and Anticipated Discharge Date Admission Date: August 25, 2020 Supervising Physician Co-Signing Physician Notes I personally examined the patient and verified all phipps points of history and exam, discussed case, and agree with decision making with Dr Nunez. feeling better. ate some. home on hospice once ready vitals noted nad heent nc at mmm breathing unlabored no accessory muscles good effort skin no rashes no pallor or icterus malnutrition/weakness -for home w hospice once all is ready otherwise as above Subjective Patient evaluated at the bedside this morning. Noting she was having slight nausea, but only recently received a dose antiemetic medication. Otherwise feeling as though she only becomes short of breath with exertion. States that her bowel movement overnight appeared relatively normal to her. No fever, chills, SOB at rest, chest pain. Review of Systems Constitutional: no fever and no chills Eyes: no worsening vision Ear, Nose, Mouth, Throat: no dizziness Respiratory: + dyspnea on exertion; no cough, no dyspnea and no pain on inspiration Cardiovascular: + dyspnea on exertion; no chest pain, no radiating jaw, neck or arm pain, no dyspnea and no palpitations Gastrointestinal: + nausea; no abdominal pain, no vomiting, no constipation and no diarrhea/loose stools Genitourinary: no dysuria Physical Exam Constitutional: well developed and well nourished; no acute distress Eyes: PERRL, conjunctivae normal, anicteric sclerae Respiratory: normal respiratory effort, lungs clear to auscultation On 4L NC Cardiovascular: Rate/Rhythm: regular rate and regular rhythm Heart Sounds: no murmur Gastrointestinal (Abdomen): Inspection/Auscultation: abdomen normal to inspection and normal bowel sounds; abdomen not distended Percussion/Palpation: + abdomen tender (mild TTP LUQ ); no guarding and abdomen not rigid Results & Data Results & Data ([facility]) Vital Signs (Past 12 Hours) Vital Signs Temp Pulse Resp BP Pulse Ox 08/31/20 04:00 36.5 C 80 20 117/72 97 08/30/20 23:00 36.5 C 75 20 104/67 91 08/30/20 19:00 36.8 C 96 H 20 91/51 L 91 Resident Activity Tracking Resident Involvement: Resident Care Provided Care Provided: Adult Hospital Medicine (1) Dyspnea Dyspnea type: unspecified Qualified Code(s): R06.00 - Dyspnea, unspecified
[2020-08-31] MEDS: D5W AND NSS 1,000 ML IV SCH ×2 (09:09→09:10)
[2020-08-31] MEDS: FAMOTIDINE 20 MG in SYRINGE 3 ML IV SCH ×2 (09:10→20:22)
[2020-08-31] MEDS: ONDANSETRON INJ 2 MG/ML 2 ML VIAL IV SCH ×4 (09:11→20:22)
[2020-08-31] MEDS: MAGNESIUM OXIDE 400 MG TAB PO SCH ×2 (09:15→20:22)
[2020-08-31] MEDS: DOCUSATE SODIUM 100 MG CAP PO SCH ×2 (09:15→20:23)
--- NOTE | 2020-08-31 15:44 | Billing Data ---
Date of Service August 31, 2020 Coding Level of Care Code 26846 Subseq Hosp Care Lvl 2
[2020-08-31] MEDS: RIVAROXABAN 15 MG TAB PO SCH (16:34)
[2020-08-31] MEDS: MELATONIN 3 MG TAB PO SCH (20:23)
[2020-08-31] MEDS: MIRTAZAPINE TAB 15 MG TAB PO SCH (20:23)
--- NOTE | 2020-09-01 06:44 | Discharge Summary ---
Date of Service September 01, 2020 Admission HPI Per Admitting Provider Katherine is an 85-year-old female with a past medical history of CVA, hypertension, carotid artery stenosis, GERD, and long-term anticoagulation on rivaroxaban. She was recently admitted to [facility] from 08/13/20 to 08/22/20 for acute hypoxic respiratory distress that was ultimately thought to be caused by diaphragmatic compromise, secondary to stercoral colitis and severe fecal retention (distended, stool filled bowel was restricting diagram expansion). She was treated with an aggressive bowel regimen during her recent admission, and was manually disimpacted twice. Her breathing improved with treatment of her fecal retention. Mrs. Sharma was also found have severe protein calorie malnutrition with electrolyses imbalances during her recent admission. She was globally weak and appeared to have a low drive to eat. The appetite stimulants mirtazapine 15mg qhs and Marinol 2.5mg TID were started for this reason. She was ultimately discharged to [facility] for rehab on 08/22/20 - with directions to use Boost and Mag-Ox and Neutra-Phos supplements upon her hospital discharge. While at [facility], Mrs. Sharma said her bowels were quite regular. She had one- two soft BMs per day; she does have occasional left sided abdominal pain when "twisting." She was trialed on CPAP while at [facility], which she could not tolerate - thus she was transitioned to high flow nasal cannula. Over the course of the past three days, her oxygen requirement increased, which ultimately promoted her readmission. Mrs. Sharma denied any fever/chills, cough or nasal congestion. Her only complaint while at [facility] was weakness - she says she would request to be able to rest in the middle of her therapy sessions but the aids would push her to keep going. When asked what her appetite was like at [facility], she said she just ate "a couple of bites, here and there." Social History: Lives in an in-law suite at her son's who is working from home. She is a lifetime non-smoker. No Etoh use. On arrival to the ED, patient was afebrile, HR initially tachycardiac at 112. BP 88/54. RR 18, satting 91 on high flow. Glucose was low at 47, which improved to 97 with an amp of D50. WBC was mildly elevated to 12 with neutrophil predom. Procal not elevated. Respiratory biofire negative for COVID, RSV and influenza. Blood cultures drawn. UA neg for nitrites, trace LE, 1+ bacteria and budding yeast. Lactate normal at 1.8. Hgb normal at 13. MCV 102. Cr normal. Phos normal at 2.6, Mag normal at 1.9. Bicarb low at 19. Anion gap at 16.8 (corrected for low albumin). BNP elevated to 1417. Trop elevated to 0.085. INR at 1.3. AST mildly elevated to 38, ALT normal at 33. CXR showing no focal consolidation, appears unchanged from radiograph on 08/21/20. Patient was given 1 liter of IV normal saline, which resulted in a HR down to 87 and BP to 105/68. Admission Exam Per Admitting Provider Constitutional: + thin, + disheveled and cooperative; no acute distress Eyes: + anicteric sclerae ENMT: external ear and nose normal, oropharynx normal Neck: normal visual inspection and trachea midline Respiratory: normal respiratory effort; no respiratory distress, no labored breathing and no cough Auscultation: + diminished lung sounds (bilateral lung bases ); no crackles, no rales, no rhonchi and no wheezes Cardiovascular: RRR, no murmur, no edema Heart Sounds: normal S1 and normal S2 Extremities: + pedal edema (+2 bilaterally ) Gastrointestinal (Abdomen): Inspection/Auscultation: abdomen normal to inspection and normal bowel sounds; abdomen not distended Percussion/Palpation: + abdomen firm (L upper and lower quadrants ); abdomen nontender Skin: no rashes, warm and dry + ecchymosis (B/l antecubital fossa) Neurologic: moves all extremities Psychiatric: A+Ox3, euthymic affect Genitourinary: Redd catheter in place, draining yellow urine without visible blood clots Principal Diagnosis FTT, Worsening Dyspnea Discharge Exam Constitutional well developed and well nourished; no acute distress Eyes PERRL, conjunctivae normal, anicteric sclerae Respiratory normal respiratory effort, lungs clear to auscultation on 4.5L NC Cardiovascular Rate/Rhythm: regular rate and regular rhythm Heart Sounds: no murmur Gastrointestinal (Abdomen) Inspection/Auscultation: abdomen normal to inspection and normal bowel sounds; abdomen not distended Percussion/Palpation: + abdomen tender (mild TTP LUQ ); no guarding and abdomen not rigid Discharge Data Allergies Allergy/AdvReac Type Severity Reaction Status Date / Time sulfamethoxazole Allergy Mild MOUTH SORES Verified 08/13/20 20:07 trimethoprim Allergy Mild MOUTH SORES Verified 08/13/20 20:07 morphine AdvReac Intermediate HEART Verified 08/13/20 20:07 PALPITATIONS,CHEST TIGHTNESS,VOMITING Opioid Analgesics AdvReac Intermediate HEART Uncoded 08/13/20 20:07 PALPITATIONS, CHEST TIGHTNESS, VOMITING Consultations 08/25/20 22:08 ED Decision to Admit Stat 08/28/20 10:47 Consult Palliative Care Routine Hospital Course (1) Dyspnea: Mrs. Sharma is an 85 yo woman with a PMHx of CVA, hypertension, carotid artery stenosis, GERD, and long-term anticoagulation on rivaroxaban who was recently admitted to [facility] from 08/13/20 to 08/22/20 for hypoxic respiratory distress. Readmitted from [facility] for worsening oxygen requirements and inability to participate in rehab. Goals of Care -Currently DNR/DNI. Dr. Das with numerous discussions and exemplary care providing end of life care/counseling on 08/28/20. -Patient clearly describes wanting to go home and be made comfortable and does not want to participate in any more therapy or be pushed to eat anymore food. -She understands this will likely lead to the end of her life in the near future and she is okay with this. -She requests to go home with hospice and a hospital bed -Case discussed with her family Raul and son Thomas who are in agreement and say she has been steadily declining for some time and would like her to come home with hospice. -Discharge home with hospice planned for 09/01/20 at 15:00 Hypoglycemia -Numerous episodes during admission with values avg 60s, which were treated properly per protocols already in place. -From poor PO intake with inadequate compensatory glycogen reserve from chronic poor nutritional intake. -Encouraged PO intake, Hypoglycemic meds/protocols in place. -Was on dextrose containing IVF while inpatient. Increasing Oxygen Requirement secondary to weakness - No history of underlying lung disease, lifetime non-smoker, no hx or evidence of CHF - CXR, CTA last admission showing basilar atelectasis without consolidation. no indications for infection. - Given history of lack of activity, deep breaths and atelectasis she is very likely to develop a pneumonia which given her physiologic reserve would be quite likely to be fatal. - mostly breathes through mouth so NC less effective - Continued O2 per nasal cannula PRN Severe Protein Calore Malnutrition - patient continues to struggle with nutrition despite guidance from us and nutrition on increasing calorie intake through calorie dense Boost and other foods - mirtazapine 15 mg HS and marinol 2.5 mg TID for appetite stimulation - Discussed with family eating habits and they say she has not been eating at home for some time either - Zofran and Phenergan for nausea while inpatient. Elevated Troponin - chronic low level elevation - no ST segment elevations - no complaints of chest pain Bowel regimen - continued magox and sennakot, miralax to keep bowels moving GERD cont pepcid BID Total Time Total Time Spent Total Time Spent (In Minutes): <30 Discharge Plan Discharge Items Patient Disposition: Hospice - Home Reason For Visit: SOB Discharge Diagnosis: FTT Activity: Resume your previous activity Non-emergency contact: Primary Care Provider Call non-emergency contact if: your symptoms worsen Follow-up/Referrals: Tomas Young MD [Primary Care Provider] - Diet: Regular Addtl Attending Provider Instructions: Mrs. Sharma is an 85 yo woman with a PMHx of CVA, hypertension, carotid artery stenosis, GERD, and long-term anticoagulation on rivaroxaban who was recently admitted to [facility] from 08/13/20 to 08/22/20 for hypoxic respiratory distress. Readmitted from [facility] for worsening oxygen requirements and inability to participate in rehab. Goals of Care -Currently DNR/DNI. -Patient clearly describes wanting to go home and be made comfortable and does not want to participate in any more therapy or be pushed to eat anymore food. -She understands this will likely lead to the end of her life in the near future and she is okay with this. -She requests to go home with hospice and a hospital bed -Case discussed with her family Raul and son Thomas who are in agreement and say she has been steadily declining for some time and would like her to come home with hospice as soon as we can arrange it -Discharge home with hospice planned for 09/01/20 at 15:00 Hypoglycemia -Numerous episodes during admission with values avg 60s, which were treated properly per protocols already in place. -From poor PO intake with inadequate compensatory glycogen reserve from chronic malnutrition -Continue to push PO intake Increasing Oxygen Requirement secondary to weakness - No history of underlying lung disease, lifetime non-smoker, no hx or evidence of CHF - CXR, CTA last admission showing basilar atelectasis without consolidation. no indications for infection. - Continue O2 per nasal cannula PRN while on hospice Severe Protein Calore Malnutrition - patient continues to struggle with nutrition despite guidance from us and nutrition on increasing calorie intake through calorie dense Boost and other foods - mirtazapine 15 mg HS and marinol 2.5 mg TID for appetite stimulation - Discussed with family eating habits and they say she has not been eating at home for some time either Bowel regimen - continue magox and sennakot, miralax to keep bowels moving GERD cont pepcid BID -Continue other home medications as prescribed otherwise -Discharge home with hospice Pending Studies at Discharge: No Stand-Alone Forms: My [facility] Medications and DC Order Prescriptions: Continued folic acid 1 mg tablet 1 mg PO DAILY Qty: 90 RF: 3 Xarelto 15 mg tablet 15 mg PO QPM Qty: 90 RF: 3 diclofenac sodium 1 % gel 4 g topical QID Qty: 100 RF: 5 mirtazapine 15 mg Tablet 15 mg PO HS Qty: 30 RF: 0 acetaminophen 325 mg Tablet 650 mg PO Q4H PRN (Reason: Pain) RF: 0 sennosides-docusate sodium [Senokot-S] 8.6-50 mg Tablet 1 tab PO QDL PRN (Reason: Constipation) RF: 0 melatonin 3 mg Tablet 3 mg PO HS RF: 0 zinc sulfate 220 mg Tablet 220 mg PO DAILY RF: 0 magnesium hydroxide [Milk of Magnesia] 400 mg/5 mL Suspension 30 ml PO DAILY PRN (Reason: Constipation) RF: 0 ascorbic acid (vitamin C) 500 mg Tablet 500 mg PO BID RF: 0 pantoprazole 40 mg Tablet,Delayed Release (Dr/Ec) 40 mg PO DAILYBB RF: 0 Fleet Enema 19-7 gram/118 mL Enema 133 ml ND DAILY PRN (Reason: Constipation) RF: 0 docusate sodium 100 mg Capsule 100 mg PO BID RF: 0 polyethylene glycol 3350 [Miralax] 17 gram/dose Powder 17 g PO QDL PRN (Reason: Constipation) RF: 0 polyethylene glycol 3350 [Miralax] 17 gram/dose Powder 17 g PO DAILY RF: 0 cholecalciferol (vitamin D3) [Vitamin D3] 50 mcg (2,000 unit) Capsule 50 mcg PO DAILY RF: 0 Therapeutic Multivit/Mineral 1 tab PO DAILY RF: 0 dronabinol [Marinol] 2.5 mg capsule 2.5 mg PO TID RF: 0 famotidine 20 mg tablet 20 mg PO QAM RF: 0 magnesium oxide 400 mg (241.3 mg magnesium) tablet 400 mg PO BID RF: 0 bisacodyl 10 mg suppository 10 mg ND DAILY PRN (Reason: Constipation) RF: 0 Discontinued nitrofurantoin monohyd/m-cryst [Macrobid] 100 mg Capsule 100 mg PO BID RF: 0 Discharge Orders: Discharge Order (Routine); Ordered 09/01/20 Ordered By: Anselmo Nunez Admission Data Admit Date/Time: 08/25/20 22:58 Attending Provider: Ryan Ibrahim Admit Provider: Lucie Mcmahon Primary Care Provider: Tomas Young Other Providers: Slade Mcgarry ; Mabel Higgins ; Tomas Díaz ; [facility] ; Amy Alva Other Interventions: Discharge Summary Assessment (RN) Last Done: 09/01/20 14:31 Supervising Physician Co-Signing Physician Notes I personally examined the patient and verified all phipps points of history and exam, discussed case, and agree with decision making with Dr Nunez. feels up to going home w hospice vitals noted nad heent nc at mmm breathing unlabored no accessory muscles good effort skin no rashes no pallor or icterus malnutrition/weakness -for home w hospice, stable for discharge under these circumstances otherwise as above Resident Activity Tracking Resident Involvement: Resident Care Provided Care Provided: Adult Hospital Medicine
[2020-09-01] MEDS: CARBOHYDRATES FOR HYPOGLYCEMIA PO PRN (07:30)
[2020-09-01] MEDS: ONDANSETRON INJ 2 MG/ML 2 ML VIAL IV SCH ×2 (07:32→12:59)
[2020-09-01] MEDS: MAGNESIUM OXIDE 400 MG TAB PO SCH (07:36)
[2020-09-01] MEDS: FAMOTIDINE 20 MG in SYRINGE 3 ML IV SCH (10:42)
[2020-09-01] MEDS: DOCUSATE SODIUM 100 MG CAP PO SCH (10:42)
--- NOTE | 2020-09-01 15:46 | Billing Data ---
Date of Service September 01, 2020 Coding Level of Care Code D/C Day Management <30 mins
== END 2020-09-01 14:47 | disposition hospice, home (50) | DRG 640 ==
LOC: ED 21:07 → 2N 22:58 → SUATTDRO 22:58 → 2N 23:32